=== PATIENT | female | born 1940 | race Caucasian/White ===

== ENCOUNTER 2020-08-21 09:09 | Inpatient (IN) | payer MEDICARE, OTHER, SELFPAY ==
[2020-08-21] VITALS (11 sets, daily range): BP systolic 109–126; BP diastolic 69–88; PULSE 86–129; RESP 16–33; TEMP 35.2–37.5; O2SAT 95–100; BMI 25.6; BMI 25.2; BMI 25.3
--- NOTE | 2020-08-21 09:34 | EKG12_ITS ---
Test Reason : NAUSEA/VOMITING Blood Pressure : / mmHG Vent. Rate : 117 BPM Atrial Rate : 088 BPM P-R Int : 000 ms QRS Dur : 082 ms QT Int : 346 ms P-R-T Axes : 000 005 014 degrees QTc Int : 482 ms Atrial fibrillation with premature ventricular or aberrantly conducted complexes Nonspecific ST and T wave abnormality Abnormal ECG Confirmed by JULIO C COOK, BRYANT ([id number]), makeup editor LEIA WHITE ([id number]) on 08/23/2020 10:44:14 AM Referred By: NAVEEN Confirmed By:BRYANT BUNCH MD
[2020-08-21] MEDS: 0.9% Normal Saline 1,000 ML 1000 ML IV (09:44)
[2020-08-21] MEDS: Ondansetron 4 MG/2 ML Vial IV ×2 (09:44→21:30)
--- NOTE | 2020-08-21 09:55 | RAD_ITS ---
STUDY: X-RAY CHEST REASON FOR EXAM: Female, 79 years old. N/V since Friday, pt. Just finished last radiation tx. for chest ca. on Friday, unable to eat or drink, cough TECHNIQUE: Single AP portable view of the chest. COMPARISON: None. FINDINGS: EKG electrodes are seen. Mild elevation of the left hemidiaphragm with infiltration in the left lower lobe. There is blunting of the left costophrenic angle. Mild degree of increased markings at the right lung base. Normal size heart. Normal mediastinum and juaquin. Normal visualized pulmonary arteries. There is atherosclerotic calcification of the aortic arch with tortuosity. There are diffuse degenerative changes of the visualized thoracic spine. Dextroscoliosis. Normal visualized ribs, clavicles, and shoulders. There is no demonstrated abnormality of the visualized soft tissue structures of the upper abdomen. RAD/Chest 1 View (Portable) IMPRESSION: Infiltration in the left lower lobe with blunting of the left costophrenic angle. Mild increased markings at the right lung base. Electronically Signed: Сергей England, at 10:10 EST , Service support ,
[2020-08-21 10:02] LABS: Absolute Lymphocyte Count 0.57 X10^3/uL (0.83-4.51); Absolute Neutrophil Count 3.3 X10^3/uL (2.0-7.7); Basophil# 0.01 X10^3/uL; Basophil% 0.2 % (0-1); Hemoglobin 11.8 g/dL (12.0-15.0); Lymphocyte # 0.57 X10^3/ul (4.0); Lymphocyte % 13.8 % (19-41); Mean Corp Hgb Conc 35.8 g/dL (32-36); Mean Corpuscular Hgb 30.1 pg (27.0-32.0); Mean Corpuscular Volume 84.2 fL (81-99); Mean Platelet Vol. 10.7 fl (6.2-12.0); Monocyte# 0.21 X10^3/uL; Monocyte% 5.1 % (0-10); NRBC Flagged by Analyzer 0 % (0-5); Neutrophil # 3.31 X10^3/uL (2.7-7.7); Neutrophil % 79.9 % (47-70); POSITIVE COUNT YES; POSITIVE DIFFERENTIAL YES; Platelet Count 78 K/mm3 (150-450); RBC Distribution Width CV 17.1 % (11.6-14.6); Red Blood Count 3.92 M/mm3 (4.2-5.4); White Blood Count 4.1 K/mm3 (4.4-11.0)
[2020-08-21 10:04] LABS: Differential Indicated SCAN CRITERIA MET
[2020-08-21 10:16] LABS: ALB/GLOB Ratio 0.8 RATIO (0.9-2.4); AST(SGOT) 17 U/L (15-37); Alanine Aminotransfer ALT/SGPT 27 U/L (13-56); Albumin, Serum 2.7 g/dL (3.2-5.0); Alkaline Phosphatase 66 U/L (45-117); Anion Gap 10 (5-15); BUN 10 mg/dL (7-18); BUN/Creat Ratio 13.7 RATIO (10-20); Calcium,Total 8.7 mg/dL (8.5-10.1); Chloride 94 mmol/L (98-107); Creatinine, Serum 0.73 mg/dL (0.55-1.02); EST Glomerular Filtration Rate 82 mL/min (>60); Est Glom Filt Rate - Afr Amer 99 mL/min (>60); Estimated Creatinine Clearance 36.08 ml/min; Globulin 3.4 g/dL (2.2-4.2); Glucose 144 mg/dL (74-106); Potassium 3.6 mmol/L (3.5-5.1); Protein, Total 6.1 g/dL (6.4-8.2); Sodium Level 131 mmol/L (136-145)
[2020-08-21 10:18] LABS: Differential Comment SCANNED
[2020-08-21 10:19] LABS: Lactic Acid 1.8 mmol/L (0.4-1.9); Platelet Estimate MOD DEC (ADEQ)
[2020-08-21 10:22] LABS: Mucous, Urine 0 SEEN /hpf (<or=2+); Squamous Epithelial Cells - UA 0 SEEN /hpf (5-10)
[2020-08-21 10:26] LABS: Color, Urine Yellow (Yellow); Glucose, Dipstick Normal (Normal); Ketone-Dipstick Negative (Negative); Leukocyte Esterase-Dipstick 500 /ul (Negative); Nitrite-Dipstick Positive (Negative); Occult Blood-Urine 50 /ul (Negative); Protein-Dipstick 30 mg/dl (Negative); Urine Bilirubin Dipstick Negative (Negative); Urine Clarity Cloudy (Clear); Urine Urobilinogen 1 mg/dl (Normal)
[2020-08-21 10:34] LABS: Bacteria 3+ /hpf (None Seen); Red Blood Cells-Urine 0-5 SEEN /hpf (0-5); White Blood Cells 25-50 SEEN /hpf (0-5)
--- NOTE | 2020-08-21 11:00 | ED.VISSUMM ---
- ER Visit Summary Date of Service: 08/21/20 Chief Complaint: Nausea and vomiting History of Present Illness: The patient is a 79 F with a history of chest cancer. She had chemotherapy. Her last treatment was 3 or 4 weeks ago. She also has a history of radiation therapy, last treatment was 3 days ago. She said her symptoms started last night. She cannot keep anything down. She cannot take her medications. She tried to take medicine for reflux, and she tried to drink some water, but she vomited them up. She denies any chest pain or shortness of breath, she does have a cough with sputum. Denies fevers, change in taste or smell. She denies abdominal pain or other GI symptoms. Denies urinary symptoms. She has a history of atrial fibrillation and takes a blood thinner shot Physical Examination: Afebrile. Heart rate 128, respiratory rate 22. Heart is irregularly irregular, tachycardic. Lungs are clear. Abdomen is soft and nontender. No guarding or rebound. Skin unremarkable. Alert and oriented. Test Results: EKG shows atrial fibrillation at a rate of 117. White count 4.1, hemoglobin 11.8, platelets 78, sodium 131, glucose 144, total bilirubin 1.4, urinalysis shows signs of infection. Troponin negative. Lactate 1.8. Covid 19 test negative. Cultures pending. Chest x-ray shows a left lower lobe infiltrate with increased markings at the right base. Reviewed by me and the radiologist. Emergency Department Course and Treatment: Patient was placed on monitor. Treated with IV fluids and Zofran. She continued to have a heart rate in the 100s to 120s. I will treat with additional fluids and Cardizem. She takes Cardizem at home. Troponin was negative. CBC showed some pancytopenia. Metabolic panel largely unremarkable. Urinalysis did show infection. Cultures are pending. She was treated with Rocephin. X-ray showed possible infiltrate, but she has a history of lung cancer, she does have a cough with sputum, but she has this at baseline. I am not convinced she has pneumonia. Her COVID-19 test was negative. I discussed the results with the hospitalist. She will evaluate for possible additional pneumonia antibiotic coverage. Patient is stable at this time will be admitted for further care. Treatment Plan: As above Disposition: Admission Impression: Lung cancer, atrial fibrillation, UTI, pneumonia This note was generated with [employer] dictation software. It may contain incorrect words, spelling, and punctuation that were not noted in review of the chart prior to signing ED Disposition - Plan for ED Patient: Referrals: Jamil Hooks MD [Primary Care Provider] -
[2020-08-21] MEDS: dilTIAZem 25 MG/5 ML Vial 10 MG IV BOLUS (11:44)
[2020-08-21] MEDS: Ceftriaxone 1 GM/50 ML BAG IV (12:10)
--- NOTE | 2020-08-21 12:45 | NURSING ---
Called lab. Lab stated they had enough urine from sample collected in ED to run legionella antigen and strep pneumoniae antigen.
--- NOTE | 2020-08-21 13:04 | US_ITS ---
STUDY: RENAL ULTRASOUND - COMPLETE REASON FOR EXAM: Female, 79 years old. UTI''S TECHNIQUE: Ultrasound evaluation of the kidneys was performed with real-time and static carson-scale imaging. COMPARISON: None. FINDINGS: RIGHT KIDNEY: Normal location of the right kidney, which is normal in size. The right kidney measures 10.0 x 4.3 x 5.0 cm. There is a normal cortex of the right kidney. The renal cortex measures 1.1 cm. There is no right renal mass or cyst. There are up to 7 mm right renal calculi. There is no right hydronephrosis. DISTAL RIGHT URETER: There is non-visualization of the distal right ureter. There is no demonstrated right ureterovesical junction calculus. There is a visualized right ureteral jet. LEFT KIDNEY: Normal location of the left kidney, which is normal in size. The left kidney measures 11.0 x 4.4 x 4.4 cm. There is a normal cortex of the left kidney. The renal cortex measures 1.0 cm. There is no left renal mass or cyst. There is a 5 mm calculus. There is no left hydronephrosis. DISTAL LEFT URETER: There is non-visualization of the distal left ureter. There is no demonstrated left ureterovesical junction calculus. There is a visualized left ureteral jet. BLADDER: The distended urinary bladder has a volume of 301 ml. There is a normal wall thickness of the distended urinary bladder. There is a right-sided posterior irregular intraluminal 1.6 x 1.4 x 1.2 cm nodule in the urinary bladder. There are no demonstrated bladder calculi. US/Kidney and Bladder IMPRESSION: Intraluminal irregular nodule in the urinary bladder possibly related to debris or small blood clots. Bilateral renal calculi, right more than left. No hydronephrosis. Electronically Signed: Ole Rodriguez DO at 23:54 EST Tel [phone], Service support ,
--- NOTE | 2020-08-21 13:04 | CT_ITS ---
STUDY: CT CHEST WITH CONTRAST REASON FOR EXAM: Female, 79 years old. SHORTNESS OF BREATH -- HX-LUNG CA, LAST CHEMO X3-4 WKS, LAST RADIATION X3 DAYS AGO -- NEGATIVE COVID RADIATION DOSAGE (If Supplied By Facility): CTDIvol = ( 11.41 ) mGy, DLP = ( 217.79 ) mGycm TECHNIQUE: Transaxial imaging was performed following intravenous administration of IV 100mL Isovue-300. Individualized dose optimization techniques were used for this CT. COMPARISON: None. FINDINGS: Ill-defined subpleural groundglass opacities are seen more prominent in the lung bases , may represent atypical pneumonia or viral pneumonia (COVID-19 ?). There is a soft tissue mass in the right lower lobe measures 5.3 x 4.4 cm consistent with neoplastic process. There is an infracarinal mediastinal mass encasing the left inferior pulmonary artery measuring approximately 8 x 6 x 4.4 cm consistent with metastatic lymphadenopathy. There is small left pleural effusion. Normal heart and pericardium. Normal enhanced pulmonary arteries. Normal aorta arch and descending thoracic aorta. Normal osseous structures. There is a mass in the right gland measures 2.7 x 2 cm may represent a metastatic lesion. CT/Chest WITH Contrast IMPRESSION: Ill-defined subpleural groundglass opacities are seen more prominent in the lung bases , may represent atypical pneumonia or viral pneumonia (COVID-19 ?). There is a soft tissue mass in the right lower lobe measures 5.3 x 4.4 cm consistent with neoplastic process. There is an infracarinal mediastinal mass encasing the left inferior pulmonary artery measuring approximately 8 x 6 x 4.4 cm consistent with metastatic lymphadenopathy. There is small left pleural effusion. There is no evidence of pulmonary embolus. Electronically Signed: Patricia Olivier, at 4:11 EST Tel , Service support ,
[2020-08-21] MEDS: Lactated Ringers 1,000 ML 70 ML IV (13:59)
--- NOTE | 2020-08-21 14:12 | HP.PCM_ITS ---
Problem List (1) Lung cancer Status: Acute (2) HTN (hypertension) Status: Chronic (3) Nausea & vomiting Status: Acute (4) GERD (gastroesophageal reflux disease) Status: Chronic (5) COPD (chronic obstructive pulmonary disease) Status: Chronic (6) PAF (paroxysmal atrial fibrillation) Status: Acute (7) Constipation Status: Chronic (8) Depression Status: Chronic (9) Thrush Status: Acute History of Present Illness Date of Admission: 08/21/20 Ms Terry is a 79 year old F with a recent dx, she thinks about April, of chest cancer (suspected lung as R main stem bronchus lesion noted on MRI order in the system) that she has been undergoing XRT and has had 1 round of chemo for this. She status that she has had issues swallowing and that she has nausea and vomiting intermittently at home and heartburn that has all been going on at times related to her XRT. She states that she presented today because she was so profoundly weak and hardly able to get OOB. (of note she did get OOB to wash her hands after using the bathroom independently while I was in the room). She states that she was not able to keep down her breakfast but is unable to tell me if she had nausea prior to eating. She states that she was very sick after her first chemo and that they have not done any chemo since and are planning on changing the regimen. She does admit that she knows her prognosis is not good overall but is unable to tell me where she has metastatic disease. She has not yet taken her meds today 2/2 her emesis this am. In the ED she was noted to be in A-fib with RVR and a rate 120-130 at rest. Her BP was WNL and she was satting 195-98% on RA. She states that she does wear 2 L at home. She also states that she has had an increased cough with a change in sputum production at home as well and states that she has been SOB. She is afebrile and her RR is in the 20's. Her lab work shows pancytopenia but a L shift. Her Na is 131, lactate is WNL and troponin is negative. Her UA looks infected with + nitrite and leuk esterase and 25-50 WBC on smear. CXR suggests LLL blunting and CT chest is pending. She was given IVF, Cardizem and started on CTX in the ED. She will be admitted to PCU for further care. Past Medical History Past Medical History (Chronic Problems): Chronic Problems HTN (hypertension) (Chronic) GERD (gastroesophageal reflux disease) (Chronic) COPD (chronic obstructive pulmonary disease) (Chronic) Constipation (Chronic) Depression (Chronic) Allergies codeine Adverse Reaction (Verified 08/21/20 09:10) Abd cramps/diarrhea Home Medications: Ambulatory Orders Medication Instructions Recorded Albuterol Inhaler [Ventolin Hfa 1 - 2 puff INHALATION Q4H PRN PRN 08/21/20 (SP)] Atenolol [Tenormin] 50 mg PO DAILY 08/21/20 Dexamethasone [Decadron] 2 mg PO QODAY 08/21/20 Diltiazem HCl [Cardizem] 120 mg PO DAILY 08/21/20 Enoxaparin Sodium [Lovenox] 40 mg SQ DAILY 08/21/20 Ipratropium/Albuterol Respimat 1 puff INHALATION 4X/DAY 08/21/20 [Combivent Respimat Inhal [place]] Nystatin 5 ml PO 4X/DAY 08/21/20 Ondansetron [Zofran] 8 mg PO Q8H PRN PRN 08/21/20 Polyethylene Glycol 3350 [Miralax] 17 gm PO PRN PRN 08/21/20 Prilosec 40 mg PO DAILY 08/21/20 Senna [Senokot] 1 tab PO PRN PRN 08/21/20 Wellbutrin Sr 150 mg PO DAILY 08/21/20 Surgical History: noncontributory Psychiatric History: No pertinent psych hx 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 Denies: Anorexia, Chills, Fever, Night Sweats, Weight Change Eyes: Denies: Blurred vision, Drainage, Eyelid Inflammation, Pain, Vision Change HEENT: Denies: Difficulty Hearing, Dysphasia, Head Aches, Nasal bleeding, Nasal Congestion, Post Nasal Drip, Sinus Congestion, Sinus Drainage, Sore Throat, Visual Changes Cardiovascular: Denies: Chest Pain, Claudication, Chest Pressure, Chest Tightness, Edema, Heaviness, Light Headedness, Orthopnea, Palpitations, Paroxysmal Noc. Dyspnea, Syncope Respiratory: Reports: Cough, Shortness of Breath, Shortness of breath upon exertion, Sputum production. Denies: Hemoptysis, Pleuritic Pain, Shortness of breath at rest, Wheezing Gastrointestinal: Reports: Constipation, Nausea, Vomiting. Denies: Abdominal Pain, Diarrhea, Dyspepsia, Hematemesis, Hematochezia, Melena Genitourinary: Reports: Dysuria. Denies: Frequency, Hematuria, Hesitancy, Incontinence, Nocturia, Retention, Urgency Musculoskeletal: Reports: Back Pain. Denies: Joint Pain, Joint stiffness, Joint swelling, Joint Tenderness, Muscle pain, Neck Pain Skin: Denies: Dryness, Jaundice, Lesions, Pruritis, Rash, Skin Changes, Wounds Neurological: Denies: Balance problems, Change in Speech, Slurred speech, Confusion, Difficulty swallowing, Focal weakness, Headaches, Incoordination, Numbness, Tingling, Tremor, Seizures Psychiatric: Denies: Anxiety, Depression Endocrine: Reports: Hx of Irradiation. Denies: Change in Body Habitus, Heat/ Cold Intolerance, Polydipsia, Polyuria, Hx of Thyroiditis Hematologic/ Lymphatic: Reports: Anemia. Denies: Adenopathy, Easy Bruising, Petechiae, Purpura VTE Information - Inpt Only VTE Present on Admission: No VTE Mechan Device Prophylaxis: SCD's VTE Pharm Prophylaxis ordered?: Yes Patient Problems: Active and Suspected Problems Lung cancer (Acute) Nausea & vomiting (Acute) PAF (paroxysmal atrial fibrillation) (Acute) Thrush (Acute) - Physical Exam Vitals/I&O's: Vital Signs Temp Pulse Resp BP Pulse Ox 97.9 F 86 20 H 119/75 100 08/21/20 12:50 08/21/20 12:50 08/21/20 12:50 08/21/20 12:50 08/21/20 12:50 Oxygen Flow Rate (L/min) 2 Oxygen Delivery Method Nasal Cannula Weight: 62.686 kg Body Mass Index (BMI) 25.2 Intake and Output for Last 24 Hours 08/19/20 08/20/20 08/21/20 23:59 23:59 23:59 Intake Total 1500 / 1500 Balance 1500 / 1500 General: Alert, Oriented x3, Cooperative, No apparent distress, Well developed, Well nourished, - - elderly WF sitting up in bed, mild SOB but appears comfortable overall HEENT: Atraumatic, PERRLA, EOMI, Normocephalic, EAC Clear Oral: No Gingival or Mucosal Lesions/ Ulcerations, Dry Mucosa, - - no thrush Neck: Supple, No JVD, Negative Carotid Bruits, Negative Hepatojugular Reflux, No Nodes, Trachea Midline, Thyroid Normal Size and Texture Lungs: Clear to auscultation, No rhonchi, No wheeze, No rales, Diminished Cardiovascular: Irregular Rate, Tachycardic, - - irreg rhythm Abdomen: Bowel Sounds Present, Soft, Non Tender, Non-Distended, No Hepato- splenomegaly Extremities: No clubbing, No cyanosis, No edema, Capillary Refill Less than 3 Seconds, Peripheral Pulses Normal Skin: No rashes, No breakdown Musculoskeletal: No Tenderness to Palpation of Joints or Extremities, No Muscle Wasting, Arthritic Changes Lymphatic: No Cervical, Supraclavicular, or Inguinal Adenopathy Neurological: Cranial nerves II-XII grossly intact, Deep Tendon Reflexes 2+/4 and Symmetrical, Neuro grossly intact, Muscle tone normal, Sensory exam intact to light touch and pain, Coordination normal Psych/Mental Status: Normal Affect, Appropriate Microbiology Past 72 Hours 08/21/20 09:40 Mucosa - Nose SARS-CoV-2 Antigen (Rapid) - Final Laboratory Results 08/21/20 09:30: WBC 4.1 L, RBC 3.92 L, Hgb 11.8 L, Hct 33.0 L, MCV 84.2, MCH 30.1, MCHC 35.8, RDW Std Deviation 51.0 H, RDW Coeff of Rashid 17.1 H, Plt Count 78 L, MPV 10.7, Immature Gran % (Auto) 1.000 H, Neut % (Auto) 79.9 H, Lymph % (Auto) 13.8 L, Charles % (Auto) 5.1, Eos % (Auto) 0.0, Baso % (Auto) 0.2, Absolute Neuts (auto) 3.3, Absolute Lymphs (auto) 0.57 L, Nucleated RBC % 0, Differential Comment SCANNED, Diff Path Review December foll, Platelet Estimate MOD 08/21/20 09:30: Sodium 131 L, Potassium 3.6, Chloride 94 L, Carbon Dioxide 27.0, Anion Gap 10, BUN 10, Creatinine 0.73, Estim Creat Clear Calc 36.08, Est GFR (MDRD) Af Amer 99, Est GFR (MDRD) Non-Af 82, BUN/Creatinine Ratio 13.7, Glucose 144 H, Calcium 8.7, Total Bilirubin 1.40 H, AST 17, ALT 27, Alkaline Phosphatase 66, Total Protein 6.1 L, Albumin 2.7 L, Globulin 3.4, Albumin/Globulin Ratio 0.8 L 08/21/20 09:30: Lactic Acid 1.8 08/21/20 09:30: Troponin I < 0.015 08/21/20 10:14: Urine Color Yellow, Urine Clarity Cloudy, Urine pH 7.0, Ur Specific [place] 1.010, Urine Protein 30 H, Urine Glucose (UA) Normal, Urine Ketones Negative, Urine Occult Blood 50 H, Urine Nitrite Positive H, Urine Bilirubin Negative, Urine Urobilinogen 1 H, Ur Leukocyte Esterase 500 H, Urine RBC 0-5 SEEN, Urine WBC 25-50 SEEN, Ur Squamous Epith Cells 0 SEEN, Urine Bacteria 3+, Urine Mucus 0 SEEN Current Medications Acetaminophen (Acetaminophen 325 Mg Suppository) 650 mg RECTAL Q4H PRN PRN PRN Reason: Pain Score 1-10/Temp > 100.7 F Albuterol Sulfate (Albuterol 2.5 Mg/3 Ml Vial.Neb.) 2.5 mg INHALATION Q2H PRN PRN PRN Reason: SOB/Wheezing Atenolol (Atenolol 50 Mg Tablet) 50 mg PO DAILY [facility] Dexamethasone (Dexamethasone 4 Mg Tablet) 4 mg PO TIDCM [facility] Diltiazem HCl (Diltiazem Cd 120 Mg Capsule) 120 mg PO DAILY [facility] Enoxaparin Sodium (Enoxaparin 40 Mg/0.4 Ml Syringe) 40 mg SC DAILY [facility] Ceftriaxone Sodium (Rocephin) 1 gm in 50 mls @ 100 mls/hr IV Q24 BRAD Stop: 08/29/20 10:01 Azithromycin 500 mg/ Dextrose 255 mls @ 250 mls/hr IV X1 ONE Stop: 08/21/20 14:16 Azithromycin 500 mg/ Dextrose 255 mls @ 250 mls/hr IV Q24 [facility] Lactated Ringer's () 1,000 mls @ 70 mls/hr IV .[id number] [facility] Last Admin: 08/21/20 13:59 Dose: 70 mls/hr Documented by: Pantoprazole Sodium 40 mg/ (Sodium Chloride) 110 mls @ 330 mls/hr IV Q24 BRAD Sodium Chloride () 250 mls @ 15 mls/hr IV .[id number] PRN PRN Reason: Saline Flush Sodium Chloride () 250 mls @ 15 mls/hr IV .[id number] PRN PRN Reason: Additional IVPB Infusion Morphine Sulfate (Morphine 2 Mg/Ml Syringe) 2 mg IV Q3H PRN PRN PRN Reason: Pain Score 6-10 Ondansetron HCl (Ondansetron 4 Mg/2 Ml Vial) 4 mg IV Q8H PRN PRN PRN Reason: NAUSEA/VOMITING Polyethylene Glycol (Polyethylene Glycol 3350 17 Gm Packet) 17 gm PO PRN PRN PRN Reason: Constipation Sodium Chloride (0.9% Saline Lock 10 Ml Syringe) 10 - 40 ml IV UD PRN PRN Reason: SALINE FLUSH Assessment/Plan All Active Problems Lung cancer (Acute) Nausea & vomiting (Acute) PAF (paroxysmal atrial fibrillation) (Acute) Thrush (Acute) Nausea and vomiting -sounds like this is a chronic issue with acute exacerbation -check CT chest for esophageal issues with hx -could have motility issues related to chemo -antiemetics -IVF -CLD for now -continue home decadron--> may help with nausea too PAF now in RVR -continue atenolol and Cardizem -takes Lovenox 40 mg daily but suspect this is for her cancer and DVT prophylaxis -not on AC otherwise -maybe a high bleeding risk with malignancy Pancytopenia 2/2 Chemotherapy -no need for transfusions -monitor Suspected UTI -UA looks infected -start CTX -urine cx pending -blood cx pending ? PNA -CXR suggestive and pt with cough and change in sputum -CT chest pending with cancer hx -check urine antigens -no recent admissions -prn aerosols -CTX and Azithro for now Hyponatremia -suspect related to Lung Ca -trend Chest Cancer -suspect lung based on conversation with pt but unable to 100% verify -on XRT and chemo -pt states that she knows her prognosis is poor and thinks she was diagonosed with this in 04/2020 -sees Dr. Cosme -CT chest Pending HTN -continue home meds COPD -prn nebs -has stopped smoking GERD -PPI Constipation -miralax PRN Thrush -Nystatin Depression -cont Wellbutrin DVT prophylaxis -Lovenox Code Status -Pt is very clear and ED nurse witnessed the conversation--> DNR-CCA no ETT Inpatient E&M: 29803 Init Hosp L3
[2020-08-21] MEDS: Ipratropium/Albuterol Sulfate 3 ML AMPUL.NEB INHALATION (19:50)
[2020-08-21] MEDS: NYSTATIN 500,000 UNIT/5 ML UDC 500000 UNIT PO (21:29)
[2020-08-21] MEDS: 0.9% Saline Lock 10 ML Syringe IV (21:30)
--- NOTE | 2020-08-21 22:09 | EKG12_ITS ---
Test Reason : CP Blood Pressure : / mmHG Vent. Rate : 121 BPM Atrial Rate : 113 BPM P-R Int : 000 ms QRS Dur : 088 ms QT Int : 344 ms P-R-T Axes : 000 008 010 degrees QTc Int : 488 ms Atrial fibrillation with premature ventricular or aberrantly conducted complexes Nonspecific ST-T Change Abnormal ECG When compared with ECG of 21-AUG-2020 09:51, MANUAL COMPARISON REQUIRED, DATA IS UNCONFIRMED Confirmed by NOMI COOK, NITHIN ([id number]), supervising film or videotape editor LEIA WHITE ([id number]) on 08/31/2020 12:01:17 PM Referred By: JER Confirmed By:LISA MOSHER MD
[2020-08-21] MEDS: Atenolol 50 MG Tablet PO (22:30)
--- NOTE | 2020-08-21 23:49 | PCS.PANDOC ---
PANDEMIC DOCUMENTATION INITIATED: Date: 08/21/2020 Time: 1900
[2020-08-22] VITALS (16 sets, daily range): BP systolic 106–136; BP diastolic 71–85; PULSE 74–106; RESP 16–22; TEMP 36.4–37.3; O2SAT 93–99
[2020-08-22] MEDS: Lactated Ringers 1,000 ML 70 ML IV ×2 (04:14→19:40)
[2020-08-22 06:08] LABS: Absolute Lymphocyte Count 0.54 X10^3/uL (0.83-4.51); Absolute Neutrophil Count 2.7 X10^3/uL (2.0-7.7); Basophil# 0.01 X10^3/uL; Basophil% 0.3 % (0-1); Eosinophil# 0.01 X10^3/uL; Eosinophils% 0.3 % (0-5); Hematocrit 28.6 % (37-47); Hemoglobin 9.9 g/dL (12.0-15.0); Lymphocyte # 0.54 X10^3/ul (4.0); Lymphocyte % 15.1 % (19-41); Mean Corp Hgb Conc 34.6 g/dL (32-36); Mean Corpuscular Hgb 29.2 pg (27.0-32.0); Mean Corpuscular Volume 84.4 fL (81-99); Mean Platelet Vol. 10.4 fl (6.2-12.0); Monocyte# 0.24 X10^3/uL; Monocyte% 6.7 % (0-10); NRBC Flagged by Analyzer 0 % (0-5); Neutrophil # 2.74 X10^3/uL (2.7-7.7); Neutrophil % 76.8 % (47-70); POSITIVE COUNT YES; POSITIVE DIFFERENTIAL YES; Platelet Count 82 K/mm3 (150-450); RBC Distribution Width CV 17.1 % (11.6-14.6); Red Blood Count 3.39 M/mm3 (4.2-5.4); White Blood Count 3.6 K/mm3 (4.4-11.0)
[2020-08-22 06:12] LABS: Differential Indicated SCAN CRITERIA MET
[2020-08-22 06:45] LABS: ALB/GLOB Ratio 0.9 RATIO (0.9-2.4); AST(SGOT) 11 U/L (15-37); Alanine Aminotransfer ALT/SGPT 20 U/L (13-56); Albumin, Serum 2.3 g/dL (3.2-5.0); Alkaline Phosphatase 55 U/L (45-117); Anion Gap 5 (5-15); BUN 7 mg/dL (7-18); Calcium,Total 7.8 mg/dL (8.5-10.1); Chloride 101 mmol/L (98-107); Creatinine, Serum 0.54 mg/dL (0.55-1.02); EST Glomerular Filtration Rate 116 mL/min (>60); Est Glom Filt Rate - Afr Amer 140 mL/min (>60); Estimated Creatinine Clearance 36.08 ml/min; Globulin 2.5 g/dL (2.2-4.2); Glucose 116 mg/dL (74-106); Magnesium 1.8 mg/dL (1.6-2.6); Phosphorus 2.6 mg/dL (2.5-4.9); Potassium 3.3 mmol/L (3.5-5.1); Protein, Total 4.8 g/dL (6.4-8.2); Sodium Level 134 mmol/L (136-145); Thyroid Stim Hormone (TSH) 1.36 uIU/mL (0.358-3.74)
[2020-08-22 06:55] LABS: Differential Comment SCANNED; Platelet Estimate MOD DEC (ADEQ)
[2020-08-22] MEDS: Ipratropium/Albuterol Sulfate 3 ML AMPUL.NEB INHALATION ×2 (07:19→13:46)
[2020-08-22] MEDS: dexAMETHasone 2 MG TABLET PO (10:03)
[2020-08-22] MEDS: dilTIAZem CD 120 MG Capsule PO (10:03)
[2020-08-22] MEDS: Enoxaparin 40 MG/0.4 ML Syringe SC (10:03)
[2020-08-22] MEDS: Atenolol 50 MG Tablet PO (10:15)
[2020-08-22] MEDS: Ceftriaxone 1 GM/50 ML BAG IV (10:49)
--- NOTE | 2020-08-22 11:20 | CASEMGMT ---
RN SURENDRA BELT PRESS OPERATOR CM to room to meet with patient for initial transition planning/care coordination assessment. MASHA AGOSTO introduced self and role at [facility]. Pt voices understanding and consents to assessment at this time. Pt resting in bed in no distress at this time. Pt is A/O at this time and answers all questions appropriately. Care providers, pharmacy, and demographics verified/updated at this time. PCP: Dr Jamil Hooks Specialists: Dr Cosme--oncology, Dr Escalera--nephrology [facility]erred [facility]acy: [facility] Insurance: [facility] Prescription Benefit: Yes Living Will/HPOA: Has both LW and Healthcare POA, who is her daughter, Lin. LNOK: Daughter, Lin/POSusan. 2 sons Living Arrangements: Lives alone in one-story home w/ramp entrance. Independent w/ADL's. Lin has been staying with her on/off to assist with IADL's--laundry, meals, grocery shopping, home tasks. Pt manages her own appts and medications. Transportation: Daughter, Lin DME: has the following DME: shower chair, rails/grab bars, hand held shower, nebulizer, walker, O2 @ 2 L/M continuously through [employer]. States daughter had portable tank in her car she can bring in @ d/c. Plans on getting a higher toilet seat soon. Pt states no need for further DME at this time. HHC/SNF: No hx of SNF. Has had HHC in the past/couple months ago--an agency out of [employer], but she does not remember the name. She states it was for therapy but she was too weak to participate so she cancelled their service. She states may be interested in HHC for nursing, but wants to talk with her daughter about it first. She does not want to go with the same agency as previously. Pt provided with list of local HHC agencies. Pt wishes to return home and states has no concerns with going home at time of discharge. CM to follow for any increase in home oxygen needs and any further discharge planning/needs. Pt voices no further concerns/needs at this time. Advised pt to ask for CM if any further questions/concerns/needs arise. Voices understanding. PLAN: Home. May be interested in HHC for SN. Does not want therapy. Follow for any increase in O2 needs Bobbi BSN RN CM
--- NOTE | 2020-08-22 11:22 | PN_ITS ---
Patient Problems: Active and Suspected Problems Lung cancer (Acute) Nausea & vomiting (Acute) PAF (paroxysmal atrial fibrillation) (Acute) Thrush (Acute) Subjective: Still with nausea and vomiting. Had dry heaves this am. Still happening whenever she takes in food. States that she has tumor that sometimes presses on her esophagus. Feels a little better, maybe, but not able to take in much PO. Vitals/I&O's: Vital Signs Temp Pulse Resp BP Pulse Ox 99.2 F H 106 H 18 126/84 H 94 08/22/20 10:00 08/22/20 10:00 08/22/20 10:00 08/22/20 10:00 08/22/20 10:00 Oxygen Flow Rate (L/min) 2 Oxygen Delivery Method Room Air Weight: 62.7 kg Body Mass Index (BMI) 25.2 Intake and Output for Last 24 Hours 08/20/20 08/21/20 08/22/20 23:59 23:59 23:59 Intake Total 2778 / 2778 879.75 / 879.75 Output Total 650 / 650 Balance 2778 / 2778 229.75 / 229.75 General: Alert, Oriented x3, Cooperative, No apparent distress, - - elderly WF sitting up in bed, appears comfortable, nsg at bedside Lungs: No rhonchi, No wheeze, No rales, Diminished Cardiovascular: Regular rate, Regular Rhythm, Normal S1, Normal S2, No murmurs, No Ectopic Activity, No rub noted, No Gallop Abdomen: Bowel Sounds Present, Soft, Non Tender, Non-Distended, No Hepato- splenomegaly Extremities: No clubbing, No cyanosis, No edema, Capillary Refill Less than 3 Seconds, Peripheral Pulses Normal Skin: No rashes, No breakdown Musculoskeletal: No Tenderness to Palpation of Joints or Extremities, No Muscle Wasting, Arthritic Changes Neurological: Cranial nerves II-XII grossly intact, Neuro grossly intact Psych/Mental Status: Normal Affect, Appropriate Microbiology Past 72 Hours 08/21/20 11:15 Urine, Random Urine Culture - Preliminary 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 08/21/20 11:15 Urine, Clean Catch Legionella Antigen - Final 08/21/20 11:15 Urine, Clean Catch Streptococcus pneumoniae Antigen (M - Final 08/21/20 09:40 Mucosa - Nose SARS-CoV-2 Antigen (Rapid) - Final Laboratory Results 08/22/20 04:43: COVID-19 (ALLY) Not Detected 08/22/20 05:20: WBC 3.6 L, RBC 3.39 L, Hgb 9.9 L, Hct 28.6 L, MCV 84.4, MCH 29.2, MCHC 34.6, RDW Std Deviation 52.0 H, RDW Coeff of Rashid 17.1 H, Plt Count 82 L, MPV 10.4, Immature Gran % (Auto) 0.800, Neut % (Auto) 76.8 H, Lymph % (Auto) 15.1 L, [place] % (Auto) 6.7, Eos % (Auto) 0.3, Baso % (Auto) 0.3, Absolute Neuts ( auto) 2.7, Absolute Lymphs (auto) 0.54 L, Nucleated RBC % 0, Differential Comment SCANNED, Diff Path Review December, Platelet Estimate MOD 08/22/20 05:20: Sodium 134 L, Potassium 3.3 L, Chloride 101, Carbon Dioxide 28.0, Anion Gap 5, BUN 7, Creatinine 0.54 L, Estim Creat Clear Calc 36.08, Est G FR (MDRD) Af Amer 140, Est GFR (MDRD) Non-Af 116, BUN/Creatinine Ratio 13.0, Glucose 116 H, Calcium 7.8 L, Phosphorus 2.6, Magnesium 1.8, Total Bilirubin 1.10 H, AST 11 L, ALT 20, Alkaline Phosphatase 55, Total Protein 4.8 L, Albumin 2.3 L, Globulin 2.5, Albumin/Globulin Ratio 0.9, TSH 1.36 Current Medications Acetaminophen (Acetaminophen 650 Mg Suppository) 650 mg RECTAL Q4H PRN PRN PRN Reason: Pain Score 1-10/Temp > 100.7 F Albuterol Sulfate (Albuterol 2.5 Mg/3 Ml Vial.Neb.) 2.5 mg INHALATION Q2H PRN PRN PRN Reason: SOB/Wheezing Albuterol/Ipratropium (Ipratropium/Albuterol Sulfate 3 Ml Ampul.Neb) 3 ml INHALATION Q6HWA.RT [facility] Last Admin: 08/22/20 07:19 Dose: 3 ml Documented by: Atenolol (Atenolol 50 Mg Tablet) 50 mg PO DAILY [facility] Last Admin: 08/22/20 10:15 Dose: 50 mg Documented by: Dexamethasone (Dexamethasone 2 Mg Tablet) 2 mg PO QODAY [facility] Last Admin: 08/22/20 10:03 Dose: 2 mg Documented by: Diltiazem HCl (Diltiazem Cd 120 Mg Capsule) 120 mg PO DAILY [facility] Last Admin: 08/22/20 10:03 Dose: 120 mg Documented by: Enoxaparin Sodium (Enoxaparin 40 Mg/0.4 Ml Syringe) 40 mg SC DAILY [facility] Last Admin: 08/22/20 10:03 Dose: 40 mg Documented by: Ceftriaxone Sodium (Rocephin) 1 gm in 50 mls @ 100 mls/hr IV Q24 [facility] Stop: 08/29/20 10:01 Last Admin: 08/22/20 10:49 Dose: 100 mls/hr Documented by: Azithromycin 500 mg/ Dextrose 255 mls @ 250 mls/hr IV Q24 [facility] Lactated Ringer's () 1,000 mls @ 70 mls/hr IV .[id number] [facility] Last Infusion: 08/22/20 10:49 Dose: 0 mls/hr Documented by: Pantoprazole Sodium 40 mg/ (Sodium Chloride) 110 mls @ 330 mls/hr IV Q24 [facility] Last Infusion: 08/22/20 10:35 Dose: Infused Documented by: Sodium Chloride () 250 mls @ 15 mls/hr IV .[id number] PRN PRN Reason: Saline Flush Last Infusion: 08/22/20 10:51 Dose: 0 mls/hr Documented by: Sodium Chloride () 250 mls @ 15 mls/hr IV .[id number] PRN PRN Reason: Additional IVPB Infusion Morphine Sulfate (Morphine 2 Mg/Ml Syringe) 2 mg IV Q3H PRN PRN PRN Reason: Pain Score 6-10 Nystatin (Nystatin 500,000 Unit/5 Ml Udc) 500,000 unit PO 4X/DAY [facility] Last Admin: 08/22/20 10:01 Dose: Not Given Documented by: Ondansetron HCl (Ondansetron 4 Mg/2 Ml Vial) 4 mg IV Q8H PRN PRN PRN Reason: NAUSEA/VOMITING Last Admin: 08/21/20 21:30 Dose: 4 mg Documented by: Polyethylene Glycol (Polyethylene Glycol 3350 17 Gm Packet) 17 gm PO PRN PRN PRN Reason: Constipation Sodium Chloride (0.9% Saline Lock 10 Ml Syringe) 10 - 40 ml IV UD PRN PRN Reason: SALINE FLUSH Last Admin: 08/21/20 21:30 Dose: 10 ml Documented by: AMERICO Vital Signs/Narrative: Vital Signs Temp Pulse Resp BP Pulse Ox 08/22/20 10:00 99.2 F H 106 H 18 126/84 H 94 08/22/20 07:51 95 22 H 08/22/20 07:41 98 Medical Necessity - Tobacco Use Smoking Status: Former smoker Assessment/Plan All Active Problems Lung cancer (Acute) Nausea & vomiting (Acute) PAF (paroxysmal atrial fibrillation) (Acute) Thrush (Acute) Nausea and vomiting -suspect this is related to her mediastinal LAD -consult Onc for help with disease progression and options--> ? EGD with stent vs PEG vs PEDIATRIC ASSISTANT -need input -antiemetics -cont IVF -CLD for now -continue home decadron--> may help with nausea too PAF -continue BB and hold CCB but will switch to IV BB with issues with PO intake -may need prn Cardizem -takes Lovenox 40 mg daily but suspect this is for her cancer and DVT prophylaxis -not on AC otherwise -maybe a high bleeding risk with malignancy Pancytopenia 2/2 Chemotherapy -no need for transfusions -drop in hgb but suspect dilutional -no s/o bleeding -monitor GNR LF UTI -UA looks infected -CTX and await identification and sensitivities -urine cx pending but Gram Stain + for GNRLF -blood cx pending -US shows small B Calculi but no hydro or pyelo SOB -CXR suggestive and pt with cough and change in sputum -CT with no infiltrate/PE -urine antigens negative -d/c azithro -prn aerosols -suspect related to baseline lung disease and cancer Hyponatremia -suspect related to Lung Ca/dehydration -better today -trend Lung Cancer of unknown type -CT chest from 08/21 shows a 5.3 x4.4 RLL soft tissue mass and infracarinal mediastinal mass encasing the L inferior pulmonary artery that is 8 x 6 x 4.4 c/w LAD -suspect that this mass may be contributing digestive issues -on XRT and chemo -sees Dr. Cosme--> will consult today with ongoing issues and CT findings for prognosis -pt states that she knows her prognosis is poor and thinks she was diagnosed with this in 04/2020 HTN -change to IV with limited PO intake -will use cardizem PRN for HR COPD -prn nebs -has stopped smoking GERD -PPI Constipation -miralax PRN Thrush -Nystatin Depression -cont Wellbutrin DVT prophylaxis -Lovenox Code Status -Pt is very clear and ED nurse witnessed the conversation--> DNR-CCA no ETT Inpatient E&M: 85000 Subs Hosp L3
[2020-08-22 13:11] LABS: Pathologist Review Reviewed
[2020-08-22 13:12] LABS: Pathologist Review Reviewed
[2020-08-22] MEDS: Metoprolol Tartrate 5 MG/5 ML Vial IV ×2 (18:07→23:40)
[2020-08-22] MEDS: NYSTATIN 500,000 UNIT/5 ML UDC 500000 UNIT PO (20:57)
[2020-08-22] MEDS: 0.9% Saline Lock 10 ML Syringe IV (23:39)
[2020-08-23] VITALS (18 sets, daily range): BP systolic 115–151; BP diastolic 71–79; PULSE 62–112; RESP 16–20; TEMP 36.1–36.6; O2SAT 95–100
[2020-08-23 06:05] LABS: Absolute Lymphocyte Count 0.59 X10^3/uL (0.83-4.51); Absolute Neutrophil Count 1.9 X10^3/uL (2.0-7.7); Basophil# 0.01 X10^3/uL; Basophil% 0.4 % (0-1); Hematocrit 27.7 % (37-47); Hemoglobin 9.3 g/dL (12.0-15.0); Lymphocyte # 0.59 X10^3/ul (4.0); Lymphocyte % 21.8 % (19-41); Mean Corp Hgb Conc 33.6 g/dL (32-36); Mean Corpuscular Hgb 28.6 pg (27.0-32.0); Mean Corpuscular Volume 85.2 fL (81-99); Mean Platelet Vol. 9.9 fl (6.2-12.0); Monocyte# 0.18 X10^3/uL; Monocyte% 6.6 % (0-10); NRBC Flagged by Analyzer 0 % (0-5); Neutrophil # 1.89 X10^3/uL (2.7-7.7); Neutrophil % 69.7 % (47-70); POSITIVE COUNT YES; POSITIVE DIFFERENTIAL YES; Platelet Count 83 K/mm3 (150-450); RBC Distribution Width CV 17.2 % (11.6-14.6); RBC Distribution Width SD 52.6 fl (35.1-43.9); Red Blood Count 3.25 M/mm3 (4.2-5.4); White Blood Count 2.7 K/mm3 (4.4-11.0)
[2020-08-23] MEDS: Ipratropium/Albuterol Sulfate 3 ML AMPUL.NEB INHALATION ×3 (06:44→19:27)
[2020-08-23 06:48] LABS: Differential Indicated SCAN CRITERIA MET
[2020-08-23] MEDS: Metoprolol Tartrate 5 MG/5 ML Vial IV ×4 (06:54→23:20)
[2020-08-23] MEDS: 0.9% Saline Lock 10 ML Syringe IV ×2 (06:54→23:21)
[2020-08-23 07:15] LABS: Anisocytosis 1+; Differential Comment SCANNED; Microcytosis 1+
[2020-08-23] MEDS: Enoxaparin 40 MG/0.4 ML Syringe SC (08:40)
[2020-08-23] MEDS: NYSTATIN 500,000 UNIT/5 ML UDC 500000 UNIT PO ×4 (08:40→20:10)
[2020-08-23] MEDS: Ceftriaxone 1 GM/50 ML BAG IV (09:17)
--- NOTE | 2020-08-23 09:49 | PCM.PN.HOSP ---
Patient Problems: Active and Suspected Problems Lung cancer (Acute) Nausea & vomiting (Acute) PAF (paroxysmal atrial fibrillation) (Acute) Thrush (Acute) Reason for Visit: dysphagia Subjective: tolerating clear liquids so far. would like diet advanced. Vitals/I&O's: Vital Signs Temp Pulse Resp BP Pulse Ox 36.6 C 70 20 H 151/76 H 99 08/23/20 05:40 08/23/20 06:54 08/23/20 06:45 08/23/20 06:54 08/23/20 06:45 Oxygen Flow Rate (L/min) 2 Oxygen Delivery Method Nasal Cannula Weight: 62.7 kg Body Mass Index (BMI) 25.2 Intake and Output for Last 24 Hours 08/21/20 08/22/20 08/23/20 23:59 23:59 23:59 Intake Total 2778 / 2778 2200.75 / 2200.75 110 / 110 Output Total 650 / 650 300 / 300 Balance 2778 / 2778 1550.75 / 1550.75 -190 / -190 General: Alert, No apparent distress HEENT: Atraumatic, Normocephalic Oral: Moist Mucosa, No Gingival or Mucosal Lesions/ Ulcerations Neck: No Nodes, Thyroid Normal Size and Texture Lungs: Clear to auscultation, Normal air movement, No rhonchi, No wheeze, No rales Cardiovascular: Regular rate, Regular Rhythm, Normal S1, Normal S2, No murmurs Abdomen: Bowel Sounds Present, Soft, Non Tender, Non-Distended, No Hepato-splenomegaly Extremities: No edema, No Calf Tenderness Microbiology Past 72 Hours 08/21/20 11:15 Urine, Random Urine Culture - Final Klebsiella pneumoniae sp pneum 08/21/20 11:15 Urine, Clean Catch Legionella Antigen - Final 08/21/20 11:15 Urine, Clean Catch Streptococcus pneumoniae Antigen (M - Final 08/21/20 09:40 Mucosa - Nose SARS-CoV-2 Antigen (Rapid) - Final Laboratory Results 08/21/20 09:30: Diff Path Review Reviewed 08/22/20 05:20: Diff Path Review Reviewed 08/23/20 05:35: WBC 2.7 L, RBC 3.25 L, Hgb 9.3 L, Hct 27.7 L, MCV 85.2, MCH 28.6, MCHC 33.6, RDW Std Deviation 52.6 H, RDW Coeff of Rashid 17.2 H, Plt Count 83 L, MPV 9.9, Immature Gran % (Auto) 1.500 H, Neut % (Auto) 69.7, Lymph % (Auto) 21.8, [place] % (Auto) 6.6, Eos % (Auto) 0.0, Baso % (Auto) 0.4, Absolute Neuts (auto) 1.9 L, Absolute Lymphs (auto) 0.59 L, Nucleated RBC % 0, Differential Comment SCANNED, Diff Path Review May foll, Anisocytosis 1+, Microcytosis 1+ Current Medications Acetaminophen (Acetaminophen 650 Mg Suppository) 650 mg RECTAL Q4H PRN PRN PRN Reason: Pain Score 1-10/Temp > 100.7 F Albuterol Sulfate (Albuterol 2.5 Mg/3 Ml Vial.Neb.) 2.5 mg INHALATION Q2H PRN PRN PRN Reason: SOB/Wheezing Albuterol/Ipratropium (Ipratropium/Albuterol Sulfate 3 Ml Ampul.Neb) 3 ml INHALATION Q6HWA.RT [facility] Last Admin: 08/23/20 06:44 Dose: 3 ml Documented by: Dexamethasone (Dexamethasone 2 Mg Tablet) 2 mg PO QODAY [facility] Last Admin: 08/22/20 10:03 Dose: 2 mg Documented by: Enoxaparin Sodium (Enoxaparin 40 Mg/0.4 Ml Syringe) 40 mg SC DAILY [facility] Last Admin: 08/23/20 08:40 Dose: 40 mg Documented by: Ceftriaxone Sodium (Rocephin) 1 gm in 50 mls @ 100 mls/hr IV Q24 [facility] Stop: 08/29/20 10:01 Last Admin: 08/23/20 09:17 Dose: 100 mls/hr Documented by: Azithromycin 500 mg/ Dextrose 255 mls @ 250 mls/hr IV Q24 [facility] Last Infusion: 08/22/20 12:52 Dose: Infused Documented by: Lactated Ringer's () 1,000 mls @ 70 mls/hr IV .[id number] [facility] Last Admin: 08/22/20 19:40 Dose: 70 mls/hr Documented by: Pantoprazole Sodium 40 mg/ (Sodium Chloride) 110 mls @ 330 mls/hr IV Q24 [facility] Last Infusion: 08/23/20 09:13 Dose: Infused Documented by: Sodium Chloride () 250 mls @ 15 mls/hr IV .[id number] PRN PRN Reason: Saline Flush Last Admin: 08/23/20 09:21 Dose: 15 mls/hr Documented by: Sodium Chloride () 250 mls @ 15 mls/hr IV .[id number] PRN PRN Reason: Additional IVPB Infusion Lidocaine/Diphenhydr/Alum/Mg/Simeth (Bmx Liquid 180 Ml) 10 ml PO Q4H [facility] Metoprolol Tartrate (Metoprolol Tartrate 5 Mg/5 Ml Vial) 5 mg IV Q6 [facility] Last Admin: 08/23/20 06:54 Dose: 5 mg Documented by: Morphine Sulfate (Morphine 2 Mg/Ml Syringe) 2 mg IV Q3H PRN PRN PRN Reason: Pain Score 6-10 Nystatin (Nystatin 500,000 Unit/5 Ml Udc) 500,000 unit PO 4X/DAY [facility] Last Admin: 08/23/20 08:40 Dose: 500,000 unit Documented by: Ondansetron HCl (Ondansetron 4 Mg/2 Ml Vial) 4 mg IV Q8H PRN PRN PRN Reason: NAUSEA/VOMITING Last Admin: 08/21/20 21:30 Dose: 4 mg Documented by: Polyethylene Glycol (Polyethylene Glycol 3350 17 Gm Packet) 17 gm PO PRN PRN PRN Reason: Constipation Sodium Chloride (0.9% Saline Lock 10 Ml Syringe) 10 - 40 ml IV UD PRN PRN Reason: SALINE FLUSH Last Admin: 08/23/20 06:54 Dose: 10 ml Documented by: STROKE Vital Signs/Narrative: Vital Signs Pulse Resp BP Pulse Ox 08/23/20 06:54 70 151/76 H 08/23/20 06:52 73 08/23/20 06:45 62 20 H 99 Medical Necessity - Tobacco Use Smoking Status: Former smoker Assessment/Plan All Active Problems Lung cancer (Acute) Nausea & vomiting (Acute) PAF (paroxysmal atrial fibrillation) (Acute) Thrush (Acute) 1. dysphagia DW Dr. Cosme, he is concerned for radiation esophagitis and recommended scheduled BMX. If refractory, may consider temporary Dobhoff/[place]ak advance diet to fulls as she appears to be tolerating clears. 2. pAF rate controlled switch IV metop back to oral dilt if tolerates advanced diet 3. 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 Klebsiella UTI R to amp/unasyn/nitro continue CTX for now, can change to PO cipro when tolerates PO and treat through the 5. 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 Suspected radiation pneumonitis follow up imaging as outpt doubt pneumonia, so I will dc azithromycin 7. VTE prophylaxis: LMWH Inpatient E&M: 27999 Subs Hosp L2
[2020-08-23] MEDS: Lactated Ringers 1,000 ML 70 ML IV ×2 (10:50→23:28)
[2020-08-23] MEDS: BMX LIQUID 180 ML 10 ML PO ×4 (11:29→20:10)
[2020-08-23 14:39] LABS: Pathologist Review Reviewed
[2020-08-24] VITALS (16 sets, daily range): BP systolic 112–133; BP diastolic 70–94; PULSE 86–110; RESP 16–19; TEMP 36.4–37; O2SAT 93–98
[2020-08-24] MEDS: Metoprolol Tartrate 5 MG/5 ML Vial IV (05:09)
[2020-08-24] MEDS: 0.9% Saline Lock 10 ML Syringe IV ×2 (05:09→12:06)
[2020-08-24] MEDS: BMX LIQUID 180 ML 10 ML PO ×5 (05:09→21:10)
[2020-08-24 05:39] LABS: Absolute Lymphocyte Count 0.56 X10^3/uL (0.83-4.51); Absolute Neutrophil Count 1.9 X10^3/uL (2.0-7.7); Hematocrit 28.1 % (37-47); Hemoglobin 9.6 g/dL (12.0-15.0); Lymphocyte # 0.56 X10^3/ul (4.0); Lymphocyte % 20.7 % (19-41); Mean Corp Hgb Conc 34.2 g/dL (32-36); Mean Corpuscular Hgb 29.2 pg (27.0-32.0); Mean Corpuscular Volume 85.4 fL (81-99); Mean Platelet Vol. 9.4 fl (6.2-12.0); Monocyte% 7.4 % (0-10); NRBC Flagged by Analyzer 0 % (0-5); Neutrophil # 1.91 X10^3/uL (2.7-7.7); Neutrophil % 70.8 % (47-70); POSITIVE DIFFERENTIAL YES; Platelet Count 101 K/mm3 (150-450); RBC Distribution Width CV 17.2 % (11.6-14.6); RBC Distribution Width SD 52.7 fl (35.1-43.9); Red Blood Count 3.29 M/mm3 (4.2-5.4); White Blood Count 2.7 K/mm3 (4.4-11.0)
[2020-08-24 05:41] LABS: Differential Indicated SCAN CRITERIA MET
[2020-08-24 05:56] LABS: ALB/GLOB Ratio 0.8 RATIO (0.9-2.4); AST(SGOT) 13 U/L (15-37); Alanine Aminotransfer ALT/SGPT 22 U/L (13-56); Albumin, Serum 2.2 g/dL (3.2-5.0); Alkaline Phosphatase 54 U/L (45-117); Anion Gap 6 (5-15); BUN 7 mg/dL (7-18); BUN/Creat Ratio 13.9 RATIO (10-20); Calcium,Total 7.8 mg/dL (8.5-10.1); Chloride 99 mmol/L (98-107); EST Glomerular Filtration Rate 126 mL/min (>60); Est Glom Filt Rate - Afr Amer 152 mL/min (>60); Estimated Creatinine Clearance 36.08 ml/min; Globulin 2.9 g/dL (2.2-4.2); Glucose 118 mg/dL (74-106); Potassium 2.9 mmol/L (3.5-5.1); Protein, Total 5.1 g/dL (6.4-8.2); Sodium Level 134 mmol/L (136-145)
--- NOTE | 2020-08-24 06:27 | CON.PCM_ITS ---
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 Subjective Chief Complaint: Radiation esophagitis Past Medical History: Chronic Problems HTN (hypertension) (Chronic) GERD (gastroesophageal reflux disease) (Chronic) COPD (chronic obstructive pulmonary disease) (Chronic) Constipation (Chronic) Depression (Chronic) Past Medical/Surgical History: Past Medical History - Most Recent Inpatient Visit Past Medical History Start: 08/21/20 12:22 Text: Status: Complete Freq: ONCE Protocol: Document 08/21/20 13:12 JS (Rec: 08/21/20 13:18 JS [id number]) BMI Required to complete PMH What is Patient's BMI 25.3 Neurologic Medical History Hx Stroke/TIA No Hx Dementia/Alzheimer's No Hx Parkinson's Disease No Hx Seizures No Hx Multiple Sclerosis No Hx Migraines No Cardiac Medical History VTE Present on Admission No Hx of Deep Vein Thrombosis/VTE/PE Yes: PE/DVTs 2020 Hx Hypertension Yes Hx Chest Pain/Angina No Hx Heart Attack No Hx Cardiac Surgery/Stents/Etc. No Hx Heart Failure No Hx Pacemaker/AICD No Hx Irregular Heartbeat and/or Afib Yes Hx Anticoagulant Therapy Yes: Lovenox Query Text:(Coumadin, Aspirin, Plavix, Xarelto, etc.) Hx Pain in Legs when Walking/Leg Cramps No Respiratory Medical History Hx COPD No Hx Emphysema No Hx Smoking Yes Smoking Status Former smoker Hx Smoking Cessation Date 09/01/88 Hx Smoking Cessation Counseling No Hx Smoking Exposure No Hx Tobacco Use in last 12 months No Hx of Pipe Smoking No Hx of Cigar Smoking No Hx Sleep Apnea No Do you snore loudly (louder than talking No or can be heard through closed doors)? Do you often feel tired/ fatigued/ Yes sleepy during daytime? Has anyone observed you stop breathing No during sleep? STOP Results Positive GI Medical History Hx Ulcer No Hx Hepatitis Yes: 50 years ago, doesnt know type Hx Cirrhosis No Hx GI Bleed No Hx Unplanned Weight Loss Yes Genitourinary Medical History Indwelling Catheter in Place on Arrival/ No Admission Hx Renal Disease No Hx Dialysis No Musculoskeletal History Hx Arthritis No Hx Rheumatoid Arthritis No Endocrine Medical History Hx Diabetes No Hx Thyroid Disease No Hematologic Medical History Hx of Blood Transfusion No Hx of Transfusion in last 3 Months No Ever experience any problems with No transfusion(s)? Hx of Preganancy in last 3 Months N/A Nurse Filling Out Transfusion & JSEE Questions: Date: 08/21/20 Time: 13:16 Psycho/Social Medical History Hx Depression No Hx Anxiety Yes Hx Behavior Disorder No Hx Alcohol Use No Hx Substance Use No Other Medical History Hx Blood Disorders No Hx Anemia Yes Hx Cancer Yes Hx Drug Resistant Organism No Wound/Pressure Injury Present on Arrival No /Admission Query Text:If yes, chart assessment in Shift/Clinical Findings Central Line/PICC/VAD Present on Arrival No /Admission Antibiotics within last 7 days? No Risk for Readmission Number of Risk Factors 5 At Risk for Readmission Patient is At Risk For Readmission Patient is eligible for Call Back Y - Social History Smoking Status: Former smoker Alcohol: None Drugs: None Allergies/Adverse Reactions: Allergy/AdvReac Type Severity Reaction Status Date / Time codeine AdvReac Abd Verified 08/21/20 09:10 cramps/diarrhea Vital Signs Temperature 97.5 F L 08/24/20 05:04 Temperature Source Temporal 08/24/20 05:04 Pulse Rate 92 08/24/20 05:20 Pulse Strength Normal (2+) 08/23/20 09:38 Respiratory Rate 16 08/24/20 05:04 Respiratory Effort 08/23/20 18:03 Respiratory Depth Normal 08/23/20 18:03 Respiratory Pattern Normal 08/23/20 19:27 Blood Pressure 128/75 H 08/24/20 05:20 Blood Pressure Mean 92 08/24/20 05:20 Blood Pressure Source Monitor 08/24/20 05:20 Blood Pressure Position Semi-Fowlers 08/24/20 05:20 Blood Pressure Location Right Arm 08/24/20 05:20 Pulse Ox 97 08/24/20 05:04 Oxygen Delivery Method Room Air 08/24/20 05:04 Oxygen Flow Rate (L/min) 2 08/23/20 23:33 Fraction of Inspired Oxygen (FIO2) 94 08/22/20 07:51 Laboratory Data: Microbiology 08/21/20 11:57 Blood Culture - Preliminary Blood Culture (Wb) - Finger No growth in 48 hours. 08/21/20 11:30 Blood Culture - Preliminary Blood Culture (Wb) - Left Wrist No growth in 48 hours. 08/21/20 11:15 Urine Culture - Final Urine, Random Klebsiella pneumoniae sp pneum 08/21/20 11:15 Legionella Antigen - Final Urine, Clean Catch Streptococcus pneumoniae Antigen (M - Final 08/21/20 09:40 SARS-CoV-2 Antigen (Rapid) - Final Mucosa - Nose Laboratory Tests 08/24/20 08/24/20 08/23/20 Range/Units 05:22 05:22 05:35 WBC 2.7 L 2.7 L (4.4-11.0) K/mm3 RBC 3.29 L 3.25 L (4.2-5.4) M/mm3 Hgb 9.6 L 9.3 L (12.0-15.0) g/dL Hct 28.1 L 27.7 L (37-47) % MCV 85.4 85.2 (81-99) fL MCH 29.2 28.6 (27.0-32.0) pg MCHC 34.2 33.6 (32-36) g/dL RDW Std Deviation 52.7 H 52.6 H (35.1-43.9) fl RDW Coeff of Rashid 17.2 H 17.2 H (11.6-14.6) % Plt Count 101 L 83 L (150-450) K/mm3 MPV 9.4 9.9 (6.2-12.0) fl Immature Gran % (Auto) 1.100 H 1.500 H (0.0-0.9) % Neut % (Auto) 70.8 H 69.7 (47-70) % Lymph % (Auto) 20.7 21.8 (19-41) % [place] % (Auto) 7.4 6.6 (0-10) % Eos % (Auto) 0.0 0.0 (0-5) % Baso % (Auto) 0.0 0.4 (0-1) % Absolute Neuts (auto) 1.9 L 1.9 L (2.0-7.7) X10^3/uL Absolute Lymphs (auto) 0.56 L 0.59 L (0.83-4.51) X10^3/uL Nucleated RBC % 0 0 (0-5) % Differential Comment SCANNED Diff Path Review May foll Reviewed Anisocytosis 1+ Microcytosis 1+ Sodium 134 L (136-145) mmol/L Potassium 2.9 L (3.5-5.1) mmol/L Chloride 99 (98-107) mmol/L Carbon Dioxide 29.0 (21.0-32.0) mmol/L Anion Gap 6 (5-15) BUN 7 (7-18) mg/dL Creatinine 0.50 L (0.55-1.02) mg/dL Estim Creat Clear Calc 36.08 ml/min Est GFR (MDRD) Af Amer 152 (>60) mL/min Est GFR (MDRD) Non-Af 126 (>60) mL/min BUN/Creatinine Ratio 13.9 (10-20) RATIO Glucose 118 H (74-106) mg/dL Calcium 7.8 L (8.5-10.1) mg/dL Total Bilirubin 1.00 (0.20-1.00) mg/dL AST 13 L (15-37) U/L ALT 22 (13-56) U/L Alkaline Phosphatase 54 (45-117) U/L Total Protein 5.1 L (6.4-8.2) g/dL Albumin 2.2 L (3.2-5.0) g/dL Globulin 2.9 (2.2-4.2) g/dL Albumin/Globulin Ratio 0.8 L (0.9-2.4) RATIO Diagnostic Data: Diagnostic Data Chest X-Ray 08/21/20 09:55 IMPRESSION: Infiltration in the left lower lobe with blunting of the left costophrenic angle. Mild increased markings at the right lung base. Electronically Signed: Сергей Samanta, at 10:10 EST , Service support , Chest CT 08/21/20 13:04 IMPRESSION: Ill-defined subpleural groundglass opacities are seen more prominent in the lung bases , may represent atypical pneumonia or viral pneumonia (COVID-19 ?). There is a soft tissue mass in the right lower lobe measures 5.3 x 4.4 cm consistent with neoplastic process. There is an infracarinal mediastinal mass encasing the left inferior pulmonary artery measuring approximately 8 x 6 x 4.4 cm consistent with metastatic lymphadenopathy. There is small left pleural effusion. There is no evidence of pulmonary embolus. Electronically Signed: Patricia Olivier, at 4:11 EST Tel , Service support , Renal Ultrasound 08/21/20 13:04 IMPRESSION: Intraluminal irregular nodule in the urinary bladder possibly related to debris or small blood clots. Bilateral renal calculi, right more than left. No hydronephrosis. Electronically Signed: Ole Michael, at 23:54 EST Tel [phone], Service support , Assessment and Plan 1) Radiation esophagitis. Assessment: -She has completed all but last 3 fractions radiation. -Had extrinsic esophageal compression from advanced left hilar/mediastinal tumor involvement, but that improved after starting radiation. Plan: -Continue PPI. -Continue empiric Nystatin S&S. -Add BMX. -Corpack if not able to adequately maintain nutrition in the next 1-2 days with topical BMX. 2)Stage IIIB NSCLC. Assessment: -Had significant left mainstem involvement at presentation. -s/p bronchoscopy with laser ablation. -Further improvement with radiation. -Right adrenal gland lesion present on original staging PET with low SUV suggestive of benign adenoma. Plan: -Will be undergoing consolidative immunotherapy. -Already scheduled for outpatient CT chest and follow up with me in about 3 weeks. -Plan discussed with patient and daughter. Medications: Prescriptions This Visit Medication Instructions Recorded Albuterol Inhaler [Ventolin Hfa 1 - 2 puff INHALATION Q4H PRN PRN 08/21/20 (SP)] Atenolol [Tenormin] 50 mg PO DAILY 08/21/20 Dexamethasone [Decadron] 2 mg PO QODAY 08/21/20 Diltiazem HCl [Cardizem] 120 mg PO DAILY 08/21/20 Enoxaparin Sodium [Lovenox] 40 mg SQ DAILY 08/21/20 Ipratropium/Albuterol Respimat 1 puff INHALATION 4X/DAY 08/21/20 [Combivent Respimat Inhal [employer]] Nystatin 5 ml PO 4X/DAY 08/21/20 Ondansetron [Zofran] 8 mg PO Q8H PRN PRN 08/21/20 Polyethylene Glycol 3350 [Miralax] 17 gm PO PRN PRN 08/21/20 Prilosec 40 mg PO DAILY 08/21/20 Senna [Senokot] 1 tab PO PRN PRN 08/21/20 Wellbutrin Sr 150 mg PO DAILY 08/21/20 Primary Care Provider: Dr. Jamil Hooks MD Referring Provider:
[2020-08-24] MEDS: Ipratropium/Albuterol Sulfate 3 ML AMPUL.NEB INHALATION ×3 (06:50→19:06)
[2020-08-24] MEDS: Enoxaparin 40 MG/0.4 ML Syringe SC (08:26)
[2020-08-24] MEDS: dexAMETHasone 2 MG TABLET PO (08:26)
[2020-08-24] MEDS: NYSTATIN 500,000 UNIT/5 ML UDC 500000 UNIT PO ×4 (08:27→21:10)
--- NOTE | 2020-08-24 09:25 | CASEMGMT ---
Addendum entered by Felicia Helm 08/24/20 13:15: Pt is A/Ox4 at this time and answers all questions appropriately at this time. Radha FLANAGAN CM Original Note: This RN CM to room to discuss discharge plan with pt at this time. Pt declines the need for HHC or OP therapy at this time. Pt aware that once home, if she changes her mind to contact PCP, voices understanding. Pt voices no further questions/concerns/needs at this time. Radha FLANAGAN CM
[2020-08-24] MEDS: Potassium Chloride 10mEq/100mL 10 MEQ/100 ML IV.SOLN. 100 MEQ IV BOLUS ×4 (10:07→13:33)
[2020-08-24] MEDS: Atenolol 50 MG Tablet PO (10:16)
[2020-08-24] MEDS: dilTIAZem CD 120 MG Capsule PO (10:16)
[2020-08-24 10:20] LABS: Pathologist Review Reviewed
--- NOTE | 2020-08-24 12:03 | RAD_ITS ---
STUDY: X-RAY - ABDOMEN/PELVIS REASON FOR EXAM: Female, 79 years old. Epigastric pain. TECHNIQUE: Single AP view of the abdomen / pelvis. COMPARISON: None. FINDINGS: Bibasilar pulmonary infiltrates slightly more prominent at the left lung base. There is blunting of the left costophrenic angle. There is an unremarkable bowel gas pattern. The patient is status post cholecystectomy. Normal soft tissue structures. There are diffuse degenerative changes of the visualized lumbar spine. Mild levoscoliosis. RAD/Abdomen Single View (Portable) IMPRESSION: Nonspecific bowel gas pattern. Blunting of the left cosmetic angle with bibasilar infiltrates worse on the left side. Electronically Signed: Сергей [place], at 14:25 EST , Service support ,
[2020-08-24] MEDS: Ondansetron 4 MG/2 ML Vial IV (12:05)
--- NOTE | 2020-08-24 12:11 | NURSING ---
Patient reports severe epigastric pain and vomiting after taking a few bites of lunch. RN noted patient took a drink of water and began complaining of severe epigastric pain. Zofran 4mg IV given. Dr. Camarena aware. Order placed for abdominal x-ray.
[2020-08-24] MEDS: Lactated Ringers 1,000 ML 70 ML IV (13:49)
--- NOTE | 2020-08-24 14:21 | PCM.PN.HOSP ---
Patient Problems: Active and Suspected Problems Lung cancer (Acute) Nausea & vomiting (Acute) PAF (paroxysmal atrial fibrillation) (Acute) Thrush (Acute) Radiation esophagitis (Acute) Reason for Visit: intractable nausea and vomiting. Subjective: Yesterday, tolerated clears. This AM, tolerated full liquids. For lunch, had carrot, mashed potatoes and water, experience significant midsternal pain and vomited. Pain was more severe than previously experienced. Vitals/I&O's: Vital Signs Temp Pulse Resp BP Pulse Ox 36.8 C 88 16 118/70 98 08/24/20 14:00 08/24/20 14:00 08/24/20 14:00 08/24/20 14:00 08/24/20 14:00 Oxygen Flow Rate (L/min) 2 Oxygen Delivery Method Nasal Cannula Weight: 62.7 kg Body Mass Index (BMI) 25.2 Intake and Output for Last 24 Hours 08/22/20 08/23/20 08/24/20 23:59 23:59 23:59 Intake Total 2200.75 / 2200.75 2742.33 / 2742.33 1670 / 1670 Output Total 650 / 650 1750 / 1750 300 / 300 Balance 1550.75 / 1550.75 992.33 / 992.33 1370 / 1370 General: Alert, No apparent distress HEENT: Atraumatic, Normocephalic Oral: Moist Mucosa, No Gingival or Mucosal Lesions/ Ulcerations Neck: No Nodes, Thyroid Normal Size and Texture Lungs: Clear to auscultation, Normal air movement Cardiovascular: Regular rate, Regular Rhythm, Normal S1, Normal S2 Abdomen: Bowel Sounds Present, Soft, Non Tender, Non-Distended Extremities: No edema, No Calf Tenderness Microbiology Past 72 Hours 08/21/20 11:57 Blood Culture (Wb) - Finger Blood Culture - Preliminary No growth in 48 hours. 08/21/20 11:30 Blood Culture (Wb) - Left Wrist Blood Culture - Preliminary No growth in 48 hours. 08/21/20 11:15 Urine, Random Urine Culture - Final Klebsiella pneumoniae sp pneum 08/21/20 11:15 Urine, Clean Catch Legionella Antigen - Final 08/21/20 11:15 Urine, Clean Catch Streptococcus pneumoniae Antigen (M - Final 08/21/20 09:40 Mucosa - Nose SARS-CoV-2 Antigen (Rapid) - Final Laboratory Results 08/23/20 05:35: Diff Path Review Reviewed 08/24/20 05:22: WBC 2.7 L, RBC 3.29 L, Hgb 9.6 L, Hct 28.1 L, MCV 85.4, MCH 29.2, MCHC 34.2, RDW Std Deviation 52.7 H, RDW Coeff of Rashid 17.2 H, Plt Count 101 L, MPV 9.4, Immature Gran % (Auto) 1.100 H, Neut % (Auto) 70.8 H, Lymph % (Auto) 20.7, [place] % (Auto) 7.4, Eos % (Auto) 0.0, Baso % (Auto) 0.0, Absolute Neuts (auto) 1.9 L, Absolute Lymphs (auto) 0.56 L, Nucleated RBC % 0, Diff Path Review Reviewed 08/24/20 05:22: Sodium 134 L, Potassium 2.9 L, Chloride 99, Carbon Dioxide 29.0, Anion Gap 6, BUN 7, Creatinine 0.50 L, Estim Creat Clear Calc 36.08, Est GFR (MDRD) Af Amer 152, Est GFR (MDRD) Non-Af 126, BUN/Creatinine Ratio 13.9, Glucose 118 H, Calcium 7.8 L, Total Bilirubin 1.00, AST 13 L, ALT 22, Alkaline Phosphatase 54, Total Protein 5.1 L, Albumin 2.2 L, Globulin 2.9, Albumin/Globulin Ratio 0.8 L Current Medications Acetaminophen (Acetaminophen 650 Mg Suppository) 650 mg RECTAL Q4H PRN PRN PRN Reason: Pain Score 1-10/Temp > 100.7 F Albuterol Sulfate (Albuterol 2.5 Mg/3 Ml Vial.Neb.) 2.5 mg INHALATION Q2H PRN PRN PRN Reason: SOB/Wheezing Albuterol/Ipratropium (Ipratropium/Albuterol Sulfate 3 Ml Ampul.Neb) 3 ml INHALATION Q6HWA.RT [facility] Last Admin: 08/24/20 06:50 Dose: 3 ml Documented by: Atenolol (Atenolol 50 Mg Tablet) 50 mg PO DAILY [facility] Last Admin: 08/24/20 10:16 Dose: 50 mg Documented by: Dexamethasone (Dexamethasone 2 Mg Tablet) 2 mg PO QODAY [facility] Last Admin: 12/24/20 08:26 Dose: 2 mg Documented by: Diltiazem HCl (Diltiazem Cd 120 Mg Capsule) 120 mg PO DAILY [facility] Last Admin: 08/24/20 10:16 Dose: 120 mg Documented by: Enoxaparin Sodium (Enoxaparin 40 Mg/0.4 Ml Syringe) 40 mg SC DAILY [facility] Last Admin: 08/24/20 08:26 Dose: 40 mg Documented by: Ceftriaxone Sodium (Rocephin) 1 gm in 50 mls @ 100 mls/hr IV Q24 [facility] Stop: 08/29/20 10:01 Last Infusion: 08/23/20 09:56 Dose: Infused Documented by: Lactated Ringer's () 1,000 mls @ 70 mls/hr IV .[id number] [facility] Last Admin: 08/24/20 13:49 Dose: 70 mls/hr Documented by: Pantoprazole Sodium 40 mg/ (Sodium Chloride) 110 mls @ 330 mls/hr IV Q24 [facility] Last Infusion: 08/23/20 09:13 Dose: Infused Documented by: Sodium Chloride () 250 mls @ 15 mls/hr IV .[id number] PRN PRN Reason: Saline Flush Last Infusion: 08/23/20 10:53 Dose: 0 mls/hr Documented by: Sodium Chloride () 250 mls @ 15 mls/hr IV .[id number] PRN PRN Reason: Additional IVPB Infusion Lidocaine/Diphenhydr/Alum/Mg/Simeth (Bmx Liquid 180 Ml) 10 ml PO Q4H [facility] Last Admin: 08/24/20 13:53 Dose: 10 ml Documented by: Metoprolol Tartrate (Metoprolol Tartrate 5 Mg/5 Ml Vial) 5 mg IV Q6H PRN PRN PRN Reason: HR greater than 130 Morphine Sulfate (Morphine 2 Mg/Ml Syringe) 2 mg IV Q3H PRN PRN PRN Reason: Pain Score 6-10 Nystatin (Nystatin 500,000 Unit/5 Ml Udc) 500,000 unit PO 4X/DAY [facility] Last Admin: 08/24/20 13:53 Dose: 500,000 unit Documented by: Ondansetron HCl (Ondansetron 4 Mg/2 Ml Vial) 4 mg IV Q8H PRN PRN PRN Reason: NAUSEA/VOMITING Last Admin: 08/24/20 12:05 Dose: 4 mg Documented by: Polyethylene Glycol (Polyethylene Glycol 3350 17 Gm Packet) 17 gm PO PRN PRN PRN Reason: Constipation Sodium Chloride (0.9% Saline Lock 10 Ml Syringe) 10 - 40 ml IV UD PRN PRN Reason: SALINE FLUSH Last Admin: 08/24/20 12:06 Dose: 10 ml Documented by: STROKE Vital Signs/Narrative: Vital Signs Temp Pulse Resp BP Pulse Ox 08/24/20 14:00 36.8 C 88 16 118/70 98 08/24/20 11:20 109 H Medical Necessity - Tobacco Use Smoking Status: Former smoker Assessment/Plan All Active Problems Lung cancer (Acute) Nausea & vomiting (Acute) PAF (paroxysmal atrial fibrillation) (Acute) Thrush (Acute) Radiation esophagitis (Acute) 1. dysphagia DW Dr. Cosme, he is concerned for radiation esophagitis and recommended scheduled BMX. If refractory, may consider temporary [place] advance diet to fulls as she appears to be tolerating clears. 08/23: tolerating clears 08/24: tolerated full liquids, however after advancing to soft diet she has severe epigastric pain and emesis. AXR negative for SBO Check Barium swallow, which cannot be done until 08/28. If patient improves prior to that and can tolerate solids, then perhaps that test could be dc'd Based on results of barium swallow, may need to consider alternate forms of nutrition. 2. pAF was tachycardic switch back to PO w IV metop PRN 3. 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 Klebsiella UTI R to amp/unasyn/nitro continue CTX for now, can change to PO cipro when tolerates PO and treat through the 5. 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 Suspected radiation pneumonitis follow up imaging as outpt doubt pneumonia, so I will dc azithromycin 7. VTE prophylaxis: LMWH DW patient's dtr at bedside. Greater than 35 minutes of which greater than 50% of time was reviewing data, discussing the dysphagia intractable nausea and vomiting with patient and her daughter today at bedside and what further studies would need to be performed. Inpatient E&M: [id number] [facility] Hosp L3
[2020-08-24] MEDS: Ceftriaxone 1 GM/50 ML BAG IV (16:49)
[2020-08-25] VITALS (12 sets, daily range): BP systolic 101–130; BP diastolic 64–78; PULSE 71–108; RESP 18–22; TEMP 36.5–36.9; O2SAT 94–97
[2020-08-25] MEDS: Lactated Ringers 1,000 ML 70 ML IV ×2 (03:43→18:51)
[2020-08-25 06:43] LABS: Absolute Lymphocyte Count 0.96 X10^3/uL (0.83-4.51); Absolute Neutrophil Count 1.9 X10^3/uL (2.0-7.7); Basophil# 0.01 X10^3/uL; Basophil% 0.3 % (0-1); Hematocrit 28.4 % (37-47); Hemoglobin 9.8 g/dL (12.0-15.0); Lymphocyte # 0.96 X10^3/ul (4.0); Lymphocyte % 30.3 % (19-41); Mean Corp Hgb Conc 34.5 g/dL (32-36); Mean Corpuscular Hgb 29.2 pg (27.0-32.0); Mean Corpuscular Volume 84.5 fL (81-99); Mean Platelet Vol. 10.1 fl (6.2-12.0); Monocyte# 0.25 X10^3/uL; Monocyte% 7.9 % (0-10); NRBC Flagged by Analyzer 0 % (0-5); Neutrophil # 1.91 X10^3/uL (2.7-7.7); Neutrophil % 60.2 % (47-70); POSITIVE COUNT YES; Platelet Count 93 K/mm3 (150-450); RBC Distribution Width CV 17.5 % (11.6-14.6); RBC Distribution Width SD 52.3 fl (35.1-43.9); Red Blood Count 3.36 M/mm3 (4.2-5.4); White Blood Count 3.2 K/mm3 (4.4-11.0)
[2020-08-25] MEDS: BMX LIQUID 180 ML 10 ML PO ×5 (06:46→20:47)
[2020-08-25] MEDS: Ipratropium/Albuterol Sulfate 3 ML AMPUL.NEB INHALATION ×2 (06:59→18:25)
[2020-08-25 07:03] LABS: Anion Gap 5 (5-15); BUN 7 mg/dL (7-18); BUN/Creat Ratio 12.9 RATIO (10-20); Calcium,Total 8.1 mg/dL (8.5-10.1); Chloride 102 mmol/L (98-107); Creatinine, Serum 0.54 mg/dL (0.55-1.02); EST Glomerular Filtration Rate 115 mL/min (>60); Est Glom Filt Rate - Afr Amer 139 mL/min (>60); Estimated Creatinine Clearance 36.08 ml/min; Glucose 104 mg/dL (74-106); Potassium 3.9 mmol/L (3.5-5.1); Sodium Level 134 mmol/L (136-145)
[2020-08-25] MEDS: dilTIAZem CD 120 MG Capsule PO (08:37)
--- NOTE | 2020-08-25 09:25 | PCM.PN.HOSP ---
Patient Problems: Active and Suspected Problems Lung cancer (Acute) Nausea & vomiting (Acute) PAF (paroxysmal atrial fibrillation) (Acute) Thrush (Acute) Radiation esophagitis (Acute) Reason for Visit: Follow-up for dysphagia. Was admitted for nausea and vomiting. Objective: Heart rate and blood pressure are controlled. No fever. Plan for modified barium swallow on 08/28. Admitted with dysphagia. Patient tolerated clear liquid diet. Physical exam General: Alert, Oriented x3, Cooperative HEENT: Atraumatic, PERRLA, EOMI, Normocephalic Oral: No Gingival or Mucosal Lesions/ Ulcerations Neck: Supple, No JVD, Negative Carotid Bruits Lungs: Air entry diminished in bilateral lung bases. No crepitation/rhonchi Cardiovascular: Regular rate, Regular Rhythm, Normal S1, Normal S2, No murmurs Abdomen: Bowel Sounds Present, Soft, Non Tender, Non-Distended : No renal angle tenderness. No suprapubic tenderness. Extremities: No edema, Capillary Refill Less than 3 Seconds Skin: No rashes, No breakdown Musculoskeletal: No Tenderness to Palpation of Joints or Extremities Neurological: Cranial nerves II-XII grossly intact, Deep Tendon Reflexes 2+/4 and Symmetrical, Neuro grossly intact Psych/Mental Status: Normal Affect, Appropriate. Vitals/I&O's: Vital Signs Temp Pulse Resp BP Pulse Ox 98.4 F 100 18 101/70 95 08/25/20 08:35 08/25/20 08:35 08/25/20 08:35 08/25/20 08:35 08/25/20 08:45 Oxygen Flow Rate (L/min) 2 Oxygen Delivery Method Room Air Weight: 138 lb 3.677 oz Body Mass Index (BMI) 25.2 Intake and Output for Last 24 Hours 08/23/20 08/24/20 08/25/20 23:59 23:59 23:59 Intake Total 2742.33 / 2742.33 2204.67 / 2204.67 697.67 / 697.67 Output Total 1750 / 1750 500 / 500 500 / 500 Balance 992.33 / 992.33 1704.67 / 1704.67 197.67 / 197.67 Microbiology Past 72 Hours 08/21/20 11:57 Blood Culture (Wb) - Finger Blood Culture - Preliminary No growth in 48 hours. 08/21/20 11:30 Blood Culture (Wb) - Left Wrist Blood Culture - Preliminary No growth in 48 hours. 08/21/20 11:15 Urine, Random Urine Culture - Final Klebsiella pneumoniae sp pneum Laboratory Results 08/24/20 05:22: Diff Path Review Reviewed 08/25/20 06:25: WBC 3.2 L, RBC 3.36 L, Hgb 9.8 L, Hct 28.4 L, MCV 84.5, MCH 29.2, MCHC 34.5, RDW Std Deviation 52.3 H, RDW Coeff of Rashid 17.5 H, Plt Count 93 L, MPV 10.1, Immature Gran % (Auto) 1.300 H, Neut % (Auto) 60.2, Lymph % (Auto) 30.3, [place] % (Auto) 7.9, Eos % (Auto) 0.0, Baso % (Auto) 0.3, Absolute Neuts (auto) 1.9 L, Absolute Lymphs (auto) 0.96, Nucleated RBC % 0 08/25/20 06:25: Sodium 134 L, Potassium 3.9, Chloride 102, Carbon Dioxide 27.0, Anion Gap 5, BUN 7, Creatinine 0.54 L, Estim Creat Clear Calc 36.08, Est GFR (MDRD) Af Amer 139, Est GFR (MDRD) Non-Af 115, BUN/Creatinine Ratio 12.9, Glucose 104, Calcium 8.1 L Current Medications Acetaminophen (Acetaminophen 650 Mg Suppository) 650 mg RECTAL Q4H PRN PRN PRN Reason: Pain Score 1-10/Temp > 100.7 F Albuterol Sulfate (Albuterol 2.5 Mg/3 Ml Vial.Neb.) 2.5 mg INHALATION Q2H PRN PRN PRN Reason: SOB/Wheezing Albuterol/Ipratropium (Ipratropium/Albuterol Sulfate 3 Ml Ampul.Neb) 3 ml INHALATION Q6HWA.RT [facility] Last Admin: 08/25/20 06:59 Dose: 3 ml Documented by: Atenolol (Atenolol 50 Mg Tablet) 50 mg PO DAILY [facility] Last Admin: 08/24/20 10:16 Dose: 50 mg Documented by: Dexamethasone (Dexamethasone 2 Mg Tablet) 2 mg PO QODAY [facility] Last Admin: 08/24/20 08:26 Dose: 2 mg Documented by: Diltiazem HCl (Diltiazem Cd 120 Mg Capsule) 120 mg PO DAILY [facility] Last Admin: 08/25/20 08:37 Dose: 120 mg Documented by: Enoxaparin Sodium (Enoxaparin 40 Mg/0.4 Ml Syringe) 40 mg SC DAILY [facility] Last Admin: 08/24/20 08:26 Dose: 40 mg Documented by: Ceftriaxone Sodium (Rocephin) 1 gm in 50 mls @ 100 mls/hr IV Q24 [facility] Stop: 08/29/20 10:01 Last Infusion: 08/24/20 17:20 Dose: Infused Documented by: Lactated Ringer's () 1,000 mls @ 70 mls/hr IV .[id number] [facility] Last Admin: 08/25/20 03:43 Dose: 70 mls/hr Documented by: Pantoprazole Sodium 40 mg/ (Sodium Chloride) 110 mls @ 330 mls/hr IV Q24 [facility] Last Infusion: 08/24/20 16:40 Dose: Infused Documented by: Sodium Chloride () 250 mls @ 15 mls/hr IV .[id number] PRN PRN Reason: Saline Flush Last Infusion: 08/23/20 10:53 Dose: 0 mls/hr Documented by: Sodium Chloride () 250 mls @ 15 mls/hr IV .[id number] PRN PRN Reason: Additional IVPB Infusion Lidocaine/Diphenhydr/Alum/Mg/Simeth (Bmx Liquid 180 Ml) 10 ml PO Q4H [facility] Last Admin: 08/25/20 06:46 Dose: 10 ml Documented by: Metoprolol Tartrate (Metoprolol Tartrate 5 Mg/5 Ml Vial) 5 mg IV Q6H PRN PRN PRN Reason: HR greater than 130 Morphine Sulfate (Morphine 2 Mg/Ml Syringe) 2 mg IV Q3H PRN PRN PRN Reason: Pain Score 6-10 Nystatin (Nystatin 500,000 Unit/5 Ml Udc) 500,000 unit PO 4X/DAY [facility] Last Admin: 08/24/20 21:10 Dose: 500,000 unit Documented by: Ondansetron HCl (Ondansetron 4 Mg/2 Ml Vial) 4 mg IV Q8H PRN PRN PRN Reason: NAUSEA/VOMITING Last Admin: 08/24/20 12:05 Dose: 4 mg Documented by: Polyethylene Glycol (Polyethylene Glycol 3350 17 Gm Packet) 17 gm PO PRN PRN PRN Reason: Constipation Sodium Chloride (0.9% Saline Lock 10 Ml Syringe) 10 - 40 ml IV UD PRN PRN Reason: SALINE FLUSH Last Admin: 08/24/20 12:06 Dose: 10 ml Documented by: STROKE Vital Signs/Narrative: Vital Signs Temp Pulse Resp BP Pulse Ox 08/25/20 08:45 95 08/25/20 08:35 98.4 F 100 18 101/70 95 08/25/20 07:28 98 20 H 08/25/20 07:00 108 H Medical Necessity - Tobacco Use Smoking Status: Former smoker Assessment/Plan All Active Problems Lung cancer (Acute) Nausea & vomiting (Acute) PAF (paroxysmal atrial fibrillation) (Acute) Thrush (Acute) Radiation esophagitis (Acute) 1. dysphagia: Patient states her food gets stuck in the chest. My colleague discussed with Dr. Cosme and is concerned for radiation esophagitis and recommended BMX and modified barium swallow. Diet advanced to full liquid. Modified barium swallow is scheduled on 08/28. 2. Paroxysmal A. fib: Heart rate is mostly controlled 70 to 90/min with intermittent in 100s. On metoprolol 5 mg IV as needed and diltiazem CD 120 mg daily. 3. 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 Klebsiella UTI Resistant to amp/unasyn/nitro continue CTX for now, can change to PO cipro when tolerates PO and treat through the 5. 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 Suspected radiation pneumonitis follow up imaging as outpt. Pneumonia was ruled out therefore azithromycin were discontinued. 7. VTE prophylaxis: LMWH DW patient's dtr at bedside. Inpatient E&M: [id number] Subs Hosp L2
[2020-08-25] MEDS: 0.9% Saline Lock 10 ML Syringe IV (09:39)
[2020-08-25] MEDS: Enoxaparin 40 MG/0.4 ML Syringe SC (09:39)
[2020-08-25] MEDS: NYSTATIN 500,000 UNIT/5 ML UDC 500000 UNIT PO ×4 (09:39→20:47)
[2020-08-25] MEDS: Ceftriaxone 1 GM/50 ML BAG IV (10:27)
[2020-08-25] MEDS: Atenolol 50 MG Tablet PO (10:29)
[2020-08-25 18:57] LABS: Magnesium 1.7 mg/dL (1.6-2.6)
[2020-08-25] MEDS: Metoprolol Tartrate 25 MG Tablet PO (20:47)
[2020-08-26] VITALS (7 sets, daily range): BP systolic 107–124; BP diastolic 75–80; PULSE 78–108; RESP 16–20; TEMP 36.5–36.6; O2SAT 93–95
[2020-08-26] MEDS: Ipratropium/Albuterol Sulfate 3 ML AMPUL.NEB INHALATION ×2 (00:35→07:31)
[2020-08-26] MEDS: BMX LIQUID 180 ML 10 ML PO ×2 (06:35→10:45)
[2020-08-26] MEDS: Lactated Ringers 1,000 ML 70 ML IV (08:37)
[2020-08-26] MEDS: Metoprolol Tartrate 25 MG Tablet PO (10:43)
[2020-08-26] MEDS: dilTIAZem CD 120 MG Capsule PO (10:45)
[2020-08-26] MEDS: dexAMETHasone 2 MG TABLET PO (10:45)
[2020-08-26] MEDS: Enoxaparin 40 MG/0.4 ML Syringe SC (10:45)
[2020-08-26] MEDS: NYSTATIN 500,000 UNIT/5 ML UDC 500000 UNIT PO (10:45)
[2020-08-26] MEDS: Ceftriaxone 1 GM/50 ML BAG IV (10:54)
--- NOTE | 2020-08-26 11:17 | DCINST_ITS ---
- Discharge Diagnoses Current Active Problems: Current Active and Chronic Problems Lung cancer (Acute) HTN (hypertension) (Chronic) Nausea & vomiting (Acute) GERD (gastroesophageal reflux disease) (Chronic) COPD (chronic obstructive pulmonary disease) (Chronic) PAF (paroxysmal atrial fibrillation) (Acute) Constipation (Chronic) Depression (Chronic) Thrush (Acute) Radiation esophagitis (Acute) You will use the following diet at home:: Full liquid - Full liquid diet until patient has modified barium swallow and instruction by speech therapist Your liquids should be the consistency of: Regular/Thin Discharge Activity: May Not Drive Weight Bearing Status: Weight bearing as tolerated Call your doctor if you observe: Fever of 101 or Higher, Coldness, Increased Pain, Numbness or Tingling, Change in Color, Inability to urinate, Inability to have a bowel movement, Using more than one pad per hour, Shortness of breath, Fainting spells, Swelling in the ankles, Chest pain, Prolonged hiccoughing, Increased palpitations (irregular heartbeat) Additional Instructions: Follow-up with a speech therapist. Allergies/Adverse Reactions: Allergies codeine Adverse Reaction (Verified 08/21/20 09:10) Abd cramps/diarrhea Medications to take at Discharge Albuterol Inhaler [Ventolin Hfa (SP)] 1 - 2 puff INHALATION Q4H PRN PRN 08/21/20 Atenolol [Tenormin] 50 mg PO DAILY 08/21/20 Dexamethasone [Decadron] 2 mg PO QODAY 08/21/20 Diltiazem HCl [Cardizem] 120 mg PO DAILY 08/21/20 Enoxaparin Sodium [Lovenox] 40 mg SQ DAILY 08/21/20 Ipratropium/Albuterol Respimat [Combivent Respimat Inhal [place]] 1 puff INHALATION 4X/DAY 08/21/20 Nystatin 5 ml PO 4X/DAY 08/21/20 Ondansetron [Zofran] 8 mg PO Q8H PRN PRN 08/21/20 Polyethylene Glycol 3350 [Miralax] 17 gm PO PRN PRN 08/21/20 Prilosec 40 mg PO DAILY 08/21/20 Senna [Senokot] 1 tab PO PRN PRN 08/21/20 Wellbutrin Sr 150 mg PO DAILY 08/21/20 Bmx Liquid 10 ml PO Q4H 10 Days #600 ml 08/26/20 Ciprofloxacin [Cipro] 500 mg PO BID 1 Days #2 tab 08/26/20 The following prescriptions were given: Bmx Liquid 10 ml PO Q4H 10 Days #600 ml Transmission Status: Pending to [id number] Ciprofloxacin [Cipro] 500 mg PO BID 1 Days #2 tab Transmission Status: Pending to [id number] Orders to be completed after discharge: Upper GI w/BA Swallow [RAD] Time Frame: 08/29/20, Facility: [facility], Location: [facility] Primary Care Physician: Jamil Hooks MD [Primary Care Provider] - Please follow up with your Primary Care Physician in: In 1 to 2 weeks Test Results: Test results from this visit will be discussed in further detail at your follow- up appointment, if applicable. Please Follow Up With: Melecio Denny MD When: In 2 weeks after modified barium swallow
--- NOTE | 2020-08-26 11:21 | PCM.DC.SUM ---
Discharge Date and Diagnosis - Problem List Patient Problems: Active and Suspected Problems Lung cancer (Acute) Nausea & vomiting (Acute) PAF (paroxysmal atrial fibrillation) (Acute) Thrush (Acute) Radiation esophagitis (Acute) Date of Admission: 08/21/20 Date of Discharge: 08/26/20 - Primary Discharge Diagnosis Acute Problems: Active Problems Lung cancer (Acute) Nausea & vomiting (Acute) PAF (paroxysmal atrial fibrillation) (Acute) Thrush (Acute) Radiation esophagitis (Acute) - Secondary Discharge Diagnosis Chronic Problems: Chronic Problems HTN (hypertension) (Chronic) GERD (gastroesophageal reflux disease) (Chronic) COPD (chronic obstructive pulmonary disease) (Chronic) Constipation (Chronic) Depression (Chronic) Hospital Course and Treatment Summary of Care Provided: The patient is a 79 year old F with history of right mainstem bronchus cancer and had 1 round of chemotherapy and 21 sessions of radiation admitted with intermittent nausea vomiting and swelling. 1. dysphagia: Patient states her food gets stuck in the chest. My colleague discussed with Dr. Cosme and is concerned for radiation esophagitis and recommended BMX and modified barium swallow. Diet advanced to full liquid. Modified barium swallow is scheduled on 08/28. Patient does not want to wait and therefore wants to get it done as an outpatient. Prescription for modified barium swallow and follow-up with his speech therapist given.Follow-up with surgeon Dr. Denny for further opinion regarding dysphagia in case if patient needs EGD 2. Paroxysmal A. fib: Heart rate is mostly controlled 70 to 90/min with intermittent in 100s. On metoprolol 5 mg IV as needed and diltiazem CD 120 mg daily. 3. pancytopenia chronic, likely chemo-induced Hg has drifted down, but no need for transfusion Patient also had mild hyponatremia, sodium is 134 may be possible paraneoplastic effect of lung cancer. 4. Klebsiella UTI Resistant to amp/unasyn/nitro Patient had ceftriaxone since 08/21 therefore had 6 doses. 1 more day of Cipro 500 mg twice daily, prescription sent to the pharmacy 5. 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 Will need further work-up for hyponatremia to rule out SIADH 6. Suspected radiation pneumonitis follow up imaging as outpt. Pneumonia was ruled out therefore azithromycin were discontinued. 7. VTE prophylaxis: LMWH Discharge medication reconciliation done. Discharge follow-up instructions completed. Discharge process discussed with the patient and all questions were answered to patient's satisfaction. Patient discharged to home with a prescription for outpatient modified barium swallow. Total time spent, exact 35 minutes on discharge meds reconciliation, examination, coordination of care with nurses and ancillary staff, review of imaging and blood test and discussion with the patient on follow-up instructions Patient Problems: Active and Suspected Problems Lung cancer (Acute) Nausea & vomiting (Acute) PAF (paroxysmal atrial fibrillation) (Acute) Thrush (Acute) Radiation esophagitis (Acute) Objective: Patient is tired of waiting and wants to go home. She is tolerated full liquid diet. She further diagnosed with lung cancer in Apr 2020 and currently on chemoradiation. Had 21 sessions of radiotherapy. Physical exam General: Alert, Oriented x3, Cooperative HEENT: Atraumatic, PERRLA, EOMI, Normocephalic Oral: No Gingival or Mucosal Lesions/ Ulcerations Neck: Supple, No JVD, Negative Carotid Bruits Lungs: Air entry equal in bilateral lung bases. No crepitation/rhonchi Cardiovascular: Regular rate, Regular Rhythm, Normal S1, Normal S2, No murmurs Abdomen: Bowel Sounds Present, Soft, Non Tender, Non-Distended : No renal angle tenderness. No suprapubic tenderness. Extremities: No edema, Capillary Refill Less than 3 Seconds Skin: No rashes, No breakdown Musculoskeletal: No Tenderness to Palpation of Joints or Extremities Neurological: Cranial nerves II-XII grossly intact, Deep Tendon Reflexes 2+/4 and Symmetrical, Neuro grossly intact Psych/Mental Status: Normal Affect, Appropriate. - Physical Exam Vitals/I&O's: Vital Signs Temp Pulse Resp BP Pulse Ox 97.7 F L 106 H 18 107/80 95 08/26/20 09:15 08/26/20 10:43 08/26/20 09:15 08/26/20 10:43 08/26/20 09:15 Oxygen Flow Rate (L/min) 2 Oxygen Delivery Method Room Air Weight: 138 lb 3.677 oz Body Mass Index (BMI) 25.2 Intake and Output for Last 24 Hours 08/24/20 08/25/20 08/26/20 23:59 23:59 23:59 Intake Total 2204.67 / 2204.67 2282.67 / 2282.67 1631.17 / 1631.17 Output Total 500 / 500 1150 / 1150 400 / 400 Balance 1704.67 / 1704.67 1132.67 / 1132.67 1231.17 / 1231.17 Microbiology Past 72 Hours 08/21/20 11:57 Blood Culture (Wb) - Finger Blood Culture - Preliminary No growth in 48 hours. 08/21/20 11:30 Blood Culture (Wb) - Left Wrist Blood Culture - Preliminary No growth in 48 hours. 08/21/20 11:15 Urine, Random Urine Culture - Final Klebsiella pneumoniae sp pneum Laboratory Results 08/25/20 06:25: Magnesium 1.7 Current Medications Acetaminophen (Acetaminophen 650 Mg Suppository) 650 mg RECTAL Q4H PRN PRN PRN Reason: Pain Score 1-10/Temp > 100.7 F Albuterol Sulfate (Albuterol 2.5 Mg/3 Ml Vial.Neb.) 2.5 mg INHALATION Q2H PRN PRN PRN Reason: SOB/Wheezing Albuterol/Ipratropium (Ipratropium/Albuterol Sulfate 3 Ml Ampul.Neb) 3 ml INHALATION Q6HWA.RT [facility] Last Admin: 08/26/20 07:31 Dose: 3 ml Documented by: Dexamethasone (Dexamethasone 2 Mg Tablet) 2 mg PO QODAY [facility] Last Admin: 08/26/20 10:45 Dose: 2 mg Documented by: Diltiazem HCl (Diltiazem Cd 120 Mg Capsule) 120 mg PO DAILY [facility] Last Admin: 08/26/20 10:45 Dose: 120 mg Documented by: Enoxaparin Sodium (Enoxaparin 40 Mg/0.4 Ml Syringe) 40 mg SC DAILY [facility] Last Admin: 08/26/20 10:45 Dose: 40 mg Documented by: Ceftriaxone Sodium (Rocephin) 1 gm in 50 mls @ 100 mls/hr IV Q24 BRAD Stop: 08/29/20 10:01 Last Admin: 08/26/20 10:54 Dose: 100 mls/hr Documented by: Lactated Ringer's () 1,000 mls @ 70 mls/hr IV .[id number] [facility] Last Infusion: 08/26/20 10:52 Dose: 0 mls/hr Documented by: Pantoprazole Sodium 40 mg/ (Sodium Chloride) 110 mls @ 330 mls/hr IV Q24 [facility] Last Infusion: 08/26/20 11:12 Dose: Infused Documented by: Sodium Chloride () 250 mls @ 15 mls/hr IV .[id number] PRN PRN Reason: Saline Flush Last Infusion: 08/26/20 10:54 Dose: 0 mls/hr Documented by: Sodium Chloride () 250 mls @ 15 mls/hr IV .[id number] PRN PRN Reason: Additional IVPB Infusion Lidocaine/Diphenhydr/Alum/Mg/Simeth (Bmx Liquid 180 Ml) 10 ml PO Q4H [facility] Last Admin: 08/26/20 10:45 Dose: 10 ml Documented by: Metoprolol Tartrate (Metoprolol Tartrate 5 Mg/5 Ml Vial) 5 mg IV Q6H PRN PRN PRN Reason: HR greater than 130 Metoprolol Tartrate (Metoprolol Tartrate 25 Mg Tablet) 25 mg PO BID [facility] Last Admin: 08/26/20 10:43 Dose: 25 mg Documented by: Morphine Sulfate (Morphine 2 Mg/Ml Syringe) 2 mg IV Q3H PRN PRN PRN Reason: Pain Score 6-10 Nystatin (Nystatin 500,000 Unit/5 Ml Udc) 500,000 unit PO 4X/DAY [facility] Last Admin: 08/26/20 10:45 Dose: 500,000 unit Documented by: Ondansetron HCl (Ondansetron 4 Mg/2 Ml Vial) 4 mg IV Q8H PRN PRN PRN Reason: NAUSEA/VOMITING Last Admin: 08/24/20 12:05 Dose: 4 mg Documented by: Polyethylene Glycol (Polyethylene Glycol 3350 17 Gm Packet) 17 gm PO PRN PRN PRN Reason: Constipation Sodium Chloride (0.9% Saline Lock 10 Ml Syringe) 10 - 40 ml IV UD PRN PRN Reason: SALINE FLUSH Last Admin: 08/25/20 09:39 Dose: 10 ml Documented by: Discharge Activity: May Not Drive Weight Bearing Status: Weight bearing as tolerated Call your doctor if you observe: Fever of 101 or Higher, Coldness, Increased Pain, Numbness or Tingling, Change in Color, Inability to urinate, Inability to have a bowel movement, Using more than one pad per hour, Shortness of breath, Fainting spells, Swelling in the ankles, Chest pain, Prolonged hiccoughing, Increased palpitations (irregular heartbeat) Home Medications: Medications to take at Discharge Albuterol Inhaler [Ventolin Hfa] 1 - 2 puff INHALATION Q4H PRN PRN 08/21/20 Atenolol [Tenormin] 50 mg PO DAILY 08/21/20 Dexamethasone [Decadron] 2 mg PO QODAY 08/21/20 Diltiazem HCl [Cardizem] 120 mg PO DAILY 08/21/20 Enoxaparin Sodium [Lovenox] 40 mg SQ DAILY 08/21/20 Ipratropium/Albuterol Respimat [Combivent Respimat Inhal [place]] 1 puff INHALATION 4X/DAY 08/21/20 Nystatin 5 ml PO 4X/DAY 08/21/20 Ondansetron [Zofran] 8 mg PO Q8H PRN PRN 08/21/20 Polyethylene Glycol 3350 [Miralax] 17 gm PO PRN PRN 08/21/20 Prilosec 40 mg PO DAILY 08/21/20 Senna [Senokot] 1 tab PO PRN PRN 08/21/20 Wellbutrin Sr 150 mg PO DAILY 08/21/20 Bmx Liquid 10 ml PO Q4H 10 Days #600 ml 08/26/20 Ciprofloxacin [Cipro] 500 mg PO BID 1 Days #2 tab 08/26/20 Following Prescriptions Were Given to Patient: Bmx Liquid 10 ml PO Q4H 10 Days #600 ml Transmission Status: Received by [id number] Ciprofloxacin [Cipro] 500 mg PO BID 1 Days #2 tab Transmission Status: Received by [facility] Other Amb Orders: Upper GI w/BA Swallow [RAD] Time Frame: 08/29/20, Facility: [facility], Location: [facility] Primary Care Physician: Jamil Hooks MD [Primary Care Provider] - Please follow up with your Primary Care Physician in: In 1 to 2 weeks Please Follow Up With: Melecio Denny MD When: In 2 weeks after modified barium swallow Medical Necessity - Tobacco Use Smoking Status: Former smoker Meaningful Use Info Meaningful Use Diagnoses (Choose all that apply): None applicable Inpatient E&M: [id number] [facility]
== END 2020-08-26 12:56 | disposition home or self-care (01) | DRG 180 ==
LOC: ED 09:44 → PCU 11:19
PROVIDERS: Hospitalist; Admitting Provider Internal Medicine; Emergency Provider Emergency Medicine; PCP Family Medicine; Visit Provider Internal Medicine
DX: C34.02 Malignant neoplasm of left main bronchus (principal); D61.810 Antineoplastic chemotherapy induced pancytopenia; N39.0 Urinary tract infection, site not specified; Z16.11 Resistance to penicillins; E87.1 Hypo-osmolality and hyponatremia; K20.80 Other esophagitis without bleeding; R13.10 Dysphagia, unspecified; I48.0 Paroxysmal atrial fibrillation; B96.1 Klebsiella pneumoniae [K. pneumoniae] as the cause of diseases classified elsewhere; T45.1X5A Adverse effect of antineoplastic and immunosuppressive drugs, initial encounter; B37.9 Candidiasis, unspecified; Y84.2 Radiological procedure and radiotherapy as the cause of abnormal reaction of the patient, or of later complication, without mention of misadventure at the time of the procedure; K21.9 Gastro-esophageal reflux disease without esophagitis; I10 Essential (primary) hypertension; J44.9 Chronic obstructive pulmonary disease, unspecified; F32.9 Major depressive disorder, single episode, unspecified; K59.09 Other constipation; Z87.891 Personal history of nicotine dependence; Z66 Do not resuscitate; Z86.711 Personal history of pulmonary embolism; Z86.718 Personal history of other venous thrombosis and embolism
CPT/HCPCS: 36415; 71045; 71260; 74018; 76770; 80048; 80053; 81001; 83605; 83735; 84100; 84443; 84484; 85025; 87040; 87077; 87086; 87088; 87186; 87426; 87449; 87635; 93005; 94640; 97110; 97116; 97162; 97166; 97530; 97535; 97802; 99251; 99285; J7030; J7040; J7050; J7120; Q9967; A4216; G0463; J2405; U0002

== ENCOUNTER 2020-09-19 14:54 | Inpatient (IN) | payer MEDICARE, OTHER, SELFPAY ==
[2020-08-21 11:25] VITALS: BMI 25.2
[2020-09-19] VITALS (9 sets, daily range): BP systolic 95–132; BP diastolic 71–97; PULSE 80–122; RESP 16–28; TEMP 36.4–36.9; O2SAT 91–97; BMI 23.8; BMI 24.2
--- NOTE | 2020-09-19 15:19 | EKG12_ITS ---
Test Reason : CP Blood Pressure : / mmHG Vent. Rate : 109 BPM Atrial Rate : 104 BPM P-R Int : 000 ms QRS Dur : 092 ms QT Int : 376 ms P-R-T Axes : 000 022 047 degrees QTc Int : [address] & T wave abnormality, consider anterior ischemia Abnormal ECG Confirmed by GUTIERREZ COOK, PRABHU ([id number]), art editor IVONE DURANT ([id number]) on 09/25/2020 12:50:20 PM Referred By: HAM Confirmed By:PRABHU WHITLEY MD
--- NOTE | 2020-09-19 15:21 | ED.VISSUMM ---
- ER Visit Summary Date of Service: 09/19/20 Chief Complaint: Chest pain [] History of Present Illness: The patient is a 79 F [presents to the emergency department with complaint of chest pain that has been worse over the last 2 days. Patient states that she has had chest pain for quite some time but this time is just not going away. Patient states that she has a history of lung cancer in the past she is attributed to that. Patient is currently anticoagulated for atrial fibrillation and takes Lovenox injections daily. Patient also states that she has been having upper abdomen pain and pain when she tries to eat or drink and she is been vomiting. Patient states she is been coughing and at times brings up some sputum. She denies any fever. She denies any COVID-19 exposures. States the pain in her chest is sharp and rates it a 9 out of 10.] Physical Examination: [HEENT-PERRLA, EOMI. Cranial nerves II through XII grossly intact. TMs clear. Mucous membranes moist. No adenopathy. Cardiovascular-irregularly irregular with a 2 out of 6 stock ejection murmur noted. Patient does have tenderness palpation over the anterior chest wall that seems to reproduce her pain. Lungs-clear to auscultation, chest wall stable without crepitus or subcu emphysema Abdomen-normoactive bowel sounds, soft. Patient has tenderness palpation over the epigastric region with some guarding. There is no rebound, rigidity, or cranial signs. Extremities-intact ?4, normal range of motion, normal pulses, atraumatic] Test Results: [EKG obtained arrival shows atrial fibrillation with nonspecific ST changes noted. CBC with differential showing a 6.1, hemoglobin 10.7, hematocrit 32, platelets 81. Chemistries unremarkable. Lactate was 1.6. Troponin is less than 0.015. Chest x-ray obtained 1 view interpreted by myself as bilateral groundglass-like infiltrates with suspected small effusion on the left. Radiology in agreement. Given the fact the patient had continued pain that radiated through to her back she had a CTA of the chest that was read by radiology as no evidence of PE or dissection. Patient was noted to have bilateral groundglass infiltrates consistent with COVID-19. Patient also incidentally noted to have abdominal aortic aneurysm noted.] Initial rapid Covid 19 test was negative. PCR COVID-19 test ordered and pending. Emergency Department Course and Treatment: [IV line established on arrival. Blood cultures ordered. Patient was started on Levaquin empirically 750 mg IV.] Patient was medicated with morphine and Zofran and continued to have significant pain was given a second dose of morphine 4 mg IV. Treatment Plan: [Case discussed with hospitalist who will evaluate patient for admission.] Disposition: [Admit] Impression: [Intractable chest pain Bilateral pneumonia [id number]] This note was generated with [employer] dictation software. It may contain incorrect words, spelling, and punctuation that were not noted in review of the chart prior to signing ED Disposition - Plan for ED Patient: Referrals: Jamil Hooks MD [Primary Care Provider] -
[2020-09-19] MEDS: 0.9% Normal Saline 1,000 ML 150 ML IV (15:58)
[2020-09-19] MEDS: Ondansetron 4 MG/2 ML Vial IV (15:58)
[2020-09-19] MEDS: Morphine 4 MG/ML Syringe IV ×2 (15:58→17:26)
--- NOTE | 2020-09-19 16:05 | RAD_ITS ---
STUDY: X-RAY CHEST REASON FOR EXAM: Female, 79 years old. Productive cough. Yellow sputum. Sternal and chest pain and radiation to the back for 2 days. Pain worsens with breathing and movement. Currently being treated for lung cancer. TECHNIQUE: Single AP portable view of the chest. COMPARISON: 08/21/2020. FINDINGS: Telemetry wires overlie the chest. There is a mildly decreased inspiratory effort. There is density along the lateral horizontal fissure and peripherally in both upper lobes. Minimal density is seen at the lung bases. There is no demonstrated pleural abnormality. The heart is unchanged in size. Normal mediastinum and juaquin. Normal visualized pulmonary arteries. There is atherosclerotic calcification of the aortic arch with tortuosity. Scoliosis and degenerative changes of the thoracic spine. There is degenerative osteoarthritis of the bilateral shoulders. There is no demonstrated abnormality of the visualized soft tissue structures of the upper abdomen. RAD/Chest 1 View (Portable) IMPRESSION: Increased peripheral infiltrates suspicious for atypical viral pneumonia. The remainder of the findings appear stable. Electronically Signed: Franklyn Bond DO at 16:31 EST Tel [phone], Service support ,
[2020-09-19 16:40] LABS: ALB/GLOB Ratio 0.8 RATIO (0.9-2.4); AST(SGOT) 21 U/L (15-37); Alanine Aminotransfer ALT/SGPT 15 U/L (13-56); Albumin, Serum 2.8 g/dL (3.2-5.0); Alkaline Phosphatase 66 U/L (45-117); Anion Gap 9 (5-15); BUN 12 mg/dL (7-18); BUN/Creat Ratio 18.4 RATIO (10-20); Calcium,Total 9.1 mg/dL (8.5-10.1); Chloride 98 mmol/L (98-107); Creatinine, Serum 0.65 mg/dL (0.55-1.02); EST Glomerular Filtration Rate 93 mL/min (>60); Est Glom Filt Rate - Afr Amer 112 mL/min (>60); Estimated Creatinine Clearance 36.08 ml/min; Globulin 3.4 g/dL (2.2-4.2); Glucose 129 mg/dL (74-106); Lipase 120 U/L (73-393); Protein, Total 6.2 g/dL (6.4-8.2); Sodium Level 132 mmol/L (136-145)
--- NOTE | 2020-09-19 17:12 | CT_ITS ---
STUDY: CTA CHEST REASON FOR EXAM: Female, 79 years old. Worsening chest pain over 2 days. Radiation to the back. History of lung cancer. RADIATION DOSAGE (If Supplied By Facility): CTDIvol = ( 5.55 ) mGy, DLP = ( 184.96 ) mGycm TECHNIQUE: The examination was performed with the intravenous administration of IV 100mL [id number]-370. Post-processing of the angiographic images was performed, with multiplanar reformation and 3D reconstruction. Individualized dose optimization techniques were used for this CT. COMPARISON: Chest, 09/19/2020. CT of the chest, 08/21/2020. FINDINGS: Normal enhancement of the main pulmonary artery and right and left pulmonary arteries. Normal enhancement of the bilateral peripheral pulmonary arteries. There is no demonstrated pulmonary embolism. Atherosclerotic tortuosity of the thoracic aorta. No aneurysm. There is no demonstrated aortic dissection. The heart is normal in size. Small pericardial effusion. There are calcified mediastinal lymph nodes. Calcified left hilar lymph nodes. Normal visualized trachea and bronchi. The lungs are hyper expanded, with flattening of the hemidiaphragms. There is diffuse emphysematous changes lungs. There is ground glass infiltrates in the right upper lobe with evidence of minimal subpleural density seen in the left upper lobe. There is atelectasis along the left oblique fissure. There is a calcified nodule in the left lower lobe. Groundglass infiltrate is also seen in the right lower lobe. There are multiple calcifications in both breasts. There are degenerative changes of thoracic spine. There are is evidence of enlargement of the abdominal aorta. On the posterior inferior image the aorta measures 3.6 x 3.7 cm. Calcified granulomata spleen. CT/CTA Chest W/WO Contrast IMPRESSION: 1. No evidence of pulmonary embolus. 2. No aortic dissection or aneurysm. 3. Left pleural effusion and atelectasis. This appears stable. 4. Diffuse ground glass infiltrates most marked in the right lung. Question COVID 19 pneumonia. 5. Cardiomegaly with pericardial effusion. 6. Abdominal aortic aneurysm. Electronically Signed: Franklyn Bond DO at 18:21 EST Tel [phone], Service support ,
[2020-09-19] MEDS: levoFLOXacin IV 750 MG/150 ML BAG 100 MG IV (17:26)
[2020-09-19 17:43] LABS: Absolute Lymphocyte Count 0.69 X10^3/uL (0.83-4.51); Absolute Neutrophil Count 4.9 X10^3/uL (2.0-7.7); Basophil# 0.01 X10^3/uL; Basophil% 0.2 % (0-1); Eosinophil# 0.04 X10^3/uL; Eosinophils% 0.7 % (0-5); Hematocrit 32.2 % (37-47); Hemoglobin 10.7 g/dL (12.0-15.0); Lymphocyte # 0.69 X10^3/ul (4.0); Lymphocyte % 11.3 % (19-41); Mean Corp Hgb Conc 33.2 g/dL (32-36); Mean Corpuscular Hgb 29.6 pg (27.0-32.0); Mean Corpuscular Volume 89.2 fL (81-99); Mean Platelet Vol. 11.9 fl (6.2-12.0); Monocyte# 0.42 X10^3/uL; Monocyte% 6.9 % (0-10); NRBC Flagged by Analyzer 0 % (0-5); Neutrophil # 4.93 X10^3/uL (2.7-7.7); Neutrophil % 80.2 % (47-70); POSITIVE COUNT YES; Platelet Count 81 K/mm3 (150-450); RBC Distribution Width CV 15.9 % (11.6-14.6); Red Blood Count 3.61 M/mm3 (4.2-5.4); White Blood Count 6.1 K/mm3 (4.4-11.0)
[2020-09-19 17:52] LABS: Differential Indicated SCAN CRITERIA MET
[2020-09-19 17:54] LABS: Lactic Acid 1.6 mmol/L (0.4-1.9)
[2020-09-19 18:10] LABS: Differential Comment SCANNED
--- NOTE | 2020-09-19 18:51 | PCM.HP.STD ---
Problem List (1) Lung cancer Status: Acute Qualifiers: Laterality: left Lung location: hilum of lung Qualified Code(s): C34.02 - Malignant neoplasm of left main bronchus (2) HTN (hypertension) Status: Chronic Qualifiers: Hypertension type: essential hypertension Qualified Code(s): I10 - Essential (primary) hypertension (3) COPD (chronic obstructive pulmonary disease) Status: Chronic Qualifiers: COPD type: COPD with acute exacerbation Qualified Code(s): J44.1 - Chronic obstructive pulmonary disease with (acute) exacerbation (4) PAF (paroxysmal atrial fibrillation) Status: Chronic History of Present Illness Date of Admission: 09/19/20 Chief Complaint: Chest pain, shortness of breath?2 day The patient is a 79 year old F with past medical history of lung CA status post chemotherapy and radiation therapy who comes in with progressive chest pain and shortness of breath ongoing for about 2 to 3 days. Patient complains of upper respiratory illness with cough productive of whitish sputum. She complains of chest pain that is sharp, worse with deep breath, relieved only when she had pain medications in the ED. Denied any sick contact. Vitals in the ED showed temperature of 90 8.3F, heart rate 93, blood pressure 126/93, respiratory rate of 23, SPO2 is 92% on room air, improved to 97% on 2 L. WBC count of 6.1, hemoglobin 10.7, platelet count 81, is actually at baseline, BMP was unremarkable for chronic hyponatremia with sodium of 132, lactic acid 1.6. COVID-19 rapid antigen and PCR is negative. Chest x-ray showed increased peripheral infiltrates, suspicious of atypical viral pneumonia. CTA of the chest showed no acute PE, showed left pleural effusion with atelectasis, diffuse groundglass infiltrate most marked in the right lung. Cardiomegaly with pericardial effusion, abdominal aortic aneurysm Past Medical History Past Medical History (Chronic Problems): Chronic Problems HTN (hypertension) (Chronic) GERD (gastroesophageal reflux disease) (Chronic) COPD (chronic obstructive pulmonary disease) (Chronic) PAF (paroxysmal atrial fibrillation) (Chronic) Constipation (Chronic) Depression (Chronic) Allergies codeine Adverse Reaction (Verified 09/19/20 14:58) Abd cramps/diarrhea Home Medications: Ambulatory Orders Medication Instructions Recorded Albuterol Inhaler [Ventolin Hfa] 1 - 2 puff INHALATION Q4H PRN PRN 08/21/20 Atenolol [Tenormin] 50 mg PO DAILY 08/21/20 Dexamethasone [Decadron] 2 mg PO QODAY 08/21/20 Diltiazem HCl [Cardizem] 120 mg PO DAILY 08/21/20 Enoxaparin Sodium [Lovenox] 40 mg SQ DAILY 08/21/20 Ipratropium/Albuterol Respimat 1 puff INHALATION 4X/DAY 08/21/20 [Combivent Respimat Inhal [place]] Nystatin 5 ml PO 4X/DAY 08/21/20 Ondansetron [Zofran] 8 mg PO Q8H PRN PRN 08/21/20 Polyethylene Glycol 3350 [Miralax] 17 gm PO PRN PRN 08/21/20 Senna [Senokot] 1 tab PO PRN PRN 08/21/20 Omeprazole 40 mg PO DAILY 09/19/20 Sertraline HCl 50 mg PO DAILY 09/19/20 Surgical History: noncontributory Psychiatric History: No pertinent psych hx OWNER/OPERATOR History: No pertinent OWNER/OPERATOR history Lives: Spouse/ Significant Other Smoking Status: Former smoker Tobacco Use: Non-smoker Alcohol: None Drugs: None - *Family History Maternal History Items: Heart Disease Review of Systems Constitutional: Reports: Anorexia, Malaise, Weakness, Fatigue. Denies: Chills, Fever, Weight Change Eyes: Denies: Blurred vision, Cataracts, Conjunctivae Inflammation, Pain, Redness, Vision Change HEENT: Denies: Difficulty Hearing, Difficulty Swallowing, Head Aches, Hearing Changes, Sinus Congestion, Sinus Drainage Cardiovascular: Reports: Chest Pain. Denies: Claudication, Orthopnea, Palpitations Respiratory: Reports: Cough, Shortness of Breath, Shortness of breath at rest, Shortness of breath upon exertion. Denies: Sputum production Gastrointestinal: Denies: Abdominal Pain, Nausea, Vomiting Genitourinary: Denies: Dysuria Musculoskeletal: Denies: Joint Pain, Joint stiffness, Joint swelling, Joint Tenderness Skin: Denies: Rash, Wounds Neurological: Denies: Numbness, Tingling, Focal weakness Psychiatric: Denies: Anxiety, Depression, Homicidal Ideations, Suicidal Ideations Hematologic/ Lymphatic: Denies: Easy Bruising, Easy Bleeding VTE Information - Inpt Only VTE Present on Admission: No VTE Pharm Prophylaxis ordered?: Yes Patient Problems: Active and Suspected Problems Lung cancer (Acute) - Physical Exam Vitals/I&O's: Vital Signs Temp Pulse Resp BP Pulse Ox 98.3 F 88 16 121/89 H 97 09/19/20 17:58 09/19/20 17:58 09/19/20 17:58 09/19/20 17:58 09/19/20 17:58 Oxygen Flow Rate (L/min) 2 Oxygen Delivery Method Nasal Cannula Weight: 58.967 kg Body Mass Index (BMI) 23.8 General: Alert, Oriented x3, Cooperative, - - In mild distress from pain HEENT: Atraumatic, PERRLA, EOMI, Normocephalic Oral: Moist Mucosa Neck: Supple Lungs: Diminished, Wheezes - Scattered Cardiovascular: Regular rate, Regular Rhythm, Normal S1, Normal S2, No murmurs Abdomen: Bowel Sounds Present, Soft, Non Tender, Non-Distended Extremities: No edema Skin: No rashes, No breakdown Musculoskeletal: No Tenderness to Palpation of Joints or Extremities Lymphatic: No Cervical, Supraclavicular, or Inguinal Adenopathy Neurological: Cranial nerves II-XII grossly intact, Neuro grossly intact Psych/Mental Status: Normal Affect, Appropriate Microbiology Past 72 Hours 09/19/20 15:45 Mucosa - Nose SARS-CoV-2 Antigen (Rapid) - Final Laboratory Results 09/19/20 15:45: WBC Cancelled, Corrected WBC Cancelled, RBC Cancelled, Hgb Cancelled, Hct Cancelled, MCV Cancelled, MCH Cancelled, MCHC Cancelled, RDW Std Deviation Cancelled, RDW Coeff of Rashid Cancelled, Plt Count Cancelled, MPV Cancelled, Immature Gran % (Auto) Cancelled, Neut % (Auto) Cancelled, Lymph % (Auto) Cancelled, [place] % (Auto) Cancelled, Eos % (Auto) Cancelled, Baso % (Auto) Cancelled, Absolute Neuts (auto) Cancelled, Absolute Lymphs (auto) Cancelled, Total Counted Cancelled, Neutrophils % (Manual) Cancelled, Band Neutrophils % Cancelled, Lymphocytes % (Manual) Cancelled, Monocytes % (Manual) Cancelled, Eosinophils % (Manual) Cancelled, Basophils % (Manual) Cancelled, Metamyelocytes % Cancelled, Myelocytes % Cancelled, Promyelocytes % Cancelled, Blast Cells % Cancelled, Plasma Cell % (Manual) Cancelled, Other Cells % Cancelled, Nucleated RBC % Cancelled, Nucleated RBCs/100 WBC Cancelled, Differential Comment Cancelled, Diff Path Review Cancelled, Hypersegmented Neuts Cancelled, Atypical Lymphocytes Cancelled, Reactive Lymphocytes Cancelled, Smudge Cells Cancelled, Toxic Granulation Cancelled, Toxic Vacuolation Cancelled, Dohle Bodies Cancelled, Kayla Rods Cancelled, Platelet Estimate Cancelled, Plt Morphology Comment Cancelled, RBC Morphology Cancelled, Polychromasia Cancelled, Hypochromasia Cancelled, Poikilocytosis Cancelled, Basophilic Stippling Cancelled, Anisocytosis Cancelled, Microcytosis Cancelled, Macrocytosis Cancelled, Spherocytes Cancelled, Sickle Cells Cancelled, Target Cells Cancelled, Tear Drop Cells Cancelled, Ovalocytes Cancelled, Stomatocytes Cancelled, [place] Bodies Cancelled, Claudio Cells Cancelled, Bite Cells Cancelled, Crenated Cell Cancelled, Acanthocytes (Spur) Cancelled, Rouleaux Cancelled, Schistocytes Cancelled 09/19/20 15:45: Sodium 132 L, Potassium 4.0, Chloride 98, Carbon Dioxide 25.0, Anion Gap 9, BUN 12, Creatinine 0.65, Estim Creat Clear Calc 36.08, Est GFR (MDRD) Af Amer 112, Est GFR (MDRD) Non-Af 93, BUN/Creatinine Ratio 18.4, Glucose 129 H, Calcium 9.1, Total Bilirubin 0.90, AST 21, ALT 15, Alkaline Phosphatase 66, Troponin I < 0.015, Total Protein 6.2 L, Albumin 2.8 L, Globulin 3.4, Albumin/Globulin Ratio 0.8 L, Lipase 120 09/19/20 17:10: Lactic Acid 1.6 09/19/20 17:10: WBC 6.1, RBC 3.61 L, Hgb 10.7 L, Hct 32.2 L, MCV 89.2, MCH 29.6, MCHC 33.2, RDW Std Deviation 52.0 H, RDW Coeff of Rashid 15.9 H, Plt Count 81 L, MPV 11.9, Immature Gran % (Auto) 0.700, Neut % (Auto) 80.2 H, Lymph % (Auto) 11.3 L, [place] % (Auto) 6.9, Eos % (Auto) 0.7, Baso % (Auto) 0.2, Absolute Neuts (auto) 4.9, Absolute Lymphs (auto) 0.69 L, Nucleated RBC % 0, Differential Comment SCANNED 09/19/20 17:20: COVID-19 (ALLY) Pending Current Medications Sodium Chloride () 1,000 mls @ 150 mls/hr IV .[id number] [facility] Last Admin: 09/19/20 15:58 Dose: 150 mls/hr Documented by: Assessment/Plan All Active Problems Lung cancer (Acute) Nausea & vomiting (Acute) Thrush (Acute) Radiation esophagitis (Acute) 1. Pneumonia, atypical, seen on CTA of the chest and chest x-ray COVID-19 rapid antigen and PCR is negative We will get respiratory panel Continue IV Zosyn and vancomycin Urine Legionella enterococcal antigen Breathing treatments as needed 2. Acute COPD exacerbation, mild, secondary to #1 We will continue on breathing treatment, IV Solu-Medrol 3. Pericardial effusion seen on CTA of the chest Will get 2D echo 4. Lung CA, status post chemotherapy and radiation therapy. Last treatment was in August Patient is to follow-up in the outpatient 5. Chronic atrial fibrillation, controlled, continue on atenolol, Cardizem, 6. DVT prophylaxis?Lovenox SC 7. Code status?DNR CCA I discussed and explained in details the various types of CODE STATUS-full code, DNR CCA, DNR CC. Patient chose DNR-CC. She would like to be made comfortable. Patient is a candidate for palliative care. Social work will be consulted Time spent discussing CODE STATUS 17 minutes Inpatient E&M: 64541 Init Hosp L3 Procedures: 72914 Advncd Care Plan 30 Min
--- NOTE | 2020-09-19 21:37 | ECHOCS_ITS ---
Version 2 Reason For Study: Dyspnea/SOB Procedure This was a 2D Doppler, Color Flow transthoracic echocardiogram. The study was technically difficult. Contrast injection was performed. Patient in Covid precautions. Exam performed portable in ICU/CCU. The exam was abbreviated due to the COVID 19 protocol. Left Ventricle Normal LV size. The estimated ejection fraction is 40 %. There is mild to moderate global hypokinesis of the left ventricle. Right Ventricle Normal RV size. Normal systolic function. Atria Normal left atrium. Normal right atrium. Mitral Valve Normal mitral valve. Tricuspid Valve The tricuspid valve is not well visualized. Aortic Valve The aortic valve is not well visualized. Pulmonic Valve The pulmonic valve is not well visualized. Great Vessels Normal aortic root. The pulmonary artery is normal size. Pericardium/Pleural No pericardial effusion. Small left pleural effusion. Medication Diluted definity 3ml given slow IV push to enhance endocardial definition. MMode/2D Measurements & Calculations LVIDd: 4.8 cm IVSd: 0.85 cm LA dimension: 4.1 cm LVIDs: 3.2 cm LVPWd: 0.80 cm FS: 33.1 % LAV(MOD-bp): 53.5 ml LA A4 area: 19.1 cm2 RA A4 area: 19.6 cm2 LAV(MOD-sp2): 52.9 ml LAV(MOD-sp4): 49.7 ml Doppler Measurements & Calculations AI max nimisha: 503.0 cm/sec PA V2 max: 56.9 cm/sec TR max nimisha: 216.1 cm/sec AI max P.3 mmHg TR max P.7 mmHg AI dec slope: 226.7 cm/sec2 AI P1/2t: 650.0 msec Interpretation Summary Normal LV size. The estimated ejection fraction is 40 %. There is mild to moderate global hypokinesis of the left ventricle. Contrast injection was performed. Ordering Physician: Glory Yoo Referring Physician: Jamil Hooks Performed By: Jeramy Nesbitt RCS
[2020-09-19] MEDS: Vancomycin IV 1,000 MG/200 ML BAG 200 MG IV (21:50)
--- NOTE | 2020-09-19 22:05 | NURSING ---
Talked to pt's daughter, Lin Jack, ([phone]) to give her an update on this pt since she had called in earlier. Also advised her on visitation protocol.
--- NOTE | 2020-09-19 23:04 | PCM.RX.CS ---
Consult Pharmacy has been consulted to manage selected antiobiotic: Vancomycin Type of Consult: New start Labs: Sodium 132 mmol/L (136-145) L 09/19/20 15:45 Potassium 4.0 mmol/L (3.5-5.1) 09/19/20 15:45 Chloride 98 mmol/L (98-107) 09/19/20 15:45 Carbon Dioxide 25.0 mmol/L (21.0-32.0) 09/19/20 15:45 Anion Gap 9 (5-15) 09/19/20 15:45 BUN 12 mg/dL (7-18) 09/19/20 15:45 Creatinine 0.65 mg/dL (0.55-1.02) 09/19/20 15:45 Est GFR (MDRD) Af Amer 112 mL/min (>60) 09/19/20 15:45 Est GFR (MDRD) Non-Af 93 mL/min (>60) 09/19/20 15:45 BUN/Creatinine Ratio 18.4 RATIO (10-20) 09/19/20 15:45 Glucose 129 mg/dL (74-106) H 09/19/20 15:45 Microbiology: Microbiology 09/19/20 15:45 Mucosa - Nose SARS-CoV-2 Antigen (Rapid) - Final Goal Trough: 15-20 mcg/mL Pharmacy Plan for Drug Dosing: Pharmacy Service will continue to monitor and adjust dosing as required. Medications Vancomycin HCl () 500 mg in 100 mls @ 100 mls/hr IV Q12H [facility] Discontinued Medications Vancomycin HCl (Vancomycin) 1,000 mg in 200 mls @ 200 mls/hr IV X1 ONE Stop: 09/19/20 22:29 Last Admin: 09/19/20 22:53 Dose: Infused Documented by: Follow-Up Labs: Trough Vancomycin Labs to be done on [date and time ordered]: 09/21 @ 8927
[2020-09-19] MEDS: Morphine 2 MG/ML Syringe IV (23:08)
[2020-09-19] MEDS: NYSTATIN 500,000 UNIT/5 ML UDC 500000 UNIT PO (23:12)
[2020-09-20] VITALS (9 sets, daily range): BP systolic 122–128; BP diastolic 83–90; PULSE 73–108; RESP 13–20; TEMP 36.3–36.6; O2SAT 93–98; BMI 23.8
[2020-09-20 06:39] LABS: Absolute Lymphocyte Count 0.38 X10^3/uL (0.83-4.51); Absolute Neutrophil Count 2.8 X10^3/uL (2.0-7.7); Hematocrit 30.4 % (37-47); Hemoglobin 10.2 g/dL (12.0-15.0); Lymphocyte # 0.38 X10^3/ul (4.0); Lymphocyte % 11.4 % (19-41); Mean Corp Hgb Conc 33.6 g/dL (32-36); Mean Corpuscular Hgb 29.8 pg (27.0-32.0); Mean Corpuscular Volume 88.9 fL (81-99); Mean Platelet Vol. 11.3 fl (6.2-12.0); NRBC Flagged by Analyzer 0 % (0-5); Neutrophil # 2.82 X10^3/uL (2.7-7.7); POSITIVE COUNT YES; POSITIVE DIFFERENTIAL YES; Platelet Count 69 K/mm3 (150-450); RBC Distribution Width CV 15.8 % (11.6-14.6); RBC Distribution Width SD 51.6 fl (35.1-43.9); Red Blood Count 3.42 M/mm3 (4.2-5.4); White Blood Count 3.3 K/mm3 (4.4-11.0)
[2020-09-20 06:41] LABS: Differential Indicated SCAN CRITERIA MET
[2020-09-20 07:08] LABS: Differential Comment SCANNED; Platelet Estimate MOD DEC (ADEQ)
[2020-09-20 07:10] LABS: ALB/GLOB Ratio 0.7 RATIO (0.9-2.4); AST(SGOT) 12 U/L (15-37); Alanine Aminotransfer ALT/SGPT 14 U/L (13-56); Albumin, Serum 2.3 g/dL (3.2-5.0); Alkaline Phosphatase 61 U/L (45-117); Anion Gap 8 (5-15); BUN 10 mg/dL (7-18); BUN/Creat Ratio 18.5 RATIO (10-20); Calcium,Total 8.3 mg/dL (8.5-10.1); Chloride 99 mmol/L (98-107); Creatinine, Serum 0.54 mg/dL (0.55-1.02); EST Glomerular Filtration Rate 116 mL/min (>60); Est Glom Filt Rate - Afr Amer 140 mL/min (>60); Estimated Creatinine Clearance 36.08 ml/min; Globulin 3.3 g/dL (2.2-4.2); Glucose 153 mg/dL (74-106); Potassium 3.8 mmol/L (3.5-5.1); Protein, Total 5.6 g/dL (6.4-8.2); Sodium Level 131 mmol/L (136-145)
[2020-09-20] MEDS: Ipratropium/Albuterol Sulfate 3 ML AMPUL.NEB INHALATION (07:32)
--- NOTE | 2020-09-20 08:52 | PN_ITS ---
Subjective: Chief complaint: Follow-up after admission for pneumonia and hypoxia. Patient seen and examined. No acute events overnight. She complains of minimal shortness of breath, reported mild cough. She reported mild chest discomfort upon swallowing in context of recent history of radiation esophagitis. She denied fever or chills. She is afebrile, blood pressure and heart rate stable, pulse ox is 95% on 1 L. - Physical Exam Vitals/I&O's: Vital Signs Temp Pulse Resp BP Pulse Ox 97.5 F L 106 H 20 H 122/90 H 95 09/20/20 03:45 09/20/20 07:34 09/20/20 07:34 09/20/20 03:45 09/20/20 07:34 Oxygen Flow Rate (L/min) 1 Oxygen Delivery Method Nasal Cannula Weight: 130 lb 1.164 oz Body Mass Index (BMI) 24.2 Intake and Output for Last 24 Hours 09/18/20 09/19/20 09/20/20 23:59 23:59 23:59 Intake Total 1350 / 1350 250 / 250 Output Total 300 / 300 Balance 1350 / 1350 -50 / -50 General: Alert, Oriented x3, Cooperative, No apparent distress, - HEENT: Atraumatic, PERRLA, EOMI, Normocephalic Oral: Moist Mucosa, No Gingival or Mucosal Lesions/ Ulcerations Neck: Supple, No JVD, Negative Carotid Bruits, Trachea Midline, Thyroid Normal Size and Texture Lungs: Clear to auscultation, No rhonchi, No wheeze, No rales, Diminished Cardiovascular: Regular rate, Regular Rhythm, Normal S1, Normal S2, PMI Normal Abdomen: Bowel Sounds Present, Soft, Non Tender, Non-Distended, No Hepato- splenomegaly Extremities: No clubbing, No cyanosis, Edema - Trace edema. Skin: No rashes, No breakdown Lymphatic: No Cervical, Supraclavicular, or Inguinal Adenopathy Neurological: Cranial nerves II-XII grossly intact, Motor Exam 5/5 strength throughout Psych/Mental Status: Normal Affect, Appropriate Microbiology Past 72 Hours 09/19/20 21:38 Mucosa - Nose Respiratory Panel (PCR) - Final 09/19/20 15:45 Mucosa - Nose SARS-CoV-2 Antigen (Rapid) - Final Laboratory Results 09/19/20 15:45: WBC Cancelled, Corrected WBC Cancelled, RBC Cancelled, Hgb Cancelled, Hct Cancelled, MCV Cancelled, MCH Cancelled, MCHC Cancelled, RDW Std Deviation Cancelled, RDW Coeff of Rashid Cancelled, Plt Count Cancelled, MPV Cancelled, Immature Gran % (Auto) Cancelled, Neut % (Auto) Cancelled, Lymph % (Auto) Cancelled, [place] % (Auto) Cancelled, Eos % (Auto) Cancelled, Baso % (Auto) Cancelled, Absolute Neuts (auto) Cancelled, Absolute Lymphs (auto) Cancelled, Total Counted Cancelled, Neutrophils % (Manual) Cancelled, Band Neutrophils % Cancelled, Lymphocytes % (Manual) Cancelled, Monocytes % (Manual) Cancelled, Eosinophils % (Manual) Cancelled, Basophils % (Manual) Cancelled, Metamyelocytes % Cancelled, Myelocytes % Cancelled, Promyelocytes % Cancelled, Blast Cells % Cancelled, Plasma Cell % (Manual) Cancelled, Other Cells % Cancelled, Nucleated RBC % Cancelled, Nucleated RBCs/100 WBC Cancelled, Differential Comment Cancelled, Diff Path Review Cancelled, Hypersegmented Neuts Cancelled, Atypical Lymphocytes Cancelled, Reactive Lymphocytes Cancelled, Smudge Cells Cancelled, Toxic Granulation Cancelled, Toxic Vacuolation Cancelled, Dohle Bodies Cancelled, Kayla Rods Cancelled, Platelet Estimate Cancelled, Plt Morphology Comm ent Cancelled, RBC Morphology Cancelled, Polychromasia Cancelled, Hypochromasia Cancelled, Poikilocytosis Cancelled, Basophilic Stippling Cancelled, Anisocytosis Cancelled, Microcytosis Cancelled, Macrocytosis Cancelled, Spherocytes Cancelled, Sickle Cells Cancelled, Target Cells Cancelled, Tear Drop Cells Cancelled, Ovalocytes Cancelled, Stomatocytes Cancelled, Reddy[place] Bodies Cancelled, [place] Cells Cancelled, Bite Cells Cancelled, Crenated Cell Cancelled, Acanthocytes (Spur) Cancelled, Rouleaux Cancelled, Schistocytes Cancelled 09/19/20 15:45: Sodium 132 L, Potassium 4.0, Chloride 98, Carbon Dioxide 25.0, Anion Gap 9, BUN 12, Creatinine 0.65, Estim Creat Clear Calc 36.08, Est GFR (MDRD) Af Amer 112, Est GFR (MDRD) Non-Af 93, BUN/Creatinine Ratio 18.4, Glucose 129 H, Calcium 9.1, Total Bilirubin 0.90, AST 21, ALT 15, Alkaline Phosphatase 66, Troponin I < 0.015, Total Protein 6.2 L, Albumin 2.8 L, Globulin 3.4, Albumin/Globulin Ratio 0.8 L, Lipase 120 09/19/20 17:10: Lactic Acid 1.6 09/19/20 17:10: WBC 6.1, RBC 3.61 L, Hgb 10.7 L, Hct 32.2 L, MCV 89.2, MCH 29.6, MCHC 33.2, RDW Std Deviation 52.0 H, RDW Coeff of Rashid 15.9 H, Plt Count 81 L, MPV 11.9, Immature Gran % (Auto) 0.700, Neut % (Auto) 80.2 H, Lymph % (Auto) 11.3 L, [place] % (Auto) 6.9, Eos % (Auto) 0.7, Baso % (Auto) 0.2, Absolute Neuts (auto) 4.9, Absolute Lymphs (auto) 0.69 L, Nucleated RBC % 0, Differential Comment SCANNED 09/19/20 17:20: COVID-19 (ALLY) Not Detected 09/20/20 06:28: WBC 3.3 L, RBC 3.42 L, Hgb 10.2 L, Hct 30.4 L, MCV 88.9, MCH 29.8, MCHC 33.6, RDW Std Deviation 51.6 H, RDW Coeff of Rashid 15.8 H, Plt Count 69 L, MPV 11.3, Immature Gran % (Auto) 0.600, Neut % (Auto) 85.0 H, Lymph % (Auto) 11.4 L, [place] % (Auto) 3.0, Eos % (Auto) 0.0, Baso % (Auto) 0.0, Absolute Neuts (auto) 2.8, Absolute Lymphs (auto) 0.38 L, Nucleated RBC % 0, Differential Comment SCANNED, Diff Path Review December roslyn, Platelet Estimate MOD 09/20/20 06:28: Sodium 131 L, Potassium 3.8, Chloride 99, Carbon Dioxide 24.0, Anion Gap 8, BUN 10, Creatinine 0.54 L, Estim Creat Clear Calc 36.08, Est GFR (MDRD) Af Amer 140, Est GFR (MDRD) Non-Af 116, BUN/Creatinine Ratio 18.5, Glucose 153 H, Calcium 8.3 L, Total Bilirubin 0.80, AST 12 L, ALT 14, Alkaline Phosphatase 61, Total Protein 5.6 L, Albumin 2.3 L, Globulin 3.3, Albumin/Globulin Ratio 0.7 L Clinical Impression(s) from Imaging Studies Chest X-Ray 09/19/20 16:05 IMPRESSION: Increased peripheral infiltrates suspicious for atypical viral pneumonia. The remainder of the findings appear stable. Electronically Signed: Franklyn Bond DO at 16:31 EST Tel [phone], Service support , Chest CTA 09/19/20 17:12 IMPRESSION: 1. No evidence of pulmonary embolus. 2. No aortic dissection or aneurysm. 3. Left pleural effusion and atelectasis. This appears stable. 4. Diffuse ground glass infiltrates most marked in the right lung. Question COVID 19 pneumonia. 5. Cardiomegaly with pericardial effusion. 6. Abdominal aortic aneurysm. Electronically Signed: Franklyn Bond DO at 18:21 EST Tel [phone], Service support , Current Medications Acetaminophen (Acetaminophen 325 Mg Tablet) 650 mg PO Q6H PRN PRN PRN Reason: Pain Score 1-10/Temp > 100.7 F Albuterol Sulfate (Albuterol Ih 8.5 Gm (Proair) Inhaler (200 Puffs)) 2 puff INHALATION Q4H PRN PRN PRN Reason: Shortness of breath, wheezing Atenolol (Atenolol 50 Mg Tablet) 50 mg PO DAILY [facility] Dexamethasone Sodium Phosphate (Dexamethasone 10 Mg/Ml Vial) 6 mg IV DAILY [facility] Diltiazem HCl (Diltiazem Cd 120 Mg Capsule) 120 mg PO DAILY [facility] Enoxaparin Sodium (Enoxaparin 30 Mg/0.3 Ml Syringe) 30 mg SC BID [facility] Piperacillin Sod/Tazobactam (Sod 3.375 gm/ Sodium Chloride) 50 mls @ 12.5 mls/hr IV Q8 [facility] Last Admin: 09/20/20 05:26 Dose: 12.5 mls/hr Documented by: Sodium Chloride () 250 mls @ 15 mls/hr IV .[id number] PRN PRN Reason: Saline Flush Sodium Chloride () 250 mls @ 15 mls/hr IV .[id number] PRN PRN Reason: Additional IVPB Infusion Morphine Sulfate (Morphine 2 Mg/Ml Syringe) 2 mg IV Q3H PRN PRN PRN Reason: Pain Score 6-10 Last Admin: 09/19/20 23:08 Dose: 2 mg Documented by: Nutritional Formula (Lactose Free) (Ensure Enlive 120 Ml Liquid) 120 ml PO 4X/DAY [facility] Nystatin (Nystatin 500,000 Unit/5 Ml Udc) 500,000 unit PO 4X/DAY [facility] Last Admin: 09/19/20 23:12 Dose: 500,000 unit Documented by: Ondansetron HCl (Ondansetron 4 Mg/2 Ml Vial) 4 mg IV Q8H PRN PRN PRN Reason: NAUSEA/VOMITING Pantoprazole Sodium (Pantoprazole Sodium 40 Mg Tablet) 40 mg PO DAILY [facility] Polyethylene Glycol (Polyethylene Glycol 3350 17 Gm Packet) 17 gm PO DAILY PRN PRN PRN Reason: Constipation Senna (Senna Tablet) 1 tablet PO BID PRN PRN PRN Reason: Constipation Sertraline HCl (Sertraline 50 Mg Tablet) 50 mg PO DAILY [facility] Sodium Chloride (0.9% Saline Lock 10 Ml Syringe) 10 - 40 ml IV UD PRN PRN Reason: SALINE FLUSH Medical Necessity - Tobacco Use Smoking Status: Former smoker Tobacco Use: Non-smoker Assessment/Plan All Active Problems High suspicion COVID-19 pneumonia (Acute) This is a 79 years old female patient presented to the emergency room because of shortness of breath and chest pain, found to have peripheral bilateral lung infiltrate on chest x-ray as well as CTA chest, tested negative for COVID-19 antigen and COVID-19 PCR and she was admitted for pneumonia although I think she does have at least high suspicion of COVID-19 pneumonia. #1 high suspicion of acute bilateral COVID-19 pneumonia: Chest x-ray and CTA chest reviewed, no PE or dissection on CTA chest but revealed bilateral infiltrate. Although COVID-19 antigen and PCR was negative but I am highly suspicious this patient has COVID-19 pneumonia. She does have leukopenia and lymphopenia. Currently, she is on IV vancomycin and Zosyn. Respiratory panel for viruses were negative. Blood cultures pending. Plan: Transfer to [place] [id number] floor, isolation precautions, check CPK, procalcitonin, pro time and INR, D-dimer, start IV Decadron, continue IV Zosyn, discontinue IV vancomycin, continue oxygen by nasal cannula, infectious disease consult, may need to start her on IV remdesivir if agreed by ID, repeat CBC and CMP tomorrow morning. #2 chest pain: EKG without ischemic changes. Troponin is negative. Patient had recent history of radiation esophagitis. Plan to continue PPI, continue nystatin swish and swallow. #3 paroxysmal atrial fibrillation: Currently, rate is stable. Continue Cardizem and atenolol for rate control. She is not on anticoagulation. #4 COPD: Currently, she is on 2 L of oxygen. Plan for albuterol inhaler as needed. #5 hypertension: Blood pressure stable, continue atenolol, Cardizem. #6 non-small cell lung cancer: Status post chemotherapy and radiation, stable at this time, recommend follow-up with oncology as outpatient. #7 GERD: Continue PPI. #8 depression: Stable, continue Zoloft #9 DVT prophylaxis: Subcu Lovenox twice daily. This note was generated with [employer] dictation software. It may contain incorrect words, spelling, and punctuation that were not noted in checking the note before signing. Inpatient E&M: 82039 Subs Hosp L2
--- NOTE | 2020-09-20 09:23 | NURSING ---
message left on Lin's cell phone (patients daughter) to call this RN to update on POC.
--- NOTE | 2020-09-20 09:29 | NURSING ---
Lin, patients daughter, returned this RNs phone call. updated daughter on POC/transfer to ICU d/t COVID precautions.
[2020-09-20] MEDS: Pantoprazole Sodium 40 MG Tablet PO (09:48)
[2020-09-20] MEDS: Atenolol 50 MG Tablet PO (09:48)
[2020-09-20] MEDS: NYSTATIN 500,000 UNIT/5 ML UDC 500000 UNIT PO ×4 (09:48→22:32)
[2020-09-20] MEDS: dexAMETHasone 10 MG/ML Vial 6 MG IV (09:48)
[2020-09-20] MEDS: dilTIAZem CD 120 MG Capsule PO (09:48)
[2020-09-20] MEDS: Sertraline 50 MG Tablet PO (09:48)
[2020-09-20] MEDS: Enoxaparin 30 MG/0.3 ML Syringe SC ×2 (09:49→22:32)
[2020-09-20 09:50] LABS: International Normalized Ratio 1.1; Prothrombin Time (Protime)PT. 13.9 SECONDS (11.7-14.9)
[2020-09-20 10:01] LABS: D-Dimer Quantitative (DVT/PE) 2.67 FEU/ug/m (0.27-0.49)
[2020-09-20 10:02] LABS: CPK Total, Creatine Kinase 12 U/L (26-192)
--- NOTE | 2020-09-20 12:20 | NT.THERAPY_ITS ---
Nutrition Therapy Report - History Nutrition Services has been consulted to:: Manage nutrient details of diet order Current diet / nutrition support order:: Regular diet. 120 ml ensure enlive 4 times per day w/ medpass - Anthropometric Measurements Height:: 5 ft 2 in Weight:: 59 kg Body Mass Index (BMI):: 23.8 - Relevant Labs Relevant Labs:: WBC 3.3 K/mm3 (4.4-11.0) L 09/20/20 06:28 RBC 3.42 M/mm3 (4.2-5.4) L 09/20/20 06:28 Hgb 10.2 g/dL (12.0-15.0) L 09/20/20 06:28 Hct 30.4 % (37-47) L 09/20/20 06:28 RDW Std Deviation 51.6 fl (35.1-43.9) H 09/20/20 06:28 RDW Coeff of Rashid 15.8 % (11.6-14.6) H 09/20/20 06:28 Plt Count 69 K/mm3 (150-450) L 09/20/20 06:28 Neut % (Auto) 85.0 % (47-70) H 09/20/20 06:28 Lymph % (Auto) 11.4 % (19-41) L 09/20/20 06:28 Absolute Lymphs (auto) 0.38 X10^3/uL (0.83-4.51) L 09/20/20 06:28 D-Dimer Quant (PE/DVT) 2.67 FEU/ug/m (0.27-0.49) H* 09/20/20 09:20 Sodium 131 mmol/L (136-145) L 09/20/20 06:28 Creatinine 0.54 mg/dL (0.55-1.02) L 09/20/20 06:28 Glucose 153 mg/dL (74-106) H 09/20/20 06:28 Calcium 8.3 mg/dL (8.5-10.1) L 09/20/20 06:28 AST 12 U/L (15-37) L 09/20/20 06:28 Total Creatine Kinase 12 U/L (26-192) L 09/20/20 09:20 Total Protein 5.6 g/dL (6.4-8.2) L 09/20/20 06:28 Albumin 2.3 g/dL (3.2-5.0) L 09/20/20 06:28 Albumin/Globulin Ratio 0.7 RATIO (0.9-2.4) L 09/20/20 06:28 - Assessment Food / Nutrition-Related History:: Pt familiar to this RD--takes ensure at home typically but, appetite has been decreased with reported nausea currently. UBW reported~134 lbs and per EMR wt ~1 mos ago was 138 lbs. PO/mayte compromised and calculated wt loss~5-6% x past 3-4 weeks which is significant for malnutrition especially given ongoing poor intake <50% estimated nutrition needs x past 1-2 weeks. Will change ONS to w/ meals instead of w/ medpass given covid isolation. Pt has tolerated ensure clear in the past as well--will try both ensure enlive and ensure clear. - Nutrition Diagnosis Problem / Etiology / Signs & Symptoms (PES):: Severe pro/shania malnutrition in the context of acute on chronic disease related to ongoing suboptimal intake, s wallowing difficulty and increased nutrition needs as evidenced by 5-6% wt loss x past 3-4 weeks and less than 50% intake of estimated energy needs x past 5-7 days. Evidence of Malnutrition Exists:: Yes Severe PCM:: Acute Illness - Nutrition Intervention Nutrition Prescription:: Estimated nutrition needs~1759-8814 kcal and ~65-75 gm protein/day. - Food / Nutrient Delivery Interventions Summary of nutrition intervention:: Continue liberalized regular diet and encourage intake as tolerated. Will off 240 ml ensure enlive or 240 ml ensure clear w/ meals as tolerated. D/C ensure enlive w/ medpass. Nutrition education provided?: No - MNT Monitoring Further MNT monitoring and evaluation required?: Yes MNT Follow-up in:: 3-5 days
[2020-09-20 13:04] LABS: Procalcitonin 0.05 ng/mL (0.00-0.09)
--- NOTE | 2020-09-20 13:46 | CASEMGMT ---
MASHA AGOSTO chart review: Patient was admitted 08/21/2020-08/26/2020 to PCU for N/V, PAF, now in RVR, suspected UTI, and history of lung CA. See MASHA AGOSTO assessment from 08/22/20. Patient discharged to home and denied HHC at discharge. Patient returned 09/19/20 for chest pain, cough with sputum, abdominal pain, bilateral pneumonia suspected covid. Patient moved to ICU for Covid precautions. CM to monitor for need for home oxygen, outpatient follow-up with pulmonology and oncology. Discharge disposition: TBD by course of treatment and progress with therapy.
--- NOTE | 2020-09-20 14:08 | CHAPLAIN ---
Type of Pastoral Visit ___ Initial Visit ___ Follow-up Visit ___ On-call Visit ___ General Patient Visit ___ Spiritual Assessment ___ Family Conference ___ Bereavement ___ Rapid Response ___ Code Blue _x__ Other (describe below) Pastoral Care Referral From _x__ Patient ___ Family ___ Nurse ___ Physician ___ Technical Marketing Engineer ___ Gas Distribution Plant Operator ___ Other (describe below) Sacrament/Intervention ___ Active listening ___ Anointing ___ Pentecostalism ___ Bereavement ___ Communion ___ Kathi exploration ___ ___ Life review _x__ Prayer ___ Reconciliation ___ Sacrament of Sick ___ Supportive presence ___ Wedding ___ Other (describe below) Pastoral Comments unable to meet with patient in person due to isolation precautions; attempt made to call pt through phone and there was no answer; stood outside of door and offered prayer for patient and asked RN to notify pt of that and of future availability for spiritual care support
--- NOTE | 2020-09-20 14:34 | CASEMGMT ---
Social Work SW completed Palliative Medicine Screening tool with pt score of 5 indicating pt would benefit for palliative medicine. Phone call to pt room and SW introduced self to pt and explained Palliative Medicine program and benefits. Pt stating that she does not feel she would need this service at this time as her daughter assists her as needed. SW attempted to explain program again and that Palliative would assist pt and dgt with monitoring chronic health issues while at home and offer needed support to pt and dgt. Again pt declines. SW offered to provided brochure with more info on Palliative medicine and pt is agreeable to accept. Information given to nurse with request to give to pt next time she is in room. ELAINA Del Real
--- NOTE | 2020-09-20 14:37 | NURSING ---
RNCM Note: S/w patient via phone as patient is currently in active isolation. Patient is a Re-Admit- see RNCM assessment 08/22/20. Returned for Hypoxia, Suspect Covid PNA. Patient states she did take DC medications and followed up with Dr Hooks after last admission and denies any issues with DC. Patient states upon DC this admission would like to return home- her Dtr Lin assists her and denies HHC. Aware RNCM will continue to follow for mobility. Has Home O2 w/[employer]- baseline 2LNC, Current on 2LNC. RNCM to continue to follow for any O2 changes. States her Dtr Lin will transport her upon DC. Denies any further questions, concerns, or needs with DCP at this time. AYLA Potts
[2020-09-20 15:03] LABS: Pathologist Review Reviewed
--- NOTE | 2020-09-20 17:18 | PCM.HP.ID ---
Problem List (1) High suspicion COVID-19 pneumonia Status: Acute Reason for Consult: suspected covid Consulted by: Dr. Yoo History of Present Illness: The patient is a 79 year old F with NSCLC, presented with 2-3 days of cough, emesis, difficulty swallowing, white sputum, chest pain, not feeling well. No headache, no diarrhea, no aches, no sick contacts, no change in taste or smell. Daughter helps her at home, otherwise lives alone. Came to ED, admitted on vanc/zosyn, remdesivir, dex. Feeling better today. Full ROS performed and neg except as noted above. - Medical History Past Medical History (Chronic Problems): Chronic Problems Non-small cell lung cancer (NSCLC) (Chronic) HTN (hypertension) (Chronic) GERD (gastroesophageal reflux disease) (Chronic) COPD (chronic obstructive pulmonary disease) (Chronic) PAF (paroxysmal atrial fibrillation) (Chronic) Depression (Chronic) Allergies/Adverse Reactions: Allergies codeine Adverse Reaction (Verified 09/19/20 14:58) Abd cramps/diarrhea Home Medications: Ambulatory Orders Medication Instructions Recorded Albuterol Inhaler [Ventolin Hfa] 1 - 2 puff INHALATION Q4H PRN PRN 08/21/20 Atenolol [Tenormin] 50 mg PO DAILY 08/21/20 Dexamethasone [Decadron] 2 mg PO QODAY 08/21/20 Diltiazem HCl [Cardizem] 120 mg PO DAILY 08/21/20 Enoxaparin Sodium [Lovenox] 40 mg SQ DAILY 08/21/20 Ipratropium/Albuterol Respimat 1 puff INHALATION 4X/DAY 08/21/20 [Combivent Respimat Inhal [place]] Nystatin 5 ml PO 4X/DAY 08/21/20 Ondansetron [Zofran] 8 mg PO Q8H PRN PRN 08/21/20 Polyethylene Glycol 3350 [Miralax] 17 gm PO PRN PRN 08/21/20 Senna [Senokot] 1 tab PO PRN PRN 08/21/20 Omeprazole 40 mg PO DAILY 09/19/20 Sertraline HCl 50 mg PO DAILY 09/19/20 - Social History SMOKING STATUS:: Former smoker Vital Signs Temp Pulse Resp BP Pulse Ox 98 F 90 16 124/83 H 96 09/20/20 10:40 09/20/20 15:00 09/20/20 10:40 09/20/20 10:40 09/20/20 10:40 Oxygen Flow Rate (L/min) 2 Oxygen Delivery Method Nasal Cannula Weight: 59 kg Body Mass Index (BMI) 23.8 Microbiology Past 72 Hours 09/19/20 21:38 Respiratory Panel (PCR) - Final Mucosa - Nose 09/19/20 15:45 SARS-CoV-2 Antigen (Rapid) - Final Mucosa - Nose Laboratory Tests Past 24 Hrs 09/19/20 09/19/20 09/19/20 17:10 17:10 17:20 WBC 6.1 RBC 3.61 L Hgb 10.7 L Hct 32.2 L MCV 89.2 MCH 29.6 MCHC 33.2 RDW Std Deviation 52.0 H RDW Coeff of Rashid 15.9 H Plt Count 81 L MPV 11.9 Immature Gran % (Auto) 0.700 Neut % (Auto) 80.2 H Lymph % (Auto) 11.3 L [place] % (Auto) 6.9 Eos % (Auto) 0.7 Baso % (Auto) 0.2 Absolute Neuts (auto) 4.9 Absolute Lymphs (auto) 0.69 L Nucleated RBC % 0 Differential Comment SCANNED Diff Path Review Platelet Estimate PT INR D-Dimer Quant (PE/DVT) Sodium Potassium Chloride Carbon Dioxide Anion Gap BUN Creatinine Estim Creat Clear Calc Est GFR (MDRD) Af Amer Est GFR (MDRD) Non-Af BUN/Creatinine Ratio Glucose Lactic Acid 1.6 Calcium Total Bilirubin AST ALT Alkaline Phosphatase Total Creatine Kinase Total Protein Albumin Globulin Albumin/Globulin Ratio Procalcitonin COVID-19 (ALLY) Not Detected 09/20/20 09/20/20 09/20/20 06:28 06:28 09:20 WBC 3.3 L RBC 3.42 L Hgb 10.2 L Hct 30.4 L MCV 88.9 MCH 29.8 MCHC 33.6 RDW Std Deviation 51.6 H RDW Coeff of Rashid 15.8 H Plt Count 69 L MPV 11.3 Immature Gran % (Auto) 0.600 Neut % (Auto) 85.0 H Lymph % (Auto) 11.4 L [place] % (Auto) 3.0 Eos % (Auto) 0.0 Baso % (Auto) 0.0 Absolute Neuts (auto) 2.8 Absolute Lymphs (auto) 0.38 L Nucleated RBC % 0 Differential Comment SCANNED Diff Path Review Reviewed Platelet Estimate MOD DEC PT 13.9 INR 1.1 D-Dimer Quant (PE/DVT) 2.67 H* Sodium 131 L Potassium 3.8 Chloride 99 Carbon Dioxide 24.0 Anion Gap 8 BUN 10 Creatinine 0.54 L Estim Creat Clear Calc 36.08 Est GFR (MDRD) Af Amer 140 Est GFR (MDRD) Non-Af 116 BUN/Creatinine Ratio 18.5 Glucose 153 H Lactic Acid Calcium 8.3 L Total Bilirubin 0.80 AST 12 L ALT 14 Alkaline Phosphatase 61 Total Creatine Kinase Total Protein 5.6 L Albumin 2.3 L Globulin 3.3 Albumin/Globulin Ratio 0.7 L Procalcitonin COVID-19 (ALLY) 09/20/20 09/20/20 09:20 09:20 WBC RBC Hgb Hct MCV MCH MCHC RDW Std Deviation RDW Coeff of Rashid Plt Count MPV Immature Gran % (Auto) Neut % (Auto) Lymph % (Auto) [place] % (Auto) Eos % (Auto) Baso % (Auto) Absolute Neuts (auto) Absolute Lymphs (auto) Nucleated RBC % Differential Comment Diff Path Review Platelet Estimate PT INR D-Dimer Quant (PE/DVT) Sodium Potassium Chloride Carbon Dioxide Anion Gap BUN Creatinine Estim Creat Clear Calc Est GFR (MDRD) Af Amer Est GFR (MDRD) Non-Af BUN/Creatinine Ratio Glucose Lactic Acid Calcium Total Bilirubin AST ALT Alkaline Phosphatase Total Creatine Kinase 12 L Total Protein Albumin Globulin Albumin/Globulin Ratio Procalcitonin 0.05 COVID-19 (ALLY) - Other Studies Radiology: [] reviewed Other Studies: [] Route of nutrition/ use of supplements: [] Nutritional Intake: [] IV Site: [] [place] Catheter: [] - Physical Exam General: Alert, Oriented x3, Cooperative, No apparent distress HEENT: Atraumatic, PERRLA, EOMI Neck: Supple, No Nodes Lungs: Clear to auscultation, Diminished Cardiovascular: Regular rate, Regular Rhythm Abdomen: Soft, Non Tender, Non-Distended Extremities: No edema Skin: No rashes IV Site: Peripheral, without redness Musculoskeletal: No Tenderness to Palpation of Joints or Extremities Neurological: Cranial nerves II-XII grossly intact - Assessment/Plan Antibiotics: [] Assessment/Plan: [] suspected covid with groundglass changes on CT, elevated d-dimer, lymphopenia. PCT normal, will stop abx. Cont remdesivir and dex for now. Covid pcr and Ag neg. Will follow, thank you
[2020-09-20] MEDS: Morphine 2 MG/ML Syringe IV (22:36)
[2020-09-21] VITALS (13 sets, daily range): BP systolic 117–126; BP diastolic 65–83; PULSE 65–93; RESP 16–20; TEMP 36.4–37; O2SAT 95–98
--- NOTE | 2020-09-21 09:16 | PN_ITS ---
Patient Problems: Active and Suspected Problems High suspicion COVID-19 pneumonia (Acute) Subjective: Chief complaint: Follow-up after admission for high suspicion of acute bilateral COVID-19 pneumonia. Patient seen and examined. No acute events overnight. Today, she is feeling better, shortness of breath started to improve. She remains on 2 L of oxygen and she has been on oxygen at home at 2 L as well. Still having intermittent chest pain upon swallowing, intermittent but has been improving. No other complaints. She is afebrile, blood pressure and nausea are stable, pulse ox is 95% on 2 L. - Physical Exam Vitals/I&O's: Vital Signs Temp Pulse Resp BP Pulse Ox 97.9 F 75 16 122/79 H 95 09/21/20 05:00 09/21/20 05:44 09/21/20 05:00 09/21/20 05:00 09/21/20 07:25 Oxygen Flow Rate (L/min) 2 Oxygen Delivery Method Nasal Cannula Weight: 130 lb 11.746 oz Body Mass Index (BMI) 23.8 Intake and Output for Last 24 Hours 09/19/20 09/20/20 09/21/20 23:59 23:59 23:59 Intake Total 1350 / 1350 1560 / 1560 100 / 100 Output Total 300 / 300 250 / 250 Balance 1350 / 1350 1260 / 1260 -150 / -150 General: Alert, Oriented x3, Cooperative, No apparent distress HEENT: Atraumatic, PERRLA, EOMI, Normocephalic Oral: Moist Mucosa, No Gingival or Mucosal Lesions/ Ulcerations Neck: Supple, No JVD, Negative Carotid Bruits, Trachea Midline, Thyroid Normal Size and Texture Lungs: Clear to auscultation, Normal air movement, No rhonchi, No wheeze, No rales, Diminished Cardiovascular: Regular rate, Regular Rhythm, Normal S1, Normal S2, PMI Normal Abdomen: Bowel Sounds Present, Soft, Non Tender, Non-Distended, No Hepato- splenomegaly Extremities: No clubbing, No cyanosis, No edema Skin: No rashes, No breakdown Lymphatic: No Cervical, Supraclavicular, or Inguinal Adenopathy Neurological: Cranial nerves II-XII grossly intact, Neuro grossly intact Psych/Mental Status: Normal Affect, Appropriate, Alert and oriented to time, place, person, mood and affect Microbiology Past 72 Hours 09/19/20 21:38 Mucosa - Nose Respiratory Panel (PCR) - Final 09/19/20 15:45 Mucosa - Nose SARS-CoV-2 Antigen (Rapid) - Final Laboratory Results 09/20/20 06:28: Diff Path Review Reviewed 09/20/20 09:20: PT 13.9, INR 1.1, D-Dimer Quant (PE/DVT) 2.67 H* 09/20/20 09:20: Total Creatine Kinase 12 L 09/20/20 09:20: Procalcitonin 0.05 Clinical Impression(s) from Imaging Studies Chest X-Ray 09/19/20 16:05 IMPRESSION: Increased peripheral infiltrates suspicious for atypical viral pneumonia. The remainder of the findings appear stable. Electronically Signed: Franklyn Bond DO at 16:31 EST Tel [phone], Service support , Chest CTA 09/19/20 17:12 IMPRESSION: 1. No evidence of pulmonary embolus. 2. No aortic dissection or aneurysm. 3. Left pleural effusion and atelectasis. This appears stable. 4. Diffuse ground glass infiltrates most marked in the right lung. Question COVID 19 pneumonia. 5. Cardiomegaly with pericardial effusion. 6. Abdominal aortic aneurysm. Electronically Signed: Franklyn Bond DO at 18:21 EST Tel [phone], Service support , Current Medications Acetaminophen (Acetaminophen 325 Mg Tablet) 650 mg PO Q6H PRN PRN PRN Reason: Pain Score 1-10/Temp > 100.7 F Al Hydroxide/Mg Hydroxide (Mag Hydrox/Al Hydrox/Simeth 30 Ml Udc) 30 ml PO Q6H PRN PRN PRN Reason: Indigestion, heartburn Albuterol Sulfate (Albuterol Sulfate 8 Gm Inhaler (60 Puffs)) 2 puff INHALATION Q4H PRN PRN PRN Reason: Shortness of breath, wheezing Atenolol (Atenolol 50 Mg Tablet) 50 mg PO DAILY [facility] Last Admin: 09/20/20 09:48 Dose: 50 mg Documented by: Dexamethasone Sodium Phosphate (Dexamethasone 10 Mg/Ml Vial) 6 mg IV DAILY [facility] Last Admin: 09/20/20 09:48 Dose: 6 mg Documented by: Diltiazem HCl (Diltiazem Cd 120 Mg Capsule) 120 mg PO DAILY [facility] Last Admin: 09/20/20 09:48 Dose: 120 mg Documented by: Enoxaparin Sodium (Enoxaparin 30 Mg/0.3 Ml Syringe) 30 mg SC BID [facility] Last Admin: 09/20/20 22:32 Dose: 30 mg Documented by: Sodium Chloride () 250 mls @ 15 mls/hr IV .[id number] PRN PRN Reason: Saline Flush Sodium Chloride () 250 mls @ 15 mls/hr IV .[id number] PRN PRN Reason: Additional IVPB Infusion Remdesivir 100 mg/ Sodium (Chloride) 250 mls @ 125 mls/hr IV DAILY [facility] Stop: 09/24/20 11:59 Morphine Sulfate (Morphine 2 Mg/Ml Syringe) 2 mg IV Q3H PRN PRN PRN Reason: Pain Score 6-10 Last Admin: 09/20/20 22:36 Dose: 2 mg Documented by: Nystatin (Nystatin 500,000 Unit/5 Ml Udc) 500,000 unit PO 4X/DAY [facility] Last Admin: 09/20/20 22:32 Dose: 500,000 unit Documented by: Ondansetron HCl (Ondansetron 4 Mg/2 Ml Vial) 4 mg IV Q8H PRN PRN PRN Reason: NAUSEA/VOMITING Pantoprazole Sodium (Pantoprazole Sodium 40 Mg Tablet) 40 mg PO DAILY [facility] Last Admin: 09/20/20 09:48 Dose: 40 mg Documented by: Polyethylene Glycol (Polyethylene Glycol 3350 17 Gm Packet) 17 gm PO DAILY PRN PRN PRN Reason: Constipation Senna (Senna Tablet) 1 tablet PO BID PRN PRN PRN Reason: Constipation Sertraline HCl (Sertraline 50 Mg Tablet) 50 mg PO DAILY [facility] Last Admin: 09/20/20 09:48 Dose: 50 mg Documented by: Sodium Chloride (0.9% Saline Lock 10 Ml Syringe) 10 - 40 ml IV UD PRN PRN Reason: SALINE FLUSH Medical Necessity - Tobacco Use Smoking Status: Former smoker Tobacco Use: Non-smoker Assessment/Plan All Active Problems High suspicion COVID-19 pneumonia (Acute) This is a 79 years old female patient presented to the emergency room because of shortness of breath and chest pain, found to have peripheral bilateral lung infiltrate on chest x-ray as well as CTA chest, tested negative for COVID-19 antigen and COVID-19 PCR and she was admitted for pneumonia although I think she does have at least high suspicion of COVID-19 pneumonia. #1 high suspicion of acute bilateral COVID-19 pneumonia: She is on IV Decadron and IV remdesivir as well as subcu Lovenox twice daily. IV antibiotics discontinued. She has been on 2 L of oxygen, pulse ox has been around 95%. Patient does use oxygen at home at 2 L as well. Respiratory panel for viruses were negative. Blood cultures pending. Blood work from today was not done yet. Infectious disease on the case. Plan to continue same treatment. 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 EKG without ischemic changes. Troponin is negative. She is on PPI, nystatin swish and swallow and Mylanta as needed. #3 paroxysmal atrial fibrillation: Currently, rate is stable. Continue Cardizem and atenolol for rate control. She is not on anticoagulation. #4 COPD: Currently, she is on 2 L of oxygen. She does use home oxygen at 2 L. She is stable at this time. #5 hypertension: Blood pressure stable, continue atenolol, Cardizem. #6 non-small cell lung cancer: Status post chemotherapy and radiation, stable at this time, recommend follow-up with oncology as outpatient. #7 GERD: Continue PPI. #8 depression: Stable, continue Zoloft #9 DVT prophylaxis: Subcu Lovenox twice daily. This note was generated with [employer] dictation software. It may contain incorrect words, spelling, and punctuation that were not noted in checking the note before signing. Inpatient E&M: 60141 Subs Hosp L2
[2020-09-21] MEDS: NYSTATIN 500,000 UNIT/5 ML UDC 500000 UNIT PO ×4 (09:22→21:30)
[2020-09-21] MEDS: dexAMETHasone 10 MG/ML Vial 6 MG IV (09:22)
[2020-09-21] MEDS: Atenolol 50 MG Tablet PO (09:22)
[2020-09-21] MEDS: Pantoprazole Sodium 40 MG Tablet PO (09:22)
[2020-09-21] MEDS: Enoxaparin 30 MG/0.3 ML Syringe SC ×2 (09:22→21:30)
[2020-09-21] MEDS: Sertraline 50 MG Tablet PO (09:22)
[2020-09-21] MEDS: dilTIAZem CD 120 MG Capsule PO (09:23)
[2020-09-21 10:23] LABS: ALB/GLOB Ratio 0.8 RATIO (0.9-2.4); AST(SGOT) 12 U/L (15-37); Alanine Aminotransfer ALT/SGPT 15 U/L (13-56); Albumin, Serum 2.6 g/dL (3.2-5.0); Alkaline Phosphatase 62 U/L (45-117); Anion Gap 8 (5-15); BUN 17 mg/dL (7-18); BUN/Creat Ratio 26.2 RATIO (10-20); Calcium,Total 9.1 mg/dL (8.5-10.1); Chloride 102 mmol/L (98-107); Creatinine, Serum 0.65 mg/dL (0.55-1.02); EST Glomerular Filtration Rate 93 mL/min (>60); Est Glom Filt Rate - Afr Amer 113 mL/min (>60); Estimated Creatinine Clearance 36.08 ml/min; Globulin 3.4 g/dL (2.2-4.2); Glucose 120 mg/dL (74-106); Potassium 3.2 mmol/L (3.5-5.1); Sodium Level 137 mmol/L (136-145)
[2020-09-21 10:37] LABS: Absolute Lymphocyte Count 0.45 X10^3/uL (0.83-4.51); Absolute Neutrophil Count 4.9 X10^3/uL (2.0-7.7); Basophil# 0.01 X10^3/uL; Basophil% 0.2 % (0-1); Eosinophil# 0.04 X10^3/uL; Eosinophils% 0.7 % (0-5); Hematocrit 32.5 % (37-47); Hemoglobin 10.7 g/dL (12.0-15.0); Lymphocyte # 0.45 X10^3/ul (4.0); Lymphocyte % 7.7 % (19-41); Mean Corp Hgb Conc 32.9 g/dL (32-36); Mean Corpuscular Hgb 29.2 pg (27.0-32.0); Mean Corpuscular Volume 88.6 fL (81-99); Mean Platelet Vol. 10.8 fl (6.2-12.0); Monocyte# 0.42 X10^3/uL; Monocyte% 7.2 % (0-10); NRBC Flagged by Analyzer 0 % (0-5); Neutrophil % 83.3 % (47-70); POSITIVE DIFFERENTIAL YES; Platelet Count 109 K/mm3 (150-450); RBC Distribution Width CV 15.3 % (11.6-14.6); RBC Distribution Width SD 50.2 fl (35.1-43.9); Red Blood Count 3.67 M/mm3 (4.2-5.4); White Blood Count 5.9 K/mm3 (4.4-11.0)
[2020-09-21 10:41] LABS: Differential Indicated SCAN CRITERIA MET
[2020-09-21 10:57] LABS: Vancomycin, Trough Level 3.7 ug/mL (5.0-15.0)
[2020-09-21 11:00] LABS: Differential Comment SCANNED
[2020-09-21] MEDS: Ondansetron 4 MG/2 ML Vial IV (11:00)
[2020-09-21] MEDS: Mag Hydrox/Al Hydrox/Simeth 30 ML UDC PO (11:06)
--- NOTE | 2020-09-21 11:36 | CASEMGMT ---
MASHA AGOSTO NOTE: PT/OT notes reviewed. PT recommend additional therapy/HHC. MASHA AGOSTO spoke with pt. She declines wanting HHC. She was made aware that, if in the future, she feels she would want HHC, to discuss this with her PCP. She voices understanding. Pt reports she is feeling nauseous and her IV is leaking. RNRoman, made aware. Bobbi MACKEY RN, CM
[2020-09-21] MEDS: Morphine 2 MG/ML Syringe IV (21:32)
[2020-09-22] VITALS (11 sets, daily range): BP systolic 108–140; BP diastolic 72–81; PULSE 64–102; RESP 18; TEMP 36.4–36.6; O2SAT 92–98; BMI 23.1
[2020-09-22] MEDS: Morphine 2 MG/ML Syringe IV ×2 (00:57→19:52)
[2020-09-22] MEDS: Atenolol 50 MG Tablet PO (09:50)
[2020-09-22] MEDS: Sertraline 50 MG Tablet PO (09:50)
[2020-09-22] MEDS: Pantoprazole Sodium 40 MG Tablet PO (09:50)
[2020-09-22] MEDS: Enoxaparin 30 MG/0.3 ML Syringe SC ×2 (09:50→19:51)
[2020-09-22] MEDS: NYSTATIN 500,000 UNIT/5 ML UDC 500000 UNIT PO ×4 (09:50→19:52)
[2020-09-22] MEDS: dilTIAZem CD 120 MG Capsule PO (09:50)
[2020-09-22] MEDS: dexAMETHasone 10 MG/ML Vial 6 MG IV (09:50)
--- NOTE | 2020-09-22 09:52 | PN_ITS ---
Subjective: Chief complaint follow-up after admission for clinical acute bilateral COVID-19 pneumonia. Patient seen and examined. No acute events overnight. This morning, she is off oxygen, breathing has been getting better every day. Still complaining of difficulty swallowing and painful swallowing which has been going on for several months. Her vital signs are stable. - Physical Exam Vitals/I&O's: Vital Signs Temp Pulse Resp BP Pulse Ox 97.6 F L 80 18 124/76 H 98 09/22/20 02:29 09/22/20 03:32 09/22/20 02:29 09/22/20 02:29 09/22/20 02:29 Oxygen Flow Rate (L/min) 2 Oxygen Delivery Method Nasal Cannula Weight: 126 lb 1.6 oz Body Mass Index (BMI) 23.8 Intake and Output for Last 24 Hours 09/20/20 09/21/20 09/22/20 23:59 23:59 23:59 Intake Total 1560 / 1560 590 / 590 Output Total 300 / 300 250 / 250 200 / 200 Balance 1260 / 1260 340 / 340 -200 / -200 General: Alert, Oriented x3, No apparent distress HEENT: Atraumatic, PERRLA, EOMI, Normocephalic Oral: Moist Mucosa, No Gingival or Mucosal Lesions/ Ulcerations Neck: Supple, No JVD, Negative Carotid Bruits, Trachea Midline, Thyroid Normal Size and Texture Lungs: Clear to auscultation, Normal air movement, No rhonchi, No wheeze, No rales, Diminished Cardiovascular: Regular rate, Regular Rhythm, Normal S1, Normal S2, No murmurs, PMI Normal Abdomen: Bowel Sounds Present, Soft, Non Tender, Non-Distended, No Hepato- splenomegaly Extremities: No clubbing, No cyanosis, No edema Skin: No rashes, No breakdown Lymphatic: No Cervical, Supraclavicular, or Inguinal Adenopathy Neurological: Cranial nerves II-XII grossly intact, Neuro grossly intact Psych/Mental Status: Normal Affect, Appropriate Microbiology Past 72 Hours 09/19/20 17:10 Blood Culture (Wb) - Femoral Artery Blood Culture - Preliminary No growth in 48 hours. 09/19/20 15:45 Blood Culture (Wb) - Anticubital Right Blood Culture - Preliminary No growth in 48 hours. 09/19/20 21:38 Mucosa - Nose Respiratory Panel (PCR) - Final 09/19/20 15:45 Mucosa - Nose SARS-CoV-2 Antigen (Rapid) - Final Laboratory Results 09/21/20 09:50: Vancomycin Trough 3.7 L 09/21/20 09:50: Sodium 137, Potassium 3.2 L, Chloride 102, Carbon Dioxide 27.0, Anion Gap 8, BUN 17, Creatinine 0.65, Estim Creat Clear Calc 36.08, Est GFR (MDRD) Af Amer 113, Est GFR (MDRD) Non-Af 93, BUN/Creatinine Ratio 26.2 H, Glucose 120 H, Calcium 9.1, Total Bilirubin 0.50, AST 12 L, ALT 15, Alkaline Phosphatase 62, Total Protein 6.0 L, Albumin 2.6 L, Globulin 3.4, Albumin/Globulin Ratio 0.8 L 09/21/20 10:15: WBC 5.9, RBC 3.67 L, Hgb 10.7 L, Hct 32.5 L, MCV 88.6, MCH 29.2, MCHC 32.9, RDW Std Deviation 50.2 H, RDW Coeff of Rashid 15.3 H, Plt Count 109 L, MPV 10.8, Immature Gran % (Auto) 0.900, Neut % (Auto) 83.3 H, Lymph % (Auto) 7.7 L, [place] % (Auto) 7.2, Eos % (Auto) 0.7, Baso % (Auto) 0.2, Absolute Neuts (auto) 4.9, Absolute Lymphs (auto) 0.45 L, Nucleated RBC % 0, Differential Comment SCANNED Current Medications Acetaminophen (Acetaminophen 325 Mg Tablet) 650 mg PO Q6H PRN PRN PRN Reason: Pain Score 1-10/Temp > 100.7 F Al Hydroxide/Mg Hydroxide (Mag Hydrox/Al Hydrox/Simeth 30 Ml Udc) 30 ml PO Q6H PRN PRN PRN Reason: Indigestion, heartburn Last Admin: 09/21/20 11:06 Dose: 30 ml Documented by: Albuterol Sulfate (Albuterol Sulfate 18 Gm Inhaler (200 Puffs)) 2 puff IH Q4H PRN PRN PRN Reason: Shortness of breath, wheezing Last Admin: 09/21/20 22:57 Dose: 2 puff Documented by: Atenolol (Atenolol 50 Mg Tablet) 50 mg PO DAILY [facility] Last Admin: 09/22/20 09:50 Dose: 50 mg Documented by: Dexamethasone Sodium Phosphate (Dexamethasone 10 Mg/Ml Vial) 6 mg IV DAILY [facility] Last Admin: 09/22/20 09:50 Dose: 6 mg Documented by: Diltiazem HCl (Diltiazem Cd 120 Mg Capsule) 120 mg PO DAILY [facility] Last Admin: 09/22/20 09:50 Dose: 120 mg Documented by: Enoxaparin Sodium (Enoxaparin 30 Mg/0.3 Ml Syringe) 30 mg SC BID [facility] Last Admin: 09/22/20 09:50 Dose: 30 mg Documented by: Sodium Chloride () 250 mls @ 15 mls/hr IV .[id number] PRN PRN Reason: Saline Flush Sodium Chloride () 250 mls @ 15 mls/hr IV .[id number] PRN PRN Reason: Additional IVPB Infusion Remdesivir 100 mg/ Sodium (Chloride) 250 mls @ 125 mls/hr IV DAILY [facility] Stop: 09/24/20 11:59 Last Infusion: 09/21/20 14:39 Dose: Infused Documented by: Miscellaneous Information (Inhaler, Assist Devices 1 Each Spacer) 1 each INHALATION PRN PRN PRN Reason: WITH ALBUTEROL INHALER Morphine Sulfate (Morphine 2 Mg/Ml Syringe) 2 mg IV Q3H PRN PRN PRN Reason: Pain Score 6-10 Last Admin: 09/22/20 00:57 Dose: 2 mg Documented by: Nystatin (Nystatin 500,000 Unit/5 Ml Udc) 500,000 unit PO 4X/DAY [facility] Last Admin: 09/22/20 09:50 Dose: 500,000 unit Documented by: Ondansetron HCl (Ondansetron 4 Mg/2 Ml Vial) 4 mg IV Q8H PRN PRN PRN Reason: NAUSEA/VOMITING Last Admin: 09/21/20 11:00 Dose: 4 mg Documented by: Pantoprazole Sodium (Pantoprazole Sodium 40 Mg Tablet) 40 mg PO DAILY [facility] Last Admin: 09/22/20 09:50 Dose: 40 mg Documented by: Polyethylene Glycol (Polyethylene Glycol 3350 17 Gm Packet) 17 gm PO DAILY PRN PRN PRN Reason: Constipation Senna (Senna Tablet) 1 tablet PO BID PRN PRN PRN Reason: Constipation Sertraline HCl (Sertraline 50 Mg Tablet) 50 mg PO DAILY [facility] Last Admin: 09/22/20 09:50 Dose: 50 mg Documented by: Sodium Chloride (0.9% Saline Lock 10 Ml Syringe) 10 - 40 ml IV UD PRN PRN Reason: SALINE FLUSH Medical Necessity - Tobacco Use Smoking Status: Former smoker Tobacco Use: Non-smoker Assessment/Plan All Active Problems Clinical COVID-19 pneumonia (Acute) This is a 79 years old female patient presented to the emergency room because of shortness of breath and chest pain, found to have peripheral bilateral lung infiltrate on chest x-ray as well as CTA chest, tested negative for COVID-19 antigen and COVID-19 PCR and she was admitted for pneumonia although I think she does have clinical COVID-19 pneumonia. #1 Clinical acute bilateral COVID-19 pneumonia: Remained on IV Decadron and IV remdesivir as well as subcu Lovenox twice daily. IV antibiotics discontinued. She has been on 2 L of oxygen and this morning, she is off oxygen. Patient does use home oxygen at 2 L. Respiratory panel for viruses were negative. Blood cultures showed no growth in 48 hours. Infectious disease on the case. Plan to continue same treatment, repeat CBC and CMP tomorrow morning. 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 EKG without ischemic changes. Troponin is negative. She is on PPI, nystatin swish and swallow and Mylanta as needed. She is already on IV Decadron as well. Patient still symptomatic, having difficulty swallowing because of pain. I will discuss the case with Dr. Cosme. #3 paroxysmal atrial fibrillation: Currently, rate is stable. Continue Cardizem and atenolol for rate control. She is not on anticoagulation. #4 COPD: Currently, she is on home at this morning. She does use home oxygen at 2 L. She is stable at this time. #5 hypertension: Blood pressure stable, continue atenolol, Cardizem. #6 non-small cell lung cancer: Status post chemotherapy and radiation, stable at this time, recommend follow-up with oncology as outpatient. #7 GERD: Continue PPI. #8 depression: Stable, continue Zoloft #9 DVT prophylaxis: Subcu Lovenox twice daily. This note was generated with [employer] software. It may contain incorrect words, spelling, and punctuation that were not noted in checking the note before signing. Inpatient E&M: 51891 Subs Hosp L2
--- NOTE | 2020-09-22 11:22 | NT.THERAPY_ITS ---
Nutrition Therapy Report - History Nutrition Services has been consulted to:: Manage nutrient details of diet order Current diet / nutrition support order:: regular; ensure enlive BID, ensure clear w/ lunch - Anthropometric Measurements Height:: 5 ft 2 in Weight:: 57.198 kg Body Mass Index (BMI):: 23.1 - Relevant Labs Relevant Labs:: WBC 3.3 K/mm3 (4.4-11.0) L 09/20/20 06:28 RBC 3.67 M/mm3 (4.2-5.4) L 09/21/20 10:15 Hgb 10.7 g/dL (12.0-15.0) L 09/21/20 10:15 Hct 32.5 % (37-47) L 09/21/20 10:15 RDW Std Deviation 50.2 fl (35.1-43.9) H 09/21/20 10:15 RDW Coeff of Rashid 15.3 % (11.6-14.6) H 09/21/20 10:15 Plt Count 109 K/mm3 (150-450) L 09/21/20 10:15 Neut % (Auto) 83.3 % (47-70) H 09/21/20 10:15 Lymph % (Auto) 7.7 % (19-41) L 09/21/20 10:15 Absolute Lymphs (auto) 0.45 X10^3/uL (0.83-4.51) L 09/21/20 10:15 D-Dimer Quant (PE/DVT) 2.67 FEU/ug/m (0.27-0.49) H* 09/20/20 09:20 Sodium 131 mmol/L (136-145) L 09/20/20 06:28 Potassium 3.2 mmol/L (3.5-5.1) L 09/21/20 09:50 Creatinine 0.54 mg/dL (0.55-1.02) L 09/20/20 06:28 BUN/Creatinine Ratio 26.2 RATIO (10-20) H 09/21/20 09:50 Glucose 120 mg/dL (74-106) H 09/21/20 09:50 Calcium 8.3 mg/dL (8.5-10.1) L 09/20/20 06:28 AST 12 U/L (15-37) L 09/21/20 09:50 Total Creatine Kinase 12 U/L (26-192) L 09/20/20 09:20 Total Protein 6.0 g/dL (6.4-8.2) L 09/21/20 09:50 Albumin 2.6 g/dL (3.2-5.0) L 09/21/20 09:50 Albumin/Globulin Ratio 0.8 RATIO (0.9-2.4) L 09/21/20 09:50 - Assessment Food / Nutrition-Related History:: Spoke w/ pt via room phone. Eating poorly at meals. Complains of severe difficulty swallowing and states she is struggling, even w/ soft foods. 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 Pt states wt was ~165# in March, CBW down to 126.1#- 38.9#/23% wt loss < 1 year, significant for chronic malnutrition. Of note, pt w/ 6.4#/4.8% wt loss since admission, also significant for acute malnutrition. - Nutrition Diagnosis Problem / Etiology / Signs & Symptoms (PES):: Pt w/ acute on chronic severe malnutrition related to inadequate energy intake, swallowing difficulty as evidenced by estimated PO intake meeting less than 75% of needs for >3 months and less than 50% of estimated needs over past ~5 days during acute illness, wt loss of 8.9#/23% < 1 year and 6.4#/4.8% since admission. Evidence of Malnutrition Exists:: Yes Severe PCM:: Chronic Illness - Food / Nutrient Delivery Interventions Summary of nutrition intervention:: Discussed ONS w/ pt- she does not like Ensure Clear. Agreeable to Ensure Enlive TID w/ meals. Pt states she is lactose- free. Agreeable to trying Ensure Pudding w/ lunch today, would prefer vanilla flavor. States she likes cream of wheat w/ brown sugar in the AM. Will add Beneprotein 1 scoop to hot cereals at breakfast. Pt agreeable to SPECIAL EDUCATION PARAPROFESSIONAL consult. Will order. Nutrition support ordered as / adjusted to:: SPECIAL EDUCATION PARAPROFESSIONAL consulted. Continue regular diet d/t malnutrition- consistency per SPECIAL EDUCATION PARAPROFESSIONAL. Will change ensure to ensure enlive w/ all meals. Will add ensure pudding w/ lunch and dinner; 1 scoop beneprotein w/ hot cereals at breakfast. Nutrition education provided?: Yes - MNT Monitoring Further MNT monitoring and evaluation required?: Yes MNT Follow-up in:: 3-5 days
--- NOTE | 2020-09-22 13:46 | CASEMGMT ---
MASHA AGOSTO Note: call to room to speak with pt re: dc needs. Patient refused PT today and is declining Home Care. Patient still is declining home care and states she is ambulating with her walker. Pt states her daughter will be able to assist her. RN SURENDRA asked to contact daughter and patient declined. -call to [facility]. Verified patient has concentrator, portability and is on 2L NC. DC plan is home. Foster MACKEY RN AC
--- NOTE | 2020-09-22 14:43 | PCM.PN.ID ---
Subjective: Feeling better, but still a lot of difficulty swallowing and keeping food down - Physical Exam Vitals/I&O's: Vital Signs Temp Pulse Resp BP Pulse Ox 97.9 F 78 18 108/72 93 09/22/20 10:30 09/22/20 10:30 09/22/20 10:30 09/22/20 10:30 09/22/20 10:30 Oxygen Flow Rate (L/min) 2 Oxygen Delivery Method Room Air Weight: 57.198 kg Body Mass Index (BMI) 23.1 Intake and Output for Last 24 Hours 09/20/20 09/21/20 09/22/20 23:59 23:59 23:59 Intake Total 1560 / 1560 590 / 590 Output Total 300 / 300 250 / 250 200 / 200 Balance 1260 / 1260 340 / 340 -200 / -200 General: Alert, Cooperative, No apparent distress Lungs: Clear to auscultation, Normal air movement Cardiovascular: Regular rate, Regular Rhythm Abdomen: Soft, Non Tender, Non-Distended Skin: No rashes Microbiology Past 72 Hours 09/19/20 17:10 Blood Culture (Wb) - Femoral Artery Blood Culture - Preliminary No growth in 48 hours. 09/19/20 15:45 Blood Culture (Wb) - Anticubital Right Blood Culture - Preliminary No growth in 48 hours. 09/19/20 21:38 Mucosa - Nose Respiratory Panel (PCR) - Final 09/19/20 15:45 Mucosa - Nose SARS-CoV-2 Antigen (Rapid) - Final Current Medications Acetaminophen (Acetaminophen 325 Mg Tablet) 650 mg PO Q6H PRN PRN PRN Reason: Pain Score 1-10/Temp > 100.7 F Al Hydroxide/Mg Hydroxide (Mag Hydrox/Al Hydrox/Simeth 30 Ml Udc) 30 ml PO Q6H PRN PRN PRN Reason: Indigestion, heartburn Last Admin: 09/21/20 11:06 Dose: 30 ml Documented by: Albuterol Sulfate (Albuterol Sulfate 18 Gm Inhaler (200 Puffs)) 2 puff IH Q4H PRN PRN PRN Reason: Shortness of breath, wheezing Last Admin: 09/22/20 10:43 Dose: 2 puff Documented by: Atenolol (Atenolol 50 Mg Tablet) 50 mg PO DAILY [facility] Last Admin: 09/22/20 09:50 Dose: 50 mg Documented by: Dexamethasone Sodium Phosphate (Dexamethasone 10 Mg/Ml Vial) 6 mg IV DAILY [facility] Last Admin: 09/22/20 09:50 Dose: 6 mg Documented by: Diltiazem HCl (Diltiazem Cd 120 Mg Capsule) 120 mg PO DAILY [facility] Last Admin: 09/22/20 09:50 Dose: 120 mg Documented by: Enoxaparin Sodium (Enoxaparin 30 Mg/0.3 Ml Syringe) 30 mg SC BID [facility] Last Admin: 09/22/20 09:50 Dose: 30 mg Documented by: Sodium Chloride () 250 mls @ 15 mls/hr IV .[id number] PRN PRN Reason: Saline Flush Sodium Chloride () 250 mls @ 15 mls/hr IV .[id number] PRN PRN Reason: Additional IVPB Infusion Remdesivir 100 mg/ Sodium (Chloride) 250 mls @ 125 mls/hr IV DAILY [facility] Stop: 09/24/20 11:59 Last Admin: 09/22/20 10:32 Dose: 125 mls/hr Documented by: Miscellaneous Information (Inhaler, Assist Devices 1 Each Spacer) 1 each INHALATION PRN PRN PRN Reason: WITH ALBUTEROL INHALER Morphine Sulfate (Morphine 2 Mg/Ml Syringe) 2 mg IV Q3H PRN PRN PRN Reason: Pain Score 6-10 Last Admin: 09/22/20 00:57 Dose: 2 mg Documented by: Nystatin (Nystatin 500,000 Unit/5 Ml Udc) 500,000 unit PO 4X/DAY [facility] Last Admin: 09/22/20 09:50 Dose: 500,000 unit Documented by: Ondansetron HCl (Ondansetron 4 Mg/2 Ml Vial) 4 mg IV Q8H PRN PRN PRN Reason: NAUSEA/VOMITING Last Admin: 09/21/20 11:00 Dose: 4 mg Documented by: Pantoprazole Sodium (Pantoprazole Sodium 40 Mg Tablet) 40 mg PO DAILY [facility] Last Admin: 09/22/20 09:50 Dose: 40 mg Documented by: Polyethylene Glycol (Polyethylene Glycol 3350 17 Gm Packet) 17 gm PO DAILY PRN PRN PRN Reason: Constipation Senna (Senna Tablet) 1 tablet PO BID PRN PRN PRN Reason: Constipation Sertraline HCl (Sertraline 50 Mg Tablet) 50 mg PO DAILY [facility] Last Admin: 09/22/20 09:50 Dose: 50 mg Documented by: Sodium Chloride (0.9% Saline Lock 10 Ml Syringe) 10 - 40 ml IV UD PRN PRN Reason: SALINE FLUSH Medical Necessity - Tobacco Use Smoking Status: Former smoker Tobacco Use: Non-smoker Route of nutrition/ use of supplements: [] Nutritional Intake: [] IV Site: [] [place] Catheter: [] - Assessment/Plan Antibiotics: [] Assessment/Plan: [] suspected covid with groundglass changes on CT, elevated d-dimer, lymphopenia. Cont remdesivir and dex for now. Covid pcr and Ag neg. Feeling better, but chronic issues with her esophagus. Ok to stop steroids at discharge. Quarantine for 20 days total. Will follow as needed
[2020-09-22] MEDS: Metoprolol Tartrate 5 MG/5 ML Vial IV (19:53)
[2020-09-22] MEDS: MELATONIN 3 MG TABLET PO (21:10)
[2020-09-22] MEDS: dilTIAZem 60 MG Tablet PO (21:47)
[2020-09-23] VITALS (13 sets, daily range): BP systolic 114–138; BP diastolic 72–86; PULSE 60–110; RESP 16–17; TEMP 36.4–36.7; O2SAT 96–99
[2020-09-23] MEDS: Senna Tablet 1 TABLET PO (02:14)
[2020-09-23] MEDS: Morphine 2 MG/ML Syringe IV ×2 (02:32→21:55)
[2020-09-23 06:03] LABS: Absolute Lymphocyte Count 0.39 X10^3/uL (0.83-4.51); Absolute Neutrophil Count 3.1 X10^3/uL (2.0-7.7); Hematocrit 30.6 % (37-47); Hemoglobin 10.2 g/dL (12.0-15.0); Lymphocyte # 0.39 X10^3/ul (4.0); Lymphocyte % 10.4 % (19-41); Mean Corp Hgb Conc 33.3 g/dL (32-36); Mean Corpuscular Hgb 30.1 pg (27.0-32.0); Mean Corpuscular Volume 90.3 fL (81-99); Mean Platelet Vol. 10.8 fl (6.2-12.0); Monocyte# 0.28 X10^3/uL; Monocyte% 7.4 % (0-10); NRBC Flagged by Analyzer 0 % (0-5); Neutrophil # 3.07 X10^3/uL (2.7-7.7); Neutrophil % 81.7 % (47-70); POSITIVE DIFFERENTIAL YES; Platelet Count 111 K/mm3 (150-450); RBC Distribution Width CV 15.2 % (11.6-14.6); RBC Distribution Width SD 50.4 fl (35.1-43.9); Red Blood Count 3.39 M/mm3 (4.2-5.4); White Blood Count 3.8 K/mm3 (4.4-11.0)
[2020-09-23 06:06] LABS: Differential Indicated SCAN CRITERIA MET
[2020-09-23 06:40] LABS: ALB/GLOB Ratio 0.8 RATIO (0.9-2.4); AST(SGOT) 12 U/L (15-37); Alanine Aminotransfer ALT/SGPT 14 U/L (13-56); Albumin, Serum 2.4 g/dL (3.2-5.0); Alkaline Phosphatase 54 U/L (45-117); Anion Gap 6 (5-15); BUN 26 mg/dL (7-18); BUN/Creat Ratio 46.4 RATIO (10-20); Calcium,Total 8.6 mg/dL (8.5-10.1); Chloride 103 mmol/L (98-107); Creatinine, Serum 0.56 mg/dL (0.55-1.02); EST Glomerular Filtration Rate 111 mL/min (>60); Est Glom Filt Rate - Afr Amer 134 mL/min (>60); Estimated Creatinine Clearance 36.08 ml/min; Globulin 2.9 g/dL (2.2-4.2); Glucose 151 mg/dL (74-106); Potassium 3.9 mmol/L (3.5-5.1); Protein, Total 5.3 g/dL (6.4-8.2); Sodium Level 137 mmol/L (136-145)
[2020-09-23 06:53] LABS: Differential Comment SCANNED
--- NOTE | 2020-09-23 07:24 | CON.PCM_ITS ---
Problem List (1) Dysphagia Status: Acute Qualifiers: Dysphagia type: esophageal phase Qualified Code(s): R13.10 - Dysphagia, unspecified Reason for Consult Date of Consultation: 09/23/20 Reason for Consultation: Dysphagia with possible esophagitis from radiation History of Present Illness: The patient is a 79 year old F here with possible Covid pneumonia that is also undergoing chemoradiation for lung carcinoma. 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 Patient notes that she is able to tolerate liquids and some solids but she feels full throughout the day and by the end of the day feels nauseous. She is able to tolerate her secretions and does not have any nausea at baseline. Past Medical History Past Medical History (Chronic Problems): Chronic Problems Non-small cell lung cancer (NSCLC) (Chronic) HTN (hypertension) (Chronic) GERD (gastroesophageal reflux disease) (Chronic) COPD (chronic obstructive pulmonary disease) (Chronic) PAF (paroxysmal atrial fibrillation) (Chronic) Depression (Chronic) Allergies codeine Adverse Reaction (Verified 09/19/20 14:58) Abd cramps/diarrhea Home Medications: Ambulatory Orders Medication Instructions Recorded Albuterol Inhaler [Ventolin Hfa] 1 - 2 puff INHALATION Q4H PRN PRN 08/21/20 Atenolol [Tenormin] 50 mg PO DAILY 08/21/20 Dexamethasone [Decadron] 2 mg PO QODAY 08/21/20 Diltiazem HCl [Cardizem] 120 mg PO DAILY 08/21/20 Enoxaparin Sodium [Lovenox] 40 mg SQ DAILY 08/21/20 Ipratropium/Albuterol Respimat 1 puff INHALATION 4X/DAY 08/21/20 [Combivent Respimat Inhal [place]] Nystatin 5 ml PO 4X/DAY 08/21/20 Ondansetron [Zofran] 8 mg PO Q8H PRN PRN 08/21/20 Polyethylene Glycol 3350 [Miralax] 17 gm PO PRN PRN 08/21/20 Senna [Senokot] 1 tab PO PRN PRN 08/21/20 Omeprazole 40 mg PO DAILY 09/19/20 Sertraline HCl 50 mg PO DAILY 09/19/20 Surgical History: noncontributory Psychiatric History: No pertinent psych hx [employer] History: No pertinent [employer] history Lives: Spouse/ Significant Other Smoking Status: Former smoker Tobacco Use: Non-smoker Alcohol: None Drugs: None - *Family History Maternal History Items: Heart Disease Review of Systems Constitutional: Denies: Anorexia, Fever HEENT: Reports: Dysphasia Cardiovascular: Denies: Chest Pain Respiratory: Denies: Shortness of Breath Gastrointestinal: Reports: Nausea, Vomiting. Denies: Abdominal Pain, Constipation, Diarrhea, Hematemesis, Hematochezia, Melena Genitourinary: Denies: Dysuria Musculoskeletal: Denies: Joint Tenderness Neurological: Denies: Blurred vision Psychiatric: Denies: Anxiety Hematologic/ Lymphatic: Denies: Anemia - Physical Exam Vitals/I&O's: Vital Signs Temp Pulse Resp BP Pulse Ox 97.6 F L 63 16 114/72 96 09/23/20 02:00 09/23/20 04:20 09/23/20 02:00 09/23/20 02:00 09/23/20 02:00 Oxygen Flow Rate (L/min) 2 Oxygen Delivery Method Nasal Cannula Weight: 126 lb 5.198 oz Body Mass Index (BMI) 23.1 Intake and Output for Last 24 Hours 09/21/20 09/22/20 09/23/20 23:59 23:59 23:59 Intake Total 590 / 590 250 / 250 Output Total 250 / 250 200 / 200 250 / 250 Balance 340 / 340 50 / 50 -250 / -250 General: Alert, Oriented x3 Neck: No JVD Lungs: Normal air movement Cardiovascular: Regular rate, Regular Rhythm Abdomen: Soft, Non Tender, Non-Distended Microbiology Past 72 Hours 09/19/20 17:10 Blood Culture (Wb) - Femoral Artery Blood Culture - Preliminary No growth in 48 hours. 09/19/20 15:45 Blood Culture (Wb) - Anticubital Right Blood Culture - Preliminary No growth in 48 hours. Laboratory Results 09/23/20 05:28: WBC 3.8 L, RBC 3.39 L, Hgb 10.2 L, Hct 30.6 L, MCV 90.3, MCH 30.1, MCHC 33.3, RDW Std Deviation 50.4 H, RDW Coeff of Rashid 15.2 H, Plt Count 111 L, MPV 10.8, Immature Gran % (Auto) 0.500, Neut % (Auto) 81.7 H, Lymph % (Auto) 10.4 L, [place] % (Auto) 7.4, Eos % (Auto) 0.0, Baso % (Auto) 0.0, Absolute Neuts (auto) 3.1, Absolute Lymphs (auto) 0.39 L, Nucleated RBC % 0, Differential Comment SCANNED, Diff Path Review December09/23/20 05:28: Sodium 137, Potassium 3.9, Chloride 103, Carbon Dioxide 28.0, Anion Gap 6, BUN 26 H, Creatinine 0.56, Estim Creat Clear Calc 36.08, Est GFR (MDRD) Af Amer 134, Est GFR (MDRD) Non-Af 111, BUN/Creatinine Ratio 46.4 H, Glucose 151 H, Calcium 8.6, Total Bilirubin 0.50, AST 12 L, ALT 14, Alkaline Phosphatase 54, Total Protein 5.3 L, Albumin 2.4 L, Globulin 2.9, Albumin/Globulin Ratio 0.8 L Current Medications Acetaminophen (Acetaminophen 325 Mg Tablet) 650 mg PO Q6H PRN PRN PRN Reason: Pain Score 1-10/Temp > 100.7 F Al Hydroxide/Mg Hydroxide (Mag Hydrox/Al Hydrox/Simeth 30 Ml Udc) 30 ml PO Q6H PRN PRN PRN Reason: Indigestion, heartburn Last Admin: 09/21/20 11:06 Dose: 30 ml Documented by: Albuterol Sulfate (Albuterol Sulfate 18 Gm Inhaler (200 Puffs)) 2 puff IH Q4H PRN PRN PRN Reason: Shortness of breath, wheezing Last Admin: 09/22/20 15:35 Dose: 2 puff Documented by: Atenolol (Atenolol 50 Mg Tablet) 50 mg PO DAILY [facility] Last Admin: 09/22/20 09:50 Dose: 50 mg Documented by: Dexamethasone Sodium Phosphate (Dexamethasone 10 Mg/Ml Vial) 6 mg IV DAILY [facility] Last Admin: 09/22/20 09:50 Dose: 6 mg Documented by: Diltiazem HCl (Diltiazem Cd 120 Mg Capsule) 120 mg PO DAILY [facility] Last Admin: 09/22/20 09:50 Dose: 120 mg Documented by: Enoxaparin Sodium (Enoxaparin 30 Mg/0.3 Ml Syringe) 30 mg SC BID [facility] Last Admin: 09/22/20 19:51 Dose: 30 mg Documented by: Sodium Chloride () 250 mls @ 15 mls/hr IV .[id number] PRN PRN Reason: Saline Flush Sodium Chloride () 250 mls @ 15 mls/hr IV .[id number] PRN PRN Reason: Additional IVPB Infusion Remdesivir 100 mg/ Sodium (Chloride) 250 mls @ 125 mls/hr IV DAILY [facility] Stop: 09/24/20 11:59 Last Infusion: 09/22/20 12:32 Dose: Infused Documented by: Melatonin (Melatonin 3 Mg Tablet) 3 mg PO QHS PRN PRN Reason: insomnia Last Admin: 09/22/20 21:10 Dose: 3 mg Documented by: Miscellaneous Information (Inhaler, Assist Devices 1 Each Spacer) 1 each INHALATION PRN PRN PRN Reason: WITH ALBUTEROL INHALER Morphine Sulfate (Morphine 2 Mg/Ml Syringe) 2 mg IV Q3H PRN PRN PRN Reason: Pain Score 6-10 Last Admin: 09/23/20 02:32 Dose: 2 mg Documented by: Nystatin (Nystatin 500,000 Unit/5 Ml Udc) 500,000 unit PO 4X/DAY [facility] Last Admin: 09/22/20 19:52 Dose: 500,000 unit Documented by: Ondansetron HCl (Ondansetron 4 Mg/2 Ml Vial) 4 mg IV Q8H PRN PRN PRN Reason: NAUSEA/VOMITING Last Admin: 09/21/20 11:00 Dose: 4 mg Documented by: Pantoprazole Sodium (Pantoprazole Sodium 40 Mg Tablet) 40 mg PO DAILY [facility] Last Admin: 09/22/20 09:50 Dose: 40 mg Documented by: Polyethylene Glycol (Polyethylene Glycol 3350 17 Gm Packet) 17 gm PO DAILY PRN PRN PRN Reason: Constipation Senna (Senna Tablet) 1 tablet PO BID PRN PRN PRN Reason: Constipation Last Admin: 09/23/20 02:14 Dose: 1 tablet Documented by: Sertraline HCl (Sertraline 50 Mg Tablet) 50 mg PO DAILY [facility] Last Admin: 09/22/20 09:50 Dose: 50 mg Documented by: Sodium Chloride (0.9% Saline Lock 10 Ml Syringe) 10 - 40 ml IV UD PRN PRN Reason: SALINE FLUSH Assessment/Plan All Active Problems Dysphagia (Acute) Clinical COVID-19 pneumonia (Acute) 79-year-old female with 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 Patient has been receiving radiation to this area and feels that things are getting stuck. At this time the patient is tolerating liquids. 2. I discussed treatment with her. The patient may have compression or radiation esophagitis. Given her Covid pneumonia I believe an EGD is not worth the risk. The patient says that she is able to tolerate liquids and I encouraged her to drink more water and Ensure shakes to keep her nutritional status optimized. If she is unable to tolerate enough liquids to keep hydrated and keep nutritionally optimized I would recommend a CorPak at this time. I discussed this with her and she is reluctant to place a CorPak. I discussed PEG tube with her at a later date once the pneumonia is resolved and she is reluctant to agree to a PEG tube as well. I have added Carafate and I would like this crushed and dissolved first to coat the lining of the esophagus and she is already on nystatin and a PPI. Melecio Denny MD Pager: [facility] [address] [place] [address], [address] [place] [address] Office:
--- NOTE | 2020-09-23 08:28 | PN_ITS ---
Patient Problems: Active and Suspected Problems Dysphagia (Acute) Subjective: Chief complaint follow-up after admission for clinical acute bilateral COVID-19 pneumonia and dysphagia. Patient seen and examined. Yesterday evening, she went into A. fib with RVR, received 1 dose of IV metoprolol. Today, heart rate stable. Respiratory status has been stable, remains on 2 L of oxygen. Denied worsening shortness of breath. Patient refused to have CorPak for feeding, reluctant to go for PEG tube. General surgery consulted and at this time, upper EGD is risky because of the Covid. Her vital signs are stable, afebrile, pulse ox is maintained on 2 L of oxygen. - Physical Exam Vitals/I&O's: Vital Signs Temp Pulse Resp BP Pulse Ox 97.6 F L 63 16 114/72 96 09/23/20 02:00 09/23/20 04:20 09/23/20 02:00 09/23/20 02:00 09/23/20 02:00 Oxygen Flow Rate (L/min) 2 Oxygen Delivery Method Nasal Cannula Weight: 126 lb 5.198 oz Body Mass Index (BMI) 23.1 Intake and Output for Last 24 Hours 09/21/20 09/22/20 09/23/20 23:59 23:59 23:59 Intake Total 590 / 590 250 / 250 Output Total 250 / 250 200 / 200 250 / 250 Balance 340 / 340 50 / 50 -250 / -250 General: Alert, Oriented x3, Cooperative, No apparent distress HEENT: Atraumatic, PERRLA, EOMI, Normocephalic Oral: Moist Mucosa, No Gingival or Mucosal Lesions/ Ulcerations Neck: Supple, No JVD, Negative Carotid Bruits, Trachea Midline, Thyroid Normal Size and Texture Lungs: Clear to auscultation, No rhonchi, No wheeze, No rales, Diminished Cardiovascular: Regular rate, Regular Rhythm, Normal S1, Normal S2 Abdomen: Bowel Sounds Present, Soft, Non Tender, Non-Distended, No Hepato- splenomegaly Extremities: No clubbing, No cyanosis, No edema Skin: No rashes, No breakdown Lymphatic: No Cervical, Supraclavicular, or Inguinal Adenopathy Neurological: Cranial nerves II-XII grossly intact, Neuro grossly intact Psych/Mental Status: Normal Affect, Appropriate, Alert and oriented to time, place, person, mood and affect Microbiology Past 72 Hours 09/19/20 17:10 Blood Culture (Wb) - Femoral Artery Blood Culture - Preliminary No growth in 48 hours. 09/19/20 15:45 Blood Culture (Wb) - Anticubital Right Blood Culture - Preliminary No growth in 48 hours. Laboratory Results 09/23/20 05:28: WBC 3.8 L, RBC 3.39 L, Hgb 10.2 L, Hct 30.6 L, MCV 90.3, MCH 30.1, MCHC 33.3, RDW Std Deviation 50.4 H, RDW Coeff of Rashid 15.2 H, Plt Count 111 L, MPV 10.8, Immature Gran % (Auto) 0.500, Neut % (Auto) 81.7 H, Lymph % (Auto) 10.4 L, [place] % (Auto) 7.4, Eos % (Auto) 0.0, Baso % (Auto) 0.0, Absolute Neuts (auto) 3.1, Absolute Lymphs (auto) 0.39 L, Nucleated RBC % 0, Differential Comment SCANNED, Diff Path Review December foll 09/23/20 05:28: Sodium 137, Potassium 3.9, Chloride 103, Carbon Dioxide 28.0, Anion Gap 6, BUN 26 H, Creatinine 0.56, Estim Creat Clear Calc 36.08, Est GFR (MDRD) Af Amer 134, Est GFR (MDRD) Non-Af 111, BUN/Creatinine Ratio 46.4 H, Glucose 151 H, Calcium 8.6, Total Bilirubin 0.50, AST 12 L, ALT 14, Alkaline Phosphatase 54, Total Protein 5.3 L, Albumin 2.4 L, Globulin 2.9, Albumin/Globulin Ratio 0.8 L Current Medications Acetaminophen (Acetaminophen 325 Mg Tablet) 650 mg PO Q6H PRN PRN PRN Reason: Pain Score 1-10/Temp > 100.7 F Al Hydroxide/Mg Hydroxide (Mag Hydrox/Al Hydrox/Simeth 30 Ml Udc) 30 ml PO Q6H PRN PRN PRN Reason: Indigestion, heartburn Last Admin: 09/21/20 11:06 Dose: 30 ml Documented by: Albuterol Sulfate (Albuterol Sulfate 18 Gm Inhaler (200 Puffs)) 2 puff IH Q4H PRN PRN PRN Reason: Shortness of breath, wheezing Last Admin: 09/22/20 15:35 Dose: 2 puff Documented by: Atenolol (Atenolol 50 Mg Tablet) 50 mg PO DAILY [facility] Last Admin: 09/22/20 09:50 Dose: 50 mg Documented by: Dexamethasone Sodium Phosphate (Dexamethasone 10 Mg/Ml Vial) 6 mg IV DAILY [facility] Last Admin: 09/22/20 09:50 Dose: 6 mg Documented by: Diltiazem HCl (Diltiazem Cd 120 Mg Capsule) 120 mg PO DAILY [facility] Last Admin: 09/22/20 09:50 Dose: 120 mg Documented by: Enoxaparin Sodium (Enoxaparin 30 Mg/0.3 Ml Syringe) 30 mg SC BID [facility] Last Admin: 09/22/20 19:51 Dose: 30 mg Documented by: Sodium Chloride () 250 mls @ 15 mls/hr IV .[id number] PRN PRN Reason: Saline Flush Sodium Chloride () 250 mls @ 15 mls/hr IV .[id number] PRN PRN Reason: Additional IVPB Infusion Remdesivir 100 mg/ Sodium (Chloride) 250 mls @ 125 mls/hr IV DAILY [facility] Stop: 09/24/20 11:59 Last Infusion: 09/22/20 12:32 Dose: Infused Documented by: Melatonin (Melatonin 3 Mg Tablet) 3 mg PO QHS PRN PRN Reason: insomnia Last Admin: 09/22/20 21:10 Dose: 3 mg Documented by: Miscellaneous Information (Inhaler, Assist Devices 1 Each Spacer) 1 each INHALATION PRN PRN PRN Reason: WITH ALBUTEROL INHALER Morphine Sulfate (Morphine 2 Mg/Ml Syringe) 2 mg IV Q3H PRN PRN PRN Reason: Pain Score 6-10 Last Admin: 09/23/20 02:32 Dose: 2 mg Documented by: Nystatin (Nystatin 500,000 Unit/5 Ml Udc) 500,000 unit PO 4X/DAY [facility] Last Admin: 09/22/20 19:52 Dose: 500,000 unit Documented by: Ondansetron HCl (Ondansetron 4 Mg/2 Ml Vial) 4 mg IV Q8H PRN PRN PRN Reason: NAUSEA/VOMITING Last Admin: 09/21/20 11:00 Dose: 4 mg Documented by: Pantoprazole Sodium (Pantoprazole Sodium 40 Mg Tablet) 40 mg PO DAILY [facility] Last Admin: 09/22/20 09:50 Dose: 40 mg Documented by: Polyethylene Glycol (Polyethylene Glycol 3350 17 Gm Packet) 17 gm PO DAILY PRN PRN PRN Reason: Constipation Senna (Senna Tablet) 1 tablet PO BID PRN PRN PRN Reason: Constipation Last Admin: 09/23/20 02:14 Dose: 1 tablet Documented by: Sertraline HCl (Sertraline 50 Mg Tablet) 50 mg PO DAILY [facility] Last Admin: 09/22/20 09:50 Dose: 50 mg Documented by: Sodium Chloride (0.9% Saline Lock 10 Ml Syringe) 10 - 40 ml IV UD PRN PRN Reason: SALINE FLUSH Sucralfate (Sucralfate 1 Gm Tablet) 1 gm PO 1HR_ACHS [facility] Medical Necessity - Tobacco Use Smoking Status: Former smoker Tobacco Use: Non-smoker Assessment/Plan All Active Problems Dysphagia (Acute) Clinical COVID-19 pneumonia (Acute) This is a 79 years old female patient presented to the emergency room because of shortness of breath and chest pain, found to have peripheral bilateral lung infiltrate on chest x-ray as well as CTA chest, tested negative for COVID-19 antigen and COVID-19 PCR and she was admitted for pneumonia although I think she does have clinical COVID-19 pneumonia. #1 Clinical acute bilateral COVID-19 pneumonia: Remained on IV Decadron and IV remdesivir as well as subcu Lovenox twice daily. She remains on 2 L of oxygen which is her baseline at home. Respiratory status is stable. Respiratory panel for viruses were negative. Blood cultures showed no growth in 48 hours. Infectious disease on the case. Plan to continue same treatment. Patient still not decisive about going home versus correction facility. Medically, she will be ready to be discharged in 1 or 2 days. 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 Cardiac etiology ruled out. Patient has been on nystatin p.o., Protonix and Mylanta as needed. Started on Carafate today. Various options about feeding requirements discussed with the patient. General surgery consulted, recommended that upper EGD is risky at this time because of Covid. Recommended temporary CorPak and later patient may need PEG tube placement. Patient is still reluctant to have either CorPak or PEG tube. She has been taking p.o. although small amount but reasonable. For now, plan to continue p.o., Ensure supplement, may need to be evaluated later for PEG tube placement. #3 paroxysmal atrial fibrillation: Last night, she went into A. fib with RVR, received IV metoprolol x1. Currently, rate is stable. Continue Cardizem and atenolol for rate control. She is not on anticoagulation. #4 COPD: Currently, remains on 2 L of oxygen. She does use home oxygen at 2 L. She is stable at this time. #5 hypertension: Blood pressure stable, continue atenolol, Cardizem. #6 non-small cell lung cancer: Status post chemotherapy and radiation, stable at this time, recommend follow-up with oncology as outpatient. #7 GERD: Continue PPI. #8 depression: Stable, continue Zoloft #9 DVT prophylaxis: Subcu Lovenox twice daily. This note was generated with [employer] dictation software. It may contain incorrect words, spelling, and punctuation that were not noted in checking the note before signing. Inpatient E&M: 96368 Subs Hosp L2
[2020-09-23] MEDS: Pantoprazole Sodium 40 MG Tablet PO (08:58)
[2020-09-23] MEDS: dilTIAZem CD 120 MG Capsule PO (08:58)
[2020-09-23] MEDS: Atenolol 50 MG Tablet PO (08:58)
[2020-09-23] MEDS: Sertraline 50 MG Tablet PO (08:58)
[2020-09-23] MEDS: Enoxaparin 30 MG/0.3 ML Syringe SC ×2 (08:59→21:30)
[2020-09-23] MEDS: dexAMETHasone 10 MG/ML Vial 6 MG IV (08:59)
[2020-09-23] MEDS: 0.9% Saline Lock 10 ML Syringe IV (09:00)
[2020-09-23] MEDS: NYSTATIN 500,000 UNIT/5 ML UDC 500000 UNIT PO ×4 (09:02→21:30)
--- NOTE | 2020-09-23 10:17 | CASEMGMT ---
SW spoke w/physician in regard to pt, pt states to physician she will need to go somewhere for rehab. SW called pt in room in regard to discharge plan. Pt confirms wants to go somewhere for rehab, is concerned about going home and that she may end up in the hospital a third time. SW reviewed nursing homes [facility] per pt's request off of the Medicare website, and reviewed the star ratings as well. SW explained to pt that we will also need to see which facilities may take her, since she is negative for COVID but clinically the physicians are stating she has it. Pt would like to go to [facility] or [facility], but wants to speak w/her daughter about it. Pt gave this SW permission to speak w/daughter. SW called daughter Lin. SW explained to her that pt gave this SW permission to speak w/her, and reviewed w/her that pt is stating wants to go to a long term. SW explained pt has said she wants to go to a facility in [place], and told this SW either [facility] or [facility]. Daughter states if she has to go would prefer [facility]. SW explained to daughter also that we may be limited in where pt can go however as though she has tested negative for COVID she is presenting as if she does have COVID. Daughter had many questions about pt's diagnosis, how long she would need to isolate, how her lungs could look so much worse just a week after having a scan after a radiation treatment when the lungs were clear. SW explained that these are all good questions for the nurse or doctor, SW is unsure, directed her to speak w/pt's RN. Daughter states she really does not want pt going to a long term and asked if she has to go. She states she stays w/pt during the week during the day, but she also works and leaves at night. Daughter states up until now she felt pt could manage at home. She also states does not understand why pt is on oxygen. SW reviewed PT notes showing pt is walking 15 to 25 feet and getting short of breath, having someone with her for safety. Daughter does state that pt was moving better when she was at home. SW explained it is ultimately up to the pt, but based on how she is moving at present she may not be able to manage well at home. SW also mentioned if daughter then stays w/pt, she have also have to isolate and not go to work. SW explained will have the RN speak w/her in regard to her questions. Daughter is also going to speak w/pt, and SW asked her to call this SW back either today or Friday to discuss the plan again. Plan: TBD, likely long term. SW will make referral Friday after checking in again w/pt regarding final decision to go home vs. SNF, and make referrals as indicated. JANNETTE Freire
[2020-09-23] MEDS: Sucralfate 1 GM Tablet PO ×3 (10:20→21:30)
[2020-09-23] MEDS: Zolpidem Tartrate 5 MG Tablet PO (21:55)
[2020-09-24] VITALS (11 sets, daily range): BP systolic 114–155; BP diastolic 70–96; PULSE 69–85; RESP 16–18; TEMP 36.4–36.8; O2SAT 94–98
[2020-09-24] MEDS: Sucralfate 1 GM Tablet PO ×4 (06:25→21:27)
--- NOTE | 2020-09-24 07:47 | PN_ITS ---
Patient Problems: Active and Suspected Problems Dysphagia (Acute) Subjective: Chief complaint follow-up after admission for clinical acute bilateral COVID-19 pneumonia and dysphagia. Patient seen and examined. No acute events overnight. No new complaints. Her breathing remained stable on 1.5 to 2 L of oxygen. She thinks that Carafate is helping her dysphagia and painful swallowing. No other complaints. Her vital signs are stable. - Physical Exam Vitals/I&O's: Vital Signs Temp Pulse Resp BP Pulse Ox 97.5 F L 75 17 118/70 94 09/24/20 03:00 09/24/20 07:36 09/24/20 03:00 09/24/20 03:00 09/24/20 03:00 Oxygen Flow Rate (L/min) 1.5 Oxygen Delivery Method Nasal Cannula Weight: 125 lb 10.616 oz Body Mass Index (BMI) 23.1 Intake and Output for Last 24 Hours 09/22/20 09/23/20 09/24/20 23:59 23:59 23:59 Intake Total 250 / 250 1150 / 1150 Output Total 200 / 200 350 / 450 100 / 100 Balance 50 / 50 800 / 700 -100 / -100 General: Alert, Oriented x3, Cooperative, No apparent distress HEENT: Atraumatic, PERRLA, EOMI, Normocephalic Oral: Moist Mucosa, No Gingival or Mucosal Lesions/ Ulcerations Neck: Supple, No JVD, Negative Carotid Bruits, Trachea Midline, Thyroid Normal Size and Texture Lungs: Clear to auscultation, Normal air movement, No rhonchi, No wheeze, No rales, Diminished Cardiovascular: Regular rate, Regular Rhythm, Normal S1, Normal S2, PMI Normal Abdomen: Bowel Sounds Present, Soft, Non Tender, Non-Distended, No Hepato- splenomegaly Extremities: No clubbing, No cyanosis, No edema Skin: No rashes, No breakdown Lymphatic: No Cervical, Supraclavicular, or Inguinal Adenopathy Neurological: Cranial nerves II-XII grossly intact, Neuro grossly intact Psych/Mental Status: Normal Affect, Appropriate, Alert and oriented to time, place, person, mood and affect Microbiology Past 72 Hours 09/19/20 17:10 Blood Culture (Wb) - Femoral Artery Blood Culture - Preliminary No growth in 48 hours. 09/19/20 15:45 Blood Culture (Wb) - Anticubital Right Blood Culture - Preliminary No growth in 48 hours. Current Medications Acetaminophen (Acetaminophen 325 Mg Tablet) 650 mg PO Q6H PRN PRN PRN Reason: Pain Score 1-10/Temp > 100.7 F Al Hydroxide/Mg Hydroxide (Mag Hydrox/Al Hydrox/Simeth 30 Ml Udc) 30 ml PO Q6H PRN PRN PRN Reason: Indigestion, heartburn Last Admin: 09/21/20 11:06 Dose: 30 ml Documented by: Albuterol Sulfate (Albuterol Sulfate 18 Gm Inhaler (200 Puffs)) 2 puff IH Q4H PRN PRN PRN Reason: Shortness of breath, wheezing Last Admin: 09/22/20 15:35 Dose: 2 puff Documented by: Atenolol (Atenolol 50 Mg Tablet) 50 mg PO DAILY [facility] Last Admin: 09/23/20 08:58 Dose: 50 mg Documented by: Dexamethasone Sodium Phosphate (Dexamethasone 10 Mg/Ml Vial) 6 mg IV DAILY [facility] Last Admin: 09/23/20 08:59 Dose: 6 mg Documented by: Diltiazem HCl (Diltiazem Cd 120 Mg Capsule) 120 mg PO DAILY [facility] Last Admin: 09/23/20 08:58 Dose: 120 mg Documented by: Enoxaparin Sodium (Enoxaparin 30 Mg/0.3 Ml Syringe) 30 mg SC BID [facility] Last Admin: 09/23/20 21:30 Dose: 30 mg Documented by: Sodium Chloride () 250 mls @ 15 mls/hr IV .[id number] PRN PRN Reason: Saline Flush Sodium Chloride () 250 mls @ 15 mls/hr IV .[id number] PRN PRN Reason: Additional IVPB Infusion Remdesivir 100 mg/ Sodium (Chloride) 250 mls @ 125 mls/hr IV DAILY [facility] Stop: 09/24/20 11:59 Last Infusion: 09/23/20 12:30 Dose: Infused Documented by: Miscellaneous Information (Inhaler, Assist Devices 1 Each Spacer) 1 each INHALATION PRN PRN PRN Reason: WITH ALBUTEROL INHALER Morphine Sulfate (Morphine 2 Mg/Ml Syringe) 2 mg IV Q3H PRN PRN PRN Reason: Pain Score 6-10 Last Admin: 09/23/20 21:55 Dose: 2 mg Documented by: Nystatin (Nystatin 500,000 Unit/5 Ml Udc) 500,000 unit PO 4X/DAY [facility] Last Admin: 09/23/20 21:30 Dose: 500,000 unit Documented by: Ondansetron HCl (Ondansetron 4 Mg/2 Ml Vial) 4 mg IV Q8H PRN PRN PRN Reason: NAUSEA/VOMITING Last Admin: 09/21/20 11:00 Dose: 4 mg Documented by: Pantoprazole Sodium (Pantoprazole Sodium 40 Mg Tablet) 40 mg PO DAILY [facility] Last Admin: 09/23/20 08:58 Dose: 40 mg Documented by: Polyethylene Glycol (Polyethylene Glycol 3350 17 Gm Packet) 17 gm PO DAILY PRN PRN PRN Reason: Constipation Senna (Senna Tablet) 1 tablet PO BID PRN PRN PRN Reason: Constipation Last Admin: 09/23/20 02:14 Dose: 1 tablet Documented by: Sertraline HCl (Sertraline 50 Mg Tablet) 50 mg PO DAILY [facility] Last Admin: 09/23/20 08:58 Dose: 50 mg Documented by: Sodium Chloride (0.9% Saline Lock 10 Ml Syringe) 10 - 40 ml IV UD PRN PRN Reason: SALINE FLUSH Last Admin: 09/23/20 09:00 Dose: 10 ml Documented by: Sucralfate (Sucralfate 1 Gm Tablet) 1 gm PO 1HR_ACHS [facility] Last Admin: 09/24/20 06:25 Dose: 1 gm Documented by: Zolpidem Tartrate (Zolpidem Tartrate 5 Mg Tablet) 5 mg PO QHS PRN PRN PRN Reason: INSOMNIA Last Admin: 09/23/20 21:55 Dose: 5 mg Documented by: Medical Necessity - Tobacco Use Smoking Status: Former smoker Tobacco Use: Non-smoker Assessment/Plan All Active Problems Dysphagia (Acute) Clinical COVID-19 pneumonia (Acute) This is a 79 years old female patient presented to the emergency room because of shortness of breath and chest pain, found to have peripheral bilateral lung infiltrate on chest x-ray as well as CTA chest, tested negative for COVID-19 antigen and COVID-19 PCR and she has been treated as a case of acute bilateral clinical COVID-19 pneumonia. #1 Clinical acute bilateral COVID-19 pneumonia: Remained on IV Decadron and IV remdesivir as well as subcu Lovenox twice daily. Today, which would be last dose of remdesivir. Today, she is on 1.5 L of oxygen, has been at 2 L at baseline at home. Respiratory status is stable. Respiratory panel for viruses were negative. Blood cultures showed no growth in 48 hours. Infectious disease on the case. Plan to continue same treatment. Plan: Repeat CBC and CMP tomorrow morning, [facility]. 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 Cardiac etiology ruled out. Patient has been on nystatin p.o., Protonix, Carafate and Mylanta as needed. Patient thinks that Carafate is helping her symptoms. Various options about feeding requirements discussed with the patient. General surgery consulted, recommended that upper EGD is risky at this time because of Covid. Recommended temporary CorPak and later patient may need PEG tube placement. Patient refused to have either CorPak or PEG tube. Plan for now is to continue as much as oral intake that patient can take, protein supplement, continue current nystatin, Protonix, Carafate and Mylanta, and patient need to be reevaluated in couple of weeks and probably may need to go for upper EGD if her symptoms persists. #3 paroxysmal atrial fibrillation: Heart rate, rate is stable. Continue Car dizem and atenolol for rate control. She is not on anticoagulation. #4 COPD: Currently, she is on 1.5 L of oxygen. She does use home oxygen at 2 L. She is stable at this time. #5 hypertension: Blood pressure stable, continue atenolol, Cardizem. #6 non-small cell lung cancer: Status post chemotherapy and radiation, stable at this time, recommend follow-up with oncology as outpatient. #7 GERD: Continue PPI. #8 depression: Stable, continue Zoloft #9 DVT prophylaxis: Subcu Lovenox twice daily. This note was generated with ShotClip dictation software. It may contain incorrect words, spelling, and punctuation that were not noted in checking the note before signing. Inpatient E&M: 71998 Subs Hosp L2
[2020-09-24] MEDS: NYSTATIN 500,000 UNIT/5 ML UDC 500000 UNIT PO ×4 (09:25→21:27)
[2020-09-24] MEDS: dexAMETHasone 10 MG/ML Vial 6 MG IV (09:25)
[2020-09-24] MEDS: Pantoprazole Sodium 40 MG Tablet PO (09:25)
[2020-09-24] MEDS: dilTIAZem CD 120 MG Capsule PO (09:25)
[2020-09-24] MEDS: Enoxaparin 30 MG/0.3 ML Syringe SC ×2 (09:25→21:27)
[2020-09-24] MEDS: Atenolol 50 MG Tablet PO (09:25)
[2020-09-24] MEDS: Sertraline 50 MG Tablet PO (09:25)
[2020-09-24] MEDS: 0.9% Saline Lock 10 ML Syringe IV ×2 (13:48→21:39)
[2020-09-24] MEDS: Morphine 2 MG/ML Syringe IV (13:48)
--- NOTE | 2020-09-24 20:38 | PCS.PANDOC ---
PANDEMIC DOCUMENTATION INITIATED: Date: 09/19/20 Time:
[2020-09-24] MEDS: Zolpidem Tartrate 5 MG Tablet PO (21:39)
[2020-09-24] MEDS: Ondansetron 4 MG/2 ML Vial IV (21:39)
[2020-09-25] VITALS (7 sets, daily range): BP systolic 109–149; BP diastolic 57–92; PULSE 72–78; RESP 18; TEMP 36.3–36.6; O2SAT 92–98
[2020-09-25] MEDS: Sucralfate 1 GM Tablet PO ×3 (06:06→14:58)
[2020-09-25 06:12] LABS: Absolute Lymphocyte Count 0.36 X10^3/uL (0.83-4.51); Absolute Neutrophil Count 3.6 X10^3/uL (2.0-7.7); Basophil# 0.01 X10^3/uL; Basophil% 0.2 % (0-1); Eosinophil# 0.01 X10^3/uL; Eosinophils% 0.2 % (0-5); Hematocrit 33.9 % (37-47); Hemoglobin 11.3 g/dL (12.0-15.0); Lymphocyte # 0.36 X10^3/ul (4.0); Lymphocyte % 8.5 % (19-41); Mean Corp Hgb Conc 33.3 g/dL (32-36); Mean Corpuscular Hgb 29.4 pg (27.0-32.0); Mean Corpuscular Volume 88.1 fL (81-99); Mean Platelet Vol. 11.1 fl (6.2-12.0); Monocyte# 0.26 X10^3/uL; Monocyte% 6.1 % (0-10); NRBC Flagged by Analyzer 0 % (0-5); Neutrophil # 3.59 X10^3/uL (2.7-7.7); Neutrophil % 84.3 % (47-70); POSITIVE DIFFERENTIAL YES; Platelet Count 112 K/mm3 (150-450); RBC Distribution Width CV 14.6 % (11.6-14.6); RBC Distribution Width SD 47.3 fl (35.1-43.9); Red Blood Count 3.85 M/mm3 (4.2-5.4); White Blood Count 4.3 K/mm3 (4.4-11.0)
[2020-09-25 06:16] LABS: Differential Indicated SCAN CRITERIA MET
[2020-09-25 06:41] LABS: ALB/GLOB Ratio 0.8 RATIO (0.9-2.4); AST(SGOT) 14 U/L (15-37); Alanine Aminotransfer ALT/SGPT 15 U/L (13-56); Albumin, Serum 2.5 g/dL (3.2-5.0); Alkaline Phosphatase 56 U/L (45-117); Anion Gap 6 (5-15); BUN 21 mg/dL (7-18); BUN/Creat Ratio 37.7 RATIO (10-20); Calcium,Total 8.8 mg/dL (8.5-10.1); Chloride 98 mmol/L (98-107); Creatinine, Serum 0.56 mg/dL (0.55-1.02); EST Glomerular Filtration Rate 111 mL/min (>60); Est Glom Filt Rate - Afr Amer 135 mL/min (>60); Estimated Creatinine Clearance 36.08 ml/min; Globulin 3.1 g/dL (2.2-4.2); Glucose 132 mg/dL (74-106); Protein, Total 5.6 g/dL (6.4-8.2); Sodium Level 136 mmol/L (136-145)
[2020-09-25] MEDS: 0.9% Saline Lock 10 ML Syringe IV (08:34)
[2020-09-25] MEDS: Potassium Chloride 10mEq/100mL 10 MEQ/100 ML IV.SOLN. 100 MEQ IV BOLUS ×4 (08:35→12:24)
--- NOTE | 2020-09-25 08:37 | CASEMGMT ---
Addendum entered by Mitzy Park 09/25/20 09:49: FINA called Ana again with [facility], got her voice mail. FINA called Nydia also at [facility], message left. JANNETTE Freire Original Note: SW called [facility], they are not able to take any patients at this time, as they have a COVID outbreak. They may have beds by Friday. SW called pt in room, she did not answer. FINA called daughter Lin to clarify plan. Lin states the plan is for alf, and [facility] is their first choice. SW explained that [facility] is not taking pts at this time due to a COVID outbreak, and may be able to take pts by Friday. SW explained to daughter pt is ready today however. SW inquired if she is in agreement w/referral to [facility]. SW explained will send referral and let her know. FINA called Ana at [facility], message left, referral faxed. FINA will continue to follow. JANNETTE Freire
[2020-09-25] MEDS: Enoxaparin 30 MG/0.3 ML Syringe SC (08:49)
[2020-09-25] MEDS: dilTIAZem CD 120 MG Capsule PO (08:49)
[2020-09-25] MEDS: Atenolol 50 MG Tablet PO (08:49)
[2020-09-25] MEDS: Pantoprazole Sodium 40 MG Tablet PO (08:49)
[2020-09-25] MEDS: Sertraline 50 MG Tablet PO (08:49)
[2020-09-25] MEDS: dexAMETHasone 10 MG/ML Vial 6 MG IV (08:50)
[2020-09-25] MEDS: NYSTATIN 500,000 UNIT/5 ML UDC 500000 UNIT PO ×3 (08:50→17:26)
[2020-09-25] MEDS: Morphine 2 MG/ML Syringe IV (09:57)
--- NOTE | 2020-09-25 11:56 | CASEMGMT ---
Addendum entered by Mitzy Park 09/25/20 16:11: COVID test is still pending. RN called lab, the COVID test results will take another approximately 30 minutes. SW called Nydia at [facility], they can take pt into this evening, as long as the COVID test is negative. SW called daughter, explained to her the COVID test is still pending and may not get results until after this SW is gone for the day. SW explained the snf can still pt this evening as long as the test is negative, and the nurse will let her know either way. SW explained we will set up a wheelchair van to take pt over, did let daughter know that pt will be charged for this. Daughter states understanding. SW explained if COVID test comes back positive, pt will stay here this evening and SW will speak w/daughter tomorrow about other options. Daughter states understanding. SW also called pt in room and explained that we are still waiting for the COVID results, if it's negative she can still go to [facility] today, if it's positive we will have to look at other options tomorrow. Pt states understanding. SW also let her know did speak w/daughter as well to let her know. Nydia then called from [facility] inquiring if pt has been to another snf, due to what is showing up in the system. FINA called pt in room, she states she has never been to a snf before, this is the first time. FINA relayed this information to Nydia at [facility]. FINA did complete the hospital exemption in [place], and faxed the discharge paperwork to [facility]. Green sheet with chart for floor staff to follow depending on results of the COVID test. If pt is negative, she will still go to [facility] today. JANNETTE Freire Addendum entered by Mitzy Park 09/25/20 14:29: FINA spoke w/Ana at [facility], she is requesting a COVID test for pt, and as long as it is negative they can take pt today. If it is positive they cannot take pt. FINA notified physician, and COVID test ordered. JANNETTE Freire Original Note: SW called Ana at [facility], she states that they do have bed availability, however their internet is down and cannot receive referrals at present. Ana states that they anticipate the system to be back up soon, and once it is she will review the referral and call this SW back. She states there is no other way to get the referral over at this time. She states that they do have bed availability. SW called pt's daughter, let her know that [facility] does have beds available, however their internet is down. SW explained once the internet is back up they will review the referral, and this SW will call daughter back once SW hears back again from [facility]. SW also called into the pt's room, let her know that [facility] cannot take her at this time as they do not have any beds available, however [facility] does have beds and SW is waiting to hear back from [facility] to see if they can take her. FINA also explained to pt that their internet is down and once it is back up they will review her information and let this SW know if they can take pt. FINA will continue to follow. JANNETTE Freire
--- NOTE | 2020-09-25 11:59 | PN_ITS ---
Patient Problems: Active and Suspected Problems Dysphagia (Acute) Subjective: Patient seen and examined. She has no complaints today. Review of systems is otherwise negative. She is awaiting placement. Potassium is 3. Vitals/I&O's: Vital Signs Temp Pulse Resp BP Pulse Ox 97.4 F L 78 18 109/57 L 95 09/25/20 08:58 09/25/20 08:58 09/25/20 08:58 09/25/20 08:58 09/25/20 08:58 Oxygen Flow Rate (L/min) 1.5 Oxygen Delivery Method Room Air Weight: 125 lb 10.616 oz Body Mass Index (BMI) 23.1 Intake and Output for Last 24 Hours 09/23/20 09/24/20 09/25/20 23:59 23:59 23:59 Intake Total 1150 / 1150 1400 / 1400 950 / 950 Output Total 350 / 450 800 / 800 600 / 600 Balance 800 / 700 600 / 600 350 / 350 General: Alert, Oriented x3, Cooperative, No apparent distress HEENT: Atraumatic, PERRLA, EOMI, Normocephalic Oral: Moist Mucosa, No Gingival or Mucosal Lesions/ Ulcerations Neck: Supple, No JVD, Negative Carotid Bruits, Trachea Midline, Lungs: Clear to auscultation, Normal air movement, No rhonchi, No wheeze, No rales, Diminished Cardiovascular: Regular rate, Regular Rhythm, Normal S1, Normal S2, PMI Normal Abdomen: Bowel Sounds Present, Soft, Non Tender, Non-Distended, No Hepato- splenomegaly Extremities: No clubbing, No cyanosis, No edema Skin: No rashes, No breakdown Lymphatic: No Cervical, Supraclavicular, or Inguinal Adenopathy Neurological: Cranial nerves II-XII grossly intact, Neuro grossly intact Psych/Mental Status: Normal Affect, Appropriate, Alert and oriented to time, place, person, mood and affect Microbiology Past 72 Hours 09/19/20 17:10 Blood Culture (Wb) - Femoral Artery Blood Culture - Final No growth in 5 days. 09/19/20 15:45 Blood Culture (Wb) - Anticubital Right Blood Culture - Final No growth in 5 days. Laboratory Results 09/25/20 05:15: WBC 4.3 L, RBC 3.85 L, Hgb 11.3 L, Hct 33.9 L, MCV 88.1, MCH 29.4, MCHC 33.3, RDW Std Deviation 47.3 H, RDW Coeff of Rashid 14.6, Plt Count 112 L, MPV 11.1, Immature Gran % (Auto) 0.700, Neut % (Auto) 84.3 H, Lymph % (Auto) 8.5 L, Hand % (Auto) 6.1, Eos % (Auto) 0.2, Baso % (Auto) 0.2, Absolute Neuts (auto) 3.6, Absolute Lymphs (auto) 0.36 L, Nucleated RBC % 0, Diff Path Review December09/25/20 05:15: Sodium 136, Potassium 3.0 L, Chloride 98, Carbon Dioxide 32.0, Anion Gap 6, BUN 21 H, Creatinine 0.56, Estim Creat Clear Calc 36.08, Est GFR (MDRD) Af Amer 135, Est GFR (MDRD) Non-Af 111, BUN/Creatinine Ratio 37.7 H, Glucose 132 H, Calcium 8.8, Total Bilirubin 0.60, AST 14 L, ALT 15, Alkaline Phosphatase 56, Total Protein 5.6 L, Albumin 2.5 L, Globulin 3.1, Albumin/Globulin Ratio 0.8 L Diagnostic Data Chest X-Ray 09/19/20 16:05 IMPRESSION: Increased peripheral infiltrates suspicious for atypical viral pneumonia. The remainder of the findings appear stable. Electronically Signed: Franklyn Bond DO at 16:31 EST Tel [phone], Service support , Chest CTA 09/19/20 17:12 IMPRESSION: 1. No evidence of pulmonary embolus. 2. No aortic dissection or aneurysm. 3. Left pleural effusion and atelectasis. This appears stable. 4. Diffuse ground glass infiltrates most marked in the right lung. Question COVID 19 pneumonia. 5. Cardiomegaly with pericardial effusion. 6. Abdominal aortic aneurysm. Electronically Signed: Franklyn Bond DO at 18:21 EST Tel [phone], Service support , Current Medications Acetaminophen (Acetaminophen 325 Mg Tablet) 650 mg PO Q6H PRN PRN PRN Reason: Pain Score 1-10/Temp > 100.7 F Al Hydroxide/Mg Hydroxide (Mag Hydrox/Al Hydrox/Simeth 30 Ml Udc) 30 ml PO Q6H PRN PRN PRN Reason: Indigestion, heartburn Last Admin: 09/21/20 11:06 Dose: 30 ml Documented by: Albuterol Sulfate (Albuterol Sulfate 18 Gm Inhaler (200 Puffs)) 2 puff IH Q4H PRN PRN PRN Reason: Shortness of breath, wheezing Last Admin: 09/25/20 08:50 Dose: 2 puff Documented by: Atenolol (Atenolol 50 Mg Tablet) 50 mg PO DAILY [facility] Last Admin: 09/25/20 08:49 Dose: 50 mg Documented by: Dexamethasone Sodium Phosphate (Dexamethasone 10 Mg/Ml Vial) 6 mg IV DAILY [facility] Last Admin: 09/25/20 08:50 Dose: 6 mg Documented by: Diltiazem HCl (Diltiazem Cd 120 Mg Capsule) 120 mg PO DAILY [facility] Last Admin: 09/25/20 08:49 Dose: 120 mg Documented by: Enoxaparin Sodium (Enoxaparin 30 Mg/0.3 Ml Syringe) 30 mg SC BID [facility] Last Admin: 09/25/20 08:49 Dose: 30 mg Documented by: Sodium Chloride () 250 mls @ 15 mls/hr IV .[id number] PRN PRN Reason: Saline Flush Sodium Chloride () 250 mls @ 15 mls/hr IV .[id number] PRN PRN Reason: Additional IVPB Infusion Miscellaneous Information (Inhaler, Assist Devices 1 Each Spacer) 1 each INHALATION PRN PRN PRN Reason: WITH ALBUTEROL INHALER Morphine Sulfate (Morphine 2 Mg/Ml Syringe) 2 mg IV Q3H PRN PRN PRN Reason: Pain Score 6-10 Last Admin: 09/25/20 09:57 Dose: 2 mg Documented by: Nystatin (Nystatin 500,000 Unit/5 Ml Udc) 500,000 unit PO 4X/DAY [facility] Last Admin: 09/25/20 08:50 Dose: 500,000 unit Documented by: Ondansetron HCl (Ondansetron 4 Mg/2 Ml Vial) 4 mg IV Q8H PRN PRN PRN Reason: NAUSEA/VOMITING Last Admin: 09/24/20 21:39 Dose: 4 mg Documented by: Pantoprazole Sodium (Pantoprazole Sodium 40 Mg Tablet) 40 mg PO DAILY [facility] Last Admin: 09/25/20 08:49 Dose: 40 mg Documented by: Polyethylene Glycol (Polyethylene Glycol 3350 17 Gm Packet) 17 gm PO DAILY PRN PRN PRN Reason: Constipation Senna (Senna Tablet) 1 tablet PO BID PRN PRN PRN Reason: Constipation Last Admin: 09/23/20 02:14 Dose: 1 tablet Documented by: Sertraline HCl (Sertraline 50 Mg Tablet) 50 mg PO DAILY [facility] Last Admin: 09/25/20 08:49 Dose: 50 mg Documented by: Sodium Chloride (0.9% Saline Lock 10 Ml Syringe) 10 - 40 ml IV UD PRN PRN Reason: SALINE FLUSH Last Admin: 09/25/20 08:34 Dose: 10 ml Documented by: Sucralfate (Sucralfate 1 Gm Tablet) 1 gm PO 1HR_ACHS [facility] Last Admin: 09/25/20 11:15 Dose: 1 gm Documented by: Zolpidem Tartrate (Zolpidem Tartrate 5 Mg Tablet) 5 mg PO QHS PRN PRN PRN Reason: INSOMNIA Last Admin: 09/24/20 21:39 Dose: 5 mg Documented by: STROKE Vital Signs/Narrative: Vital Signs Temp Pulse Resp BP Pulse Ox 09/25/20 08:58 97.4 F L 78 18 109/57 L 95 09/25/20 08:46 95 Medical Necessity - Tobacco Use Smoking Status: Former smoker Tobacco Use: Non-smoker Assessment/Plan All Active Problems Dysphagia (Acute) Clinical COVID-19 pneumonia (Acute) #COVID 19 pneumonia * on room air. * on decadron and remdesivir * now on room air * blood cultures showed no growth * #Odynophagia and dysphagia * has a history of radiation esophagitis * On nystatin, Protonix, Carafate and Mylanta. * To follow-up with general surgery on outpatient basis for EGD as needed if symptoms persist. * #Hypokalemia: K is 3. Will replace and monitor. Check magnesium # paroxysmal A. fib: Rate controlled. On Cardizem and atenolol. Not anticoagulated. #COPD: Was on room air at time of review though she does use 2 L of oxygen at home. # Hypertension: stable. On atenolol and cardizem #Non small cell lung cancer * s/p chemo and radiation * follow up with oncology on outpatient basis * #Depression; on zoloft DVT prophylaxis: lovenox Disposition: awaiting placement Inpatient E&M: 87515 Subs Hosp L2
[2020-09-25 13:24] LABS: Pathologist Review Reviewed
--- NOTE | 2020-09-25 14:45 | PCM.TXEXTCAR ---
- Diet 09/19/20 22:28 Diet: Regular - General Food consistency:: Regular Liquid Consistency:: Regular/Thin Type of Dietary Supplement:: Ensure Enlive 240mL Is pt able to select menu?: Yes Diet Comments: ES Pudding L&D;1 scoop beneprotien in hot cereal in AM - Routine Orders/Code Status Enema Type: Fleetz Enema Frequency: Daily PRN Suppository Type: Dulcolax 10mg Suppository Frequency: Daily PRN O2 Frequency: PRN Keep PO Greater than or Equal to (%): 92 Code Status: DNRCC - Therapies Weight Bearing: Weight bearing as tolerated Physical Therapy: Eval and Treat Occupational Therapy: Eval and Treat - Allergies/Procedures Done in Hospital Allergies/Adverse Reactions: Allergies codeine Adverse Reaction (Verified 09/19/20 14:58) Abd cramps/diarrhea Procedures: None - Type of Care/Length of Stay Estimated LOS: Convalescent Care Less Than 30 days Type of Care Needed: Skilled Rehab Potential: Fair Prognosis: Fair - Additional Orders/Day of Discharge Day of Discharge: 09/25/20 - Dietary and Speech Recommendations Dietitian Recommendations/Changes: Continue regular diet d/t s/s malnutrition- consistency per [employer]. Will continue ensure enlive w/ all meals. Will continue ensure pudding w/ lunch and dinner; 1 scoop beneprotein w/ hot cereals at breakfast. - Follow Up Care Primary Care Physician: Jamil Hooks MD [Primary Care Provider] - Please follow up with your Primary Care Physician in: 1-2 weeks
[2020-09-25 16:22] LABS: Probe Check PASS; Specimen Processing Control PASS
--- NOTE | 2020-09-25 20:46 | NURSING ---
report given to Kamala at [facility].
[2020-09-26 12:40] LABS: Pathologist Review Reviewed
--- NOTE | 2020-09-29 07:25 | DS.PCM_ITS ---
Discharge Date and Diagnosis - Problem List Patient Problems: Active and Suspected Problems Dysphagia (Acute) Date of Admission: 09/19/20 Date of Discharge: 09/25/20 - Primary Discharge Diagnosis Acute Problems: Active Problems Dysphagia (Acute) - Secondary Discharge Diagnosis Chronic Problems: Chronic Problems Non-small cell lung cancer (NSCLC) (Chronic) HTN (hypertension) (Chronic) GERD (gastroesophageal reflux disease) (Chronic) COPD (chronic obstructive pulmonary disease) (Chronic) PAF (paroxysmal atrial fibrillation) (Chronic) Depression (Chronic) Hospital Course and Treatment Imaging Results: Diagnostic Data Chest X-Ray 09/19/20 16:05 IMPRESSION: Increased peripheral infiltrates suspicious for atypical viral pneumonia. The remainder of the findings appear stable. Electronically Signed: Franklyn Bond DO at 16:31 EST Tel [phone], Service support , Chest CTA 09/19/20 17:12 IMPRESSION: 1. No evidence of pulmonary embolus. 2. No aortic dissection or aneurysm. 3. Left pleural effusion and atelectasis. This appears stable. 4. Diffuse ground glass infiltrates most marked in the right lung. Question COVID 19 pneumonia. 5. Cardiomegaly with pericardial effusion. 6. Abdominal aortic aneurysm. Electronically Signed: Franklyn Bond DO at 18:21 EST Tel [phone], Service support , ITZEL- Dr aguirre Operations: None Procedures: None Summary of Care Provided: The patient is a 79 year old F with an extensive past medical history as outlined including history of lung cancer s/p radiation and chemotherapy was admitted through the ED on 09/19/2020 with a complaint of progressively worsening chest pain and shortness of breath about 2 to 3 days prior to admission with associated cough productive of whitish sputum. Labs done were unremarkable and BMP showed chronic hyponatremia with sodium of 132. Covid rapid antigen and PCR test were both negative and chest x-ray showed increased peripheral infiltrate suspicious for atypical viral pneumonia. CTA of the chest showed no PE and showed left pleural effusion with atelectasis and diffuse groundglass infiltrate most marked in the right lung. She was admitted and managed for community- acquired pneumonia. She was started on IV vancomycin and Zosyn. He was consulted on account of strong suspicion for Covid pneumonia. She was started on remdesivir and dexamethasone. Per ID, antibiotics were discontinued and she was continued on remdesivir and Decadron. Treatment was therefore managed for clinical Covid pneumonia though Covid 19 test was negative. Her stay was complicated by hypokalemia which resolved with replacement and also she had odynophagia and dysphagia which was thought to be due to radiation esophagitis. She was put on Carafate, Mylanta and Protonix as well as nystatin. She completed a course of remdesivir and steroids. Patient remained stable and was evaluated by physical therapy and intermediate home. She was [facility] to [facility] on 09/25/2020. Follow-up with her primary care doctor in 1 to 2 weeks. Patient seen and examined prior to discharge. She had no complaints. Review systems otherwise negative. Labs and vitals reviewed. Medication reviewed and reconciled. O/E: Vital Signs Temp Pulse Resp BP Pulse Ox 97.8 F 74 18 124/65 H 95 09/25/20 15:00 09/25/20 15:00 09/25/20 15:00 09/25/20 15:00 09/25/20 15:00 General: Alert, Oriented x3, Cooperative, No apparent distress HEENT: Atraumatic, PERRLA, EOMI, Normocephalic Oral: Moist Mucosa, No Gingival or Mucosal Lesions/ Ulcerations Neck: Supple, No JVD, Negative Carotid Bruits, Trachea Midline, Lungs: Clear to auscultation, Normal air movement, No rhonchi, No wheeze, No rales, Diminished Cardiovascular: Regular rate, Regular Rhythm, Normal S1, Normal S2, PMI Normal Abdomen: Bowel Sounds Present, Soft, Non Tender, Non-Distended, No Hepato- splenomegaly Extremities: No clubbing, No cyanosis, No edema Skin: No rashes, No breakdown Lymphatic: No Cervical, Supraclavicular, or Inguinal Adenopathy Neurological: Cranial nerves II-XII grossly intact, Neuro grossly intact Psych/Mental Status: Normal Affect, Appropriate, Alert and oriented to time, p lace, person, mood and affect Plan is for dc to SNF. Patient Problems: Active and Suspected Problems Dysphagia (Acute) - Physical Exam Vitals/I&O's: Vital Signs Temp Pulse Resp BP Pulse Ox 97.8 F 74 18 124/65 H 95 09/25/20 15:00 09/25/20 15:00 09/25/20 15:00 09/25/20 15:00 09/25/20 15:00 Oxygen Flow Rate (L/min) 90 Oxygen Delivery Method Room Air Weight: 125 lb 10.616 oz Body Mass Index (BMI) 23.1 Home Medications: Medications to take at Discharge Albuterol Inhaler [Ventolin Hfa] 1 - 2 puff INHALATION Q4H PRN PRN 08/21/20 Atenolol [Tenormin] 50 mg PO DAILY 08/21/20 Dexamethasone [Decadron] 2 mg PO QODAY 08/21/20 Diltiazem HCl [Cardizem] 120 mg PO DAILY 08/21/20 Enoxaparin Sodium [Lovenox] 40 mg SQ DAILY 08/21/20 Ipratropium/Albuterol Respimat [Combivent Respimat Inhal [place]] 1 puff INHALATION 4X/DAY 08/21/20 Nystatin 5 ml PO 4X/DAY 08/21/20 Ondansetron [Zofran] 8 mg PO Q8H PRN PRN 08/21/20 Polyethylene Glycol 3350 [Miralax] 17 gm PO PRN PRN 08/21/20 Senna [Senokot] 1 tab PO PRN PRN 08/21/20 Omeprazole 40 mg PO DAILY 09/19/20 Sertraline HCl 50 mg PO DAILY 09/19/20 Primary Care Physician: Jamil Hooks MD [Primary Care Provider] - Please follow up with your Primary Care Physician in: 1-2 weeks Disposition: Half-Way facility Minutes spent on discharge:: 40 Patient Condition:: Stable Medical Necessity - Tobacco Use Smoking Status: Former smoker Tobacco Use: Non-smoker Meaningful Use Info Meaningful Use Diagnoses (Choose all that apply): None applicable Inpatient E&M: 81580 Disch Hosp
== END 2020-09-25 21:15 | disposition skilled nursing facility (03) | DRG 177 ==
LOC: ED 19:00 → MS3 20:31 → ICU 09-20 09:12 → MS2 09-21 16:50
PROVIDERS: Hospitalist; Admitting Provider Internal Medicine; Emergency Provider Emergency Medicine; PCP Family Medicine; Visit Provider Student in an Organized Health Care Education/Training Program
DX: U07.1 COVID-19 (principal); J18.9 Pneumonia, unspecified organism; J44.0 Chronic obstructive pulmonary disease with (acute) lower respiratory infection; I31.3 Pericardial effusion (noninflammatory); C34.02 Malignant neoplasm of left main bronchus; E87.1 Hypo-osmolality and hyponatremia; J44.1 Chronic obstructive pulmonary disease with (acute) exacerbation; E87.6 Hypokalemia; R13.10 Dysphagia, unspecified; I48.0 Paroxysmal atrial fibrillation; F32.9 Major depressive disorder, single episode, unspecified; K21.9 Gastro-esophageal reflux disease without esophagitis; I10 Essential (primary) hypertension; K20.80 Other esophagitis without bleeding; Y84.2 Radiological procedure and radiotherapy as the cause of abnormal reaction of the patient, or of later complication, without mention of misadventure at the time of the procedure; Z92.21 Personal history of antineoplastic chemotherapy; Z92.3 Personal history of irradiation; Z66 Do not resuscitate; Z87.891 Personal history of nicotine dependence
CPT/HCPCS: 36415; 71045; 71275; 80053; 80202; 82550; 83605; 83690; 84145; 84484; 85025; 85379; 85610; 87040; 87426; 87633; 87635; 92610; 93005; 93306; 94640; 97110; 97162; 97166; 97530; 97535; 97802; 97803; 99251; 99285; J7030; J7050; Q9957; Q9967; A4216; C8929; G0463; J2405; U0002